=== PATIENT | male | born 1935 | race Caucasian/White ===

== ENCOUNTER 2018-06-13 14:56 | Emergency (ER) | payer MEDICARE, OTHER ==
[2018-06-13 15:56] VITALS: BP 125/51
[2018-06-13] MEDS ORDERED: Doxycycline 100 MG in Sodium Chloride 0.9% 100 ML IV ONE (16:09)
[2018-06-13] MEDS ORDERED: Sodium Chloride 0.9% 10 ML Syringe FLUSH PRN (16:09)
--- NOTE | 2018-06-13 16:11 | EDM.PDOC ---
ED HPI GENERAL MEDICAL PROBLEM - General Chief Complaint: General Stated Complaint: WEAK/FEVER/DOESN'T FEEL WELL Time Seen by Provider: 06/13/18 16:01 Source of Information: Reports: Patient, Family, RN Notes Reviewed History Limitations: Reports: No Limitations - History of Present Illness INITIAL COMMENTS - FREE TEXT/NARRATIVE: 82-year-old gentleman presents emergency department today complaint of body aches fever generalized feeling ill, he states he's had it for a few days he has some good days and bad days it tends to wax and wane. No nausea vomiting shortness breath or chest pain he does admit to finding a deer tick about 3-4 weeks ago that was attached he is unsure of the duration - Related Data Allergies Allergy/AdvReac Type Severity Reaction Status Date / Time naproxen sodium [From Aleve] Allergy Other Verified 06/13/18 15:32 Sulfa (Sulfonamide Allergy Other Verified 06/13/18 15:32 Antibiotics) Home Meds: Home Meds Aspirin [Halfprin] 81 mg PO DAILY 03/24/16 [History] Felodipine [Felodipine ER] 10 mg PO DAILY 03/24/16 [History] Fluocinonide [Lidex 0.05% Crm] 1 applic TOP BID 03/24/16 [History] Lisinopril 40 mg PO DAILY 03/24/16 [History] Simvastatin [Zocor] 20 mg PO BEDTIME 03/24/16 [History] Acetaminophen 1 tab PO BID 04/10/16 [History] Multivitamin [Multivitamins] 2 cap PO DAILY 04/10/16 [History] Nitroglycerin [Nitrostat] 1 tab SL ASDIRECTED PRN 04/10/16 [History] Past Medical History HEENT History: Reports: Cataract Cardiovascular History: Reports: High Cholesterol, Hypertension Genitourinary History: Reports: Renal Calculus Musculoskeletal History: Reports: Fracture - Past Surgical History HEENT Surgical History: Reports: Cataract Surgery Cardiovascular Surgical History: Reports: Carotid Endarterectomy, Other (See Below) GI Surgical History: Reports: Colonoscopy Social & Family History - Tobacco Use Smoking Status *Q: Never Smoker ED ROS GENERAL - Review of Systems Review Of Systems: See Below Constitutional: Reports: Fever, Chills, Fatigue HEENT: Reports: No Symptoms Respiratory: Reports: No Symptoms Cardiovascular: Reports: No Symptoms GI/Abdominal: Reports: No Symptoms : Reports: No Symptoms Musculoskeletal: Reports: Muscle Pain, Muscle Stiffness Skin: Reports: Rash (Rash now resolved) Neurological: Reports: No Symptoms ED EXAM, GENERAL - Physical Exam Exam: See Below Free Text/Narrative:: General: Male, not in any distress, alert and oriented x3 HEENT: head is atraumatic normocephalic, eyes pupils equal round reactive to light, sclera clear no conjunctivitis appreciated. Ears tympanic membranes clear and schwartz landmarks and light reflex are present bilaterally canals are clear. Nose no septal deviation, nares are clear, no blood present. Mouth mucosa is moist and pink no erythema or exudate noted in soft palate, tongue is midline uvula is midline, dentition is intact. Neck: Supple no thyromegaly no tracheal deviation. Nodes: Cervical nodes subclavicular nodes nontender no palpable lymphadenopathy noted. Lungs: clear to auscultation bilaterally with symmetrical respirations, no adventitious noise appreciated. CV: Regular rate and rhythm S1 and S2 appreciated no murmurs rubs or gallops noted. Abdomen: Soft, nontender, no palpable masses or organomegaly appreciated, no distention no guarding bowel sounds are present, . Neuro: Cranial nerves II through XII grossly intact Skin: Warm and dry, intact Extremities: No lower extremity edema appreciated, Course - Vital Signs Last Recorded V/S: Last Vital Signs Temp 100.2 F 06/13/18 15:38 Pulse 80 06/13/18 15:38 Resp 16 06/13/18 15:38 BP 125/51 L 06/13/18 15:55 Pulse Ox 89 L 06/13/18 15:55 - Orders/Labs/Meds Orders: Active Orders 24 hr Category Date Time Status Peripheral IV Care [RC] . DIRECTED Care 06/13/18 16:09 Active Sodium Chloride 0.9% [Saline Flush] Med 06/13/18 16:09 Active 10 ml FLUSH ASDIRECTED PRN Peripheral IV Insertion Adult [OM.PC] Urgent Oth 06/13/18 16:09 Ordered Medication Orders Sodium Chloride (Saline Flush) 10 ml FLUSH ASDIRECTED PRN PRN Reason: Keep Vein Open Last Admin: 06/13/18 16:32 Dose: 10 ml Labs: Laboratory Tests 06/13/18 06/13/18 06/13/18 Range/Units 16:09 16:09 16:09 WBC 14.6 H (4.5-11.0) K/uL RBC 4.73 (4.30-5.90) M/uL Hgb 14.0 (12.0-15.0) g/dL Hct 41.9 (40.0-54.0) % MCV 89 (80-98) fL MCH 30 (27-31) pg MCHC 33 (32-36) % Plt Count 203 (150-400) K/uL Neut % (Auto) 85 H (36-66) % Lymph % (Auto) 7 L (24-44) % [place] % (Auto) 8 H (2-6) % Eos % (Auto) 0 L (2-4) % Baso % (Auto) 0 (0-1) % Sodium 136 L (140-148) mmol/L Potassium 4.2 (3.6-5.2) mmol/L Chloride 101 (100-108) mmol/L Carbon Dioxide 27 (21-32) mmol/L Anion Gap 12.2 (5.0-14.0) mmol/L BUN 18 (7-18) mg/dL Creatinine 1.3 (0.8-1.3) mg/dL Est Cr Clr Drug Dosing 46.01 mL/min Estimated GFR (MDRD) 53 L (>60) Glucose 120 H (74-106) mg/dL Lactic Acid 1.3 (0.4-2.0) mmol/L Calcium 8.7 (8.5-10.1) mg/dL Total Bilirubin 0.8 D (0.2-1.0) mg/dL AST 22 (15-37) U/L ALT 37 (12-78) U/L Alkaline Phosphatase 111 (46-116) U/L Total Protein 6.6 (6.4-8.2) g/dL Albumin 3.4 (3.4-5.0) g/dL Globulin 3.2 (2.3-3.5) g/dL Albumin/Globulin Ratio 1.1 L (1.2-2.2) Meds: Medications Generic Name Dose Route Start Last Admin Trade Name Freq PRN Reason Stop Dose Admin Sodium Chloride 10 ml 06/13/18 16:09 06/13/18 16:32 Saline Flush FLUSH 10 ml ASDIRECTED PRN Administration Keep Vein Open Discontinued Medications Generic Name Dose Route Start Last Admin Trade Name Octavio PRN Reason Stop Dose Admin Doxycycline Hyclate 100 mg/ 100 mls @ 100 mls/hr 06/13/18 16:09 06/13/18 16: 32 Sodium Chloride IV 06/13/18 17:08 100 mls/hr ONETIME ONE Administration Departure - Departure Time of Disposition: 18:00 Disposition: Home, Self-Care 01 Condition: Good Clinical Impression: Tick bite Qualifiers: Encounter type: initial encounter Qualified Code(s): W57.XXXA - Bitten or stung by nonvenomous insect and other nonvenomous arthropods, initial encounter - Discharge Information Referrals: Dayron Waterman MD [Primary Care Provider] - Forms: ED Department Discharge Additional Instructions: Start the doxycycline tomorrow 100 mg 2 times a day for 14 days follow-up with your primary care in 3-5 days if no improvement call return to the emergency department worsening of symptoms - My Orders Last 24 Hours: My Active Orders 06/13/18 16:09 Peripheral IV Care [RC] . DIRECTED Sodium Chloride 0.9% [Saline Flush] 10 ml FLUSH ASDIRECTED PRN Peripheral IV Insertion Adult [OM.PC] Urgent - Assessment/Plan Last 24 Hours: My Active Orders 06/13/18 16:09 Peripheral IV Care [RC] . DIRECTED Sodium Chloride 0.9% [Saline Flush] 10 ml FLUSH ASDIRECTED PRN Peripheral IV Insertion Adult [OM.PC] Urgent Plan: Assessment Acuity = acute Site and laterality = probable tickborne illness Etiology = probable deer tick exposure Manifestations = body aches, fever Location of injury = Home Lab values = CBC, CMP unremarkable Plan Elected to treat empirically with doxycycline he initially was given 1 dose 100 mg IV prescription written for doxycycline 100 mg by mouth twice a day 14 days and follow-up with primary care 3-5 days if no improvement This note was dictated using [employer] voice recognition software please call with any questions on syntax or grammar.
== END 2018-06-13 17:45 | disposition home or self-care (01) ==
LOC: JP.ED 14:56
DX: T14.8XXA Other injury of unspecified body region, initial encounter (principal); I10 Essential (primary) hypertension; Z88.2 Allergy status to sulfonamides; Z88.8 Allergy status to other drugs, medicaments and biological substances; Z79.899 Other long term (current) drug therapy; Z79.82 Long term (current) use of aspirin; W57.XXXA Bitten or stung by nonvenomous insect and other nonvenomous arthropods, initial encounter
CPT/HCPCS: 36415; 80053; 83605; 85025; 96365; 99284; J3490; J7030; J7050

== ENCOUNTER 2019-07-12 13:18 | Emergency (ER) | payer MEDICARE, OTHER ==
[2019-07-12 13:35] VITALS: BP 114/45; PULSE 51
--- NOTE | 2019-07-12 13:37 | EDM.PDOC ---
ED HPI GENERAL MEDICAL PROBLEM - General Chief Complaint: Chest Pain Stated Complaint: CHEST PAIN STOMACH PAIN Time Seen by Provider: 07/12/19 13:20 Source of Information: Reports: Patient, Family History Limitations: Reports: No Limitations - History of Present Illness INITIAL COMMENTS - FREE TEXT/NARRATIVE: 83-year-old male arrives to the emergency room with epigastric and chest pain. This is a recurring problem for him over the past several months. He has a known left bundle-branch block, and on evaluation one month ago he was flown directly from his home to [place] and had a 2 day workup including an echocardiogram and a nuclear medicine Cardiolite. This was all negative and they felt it may be related to his gallbladder or gastritis. He had a few episodes since that time, today he developed some epigastric pain and it wouldn' t go away so he came in. He did take 4 Tums and a couple aspirin. No shortness of breath, he had some nausea but no vomiting, no diarrhea. No fevers or chills. Onset: Sudden Location: Reports: Chest, Abdomen Worsens with: Denies: Breathing, Movement Associated Symptoms: Reports: Other (Brief nausea, no emesis). Denies: Fever/ Chills - Related Data Allergies Allergy/AdvReac Type Severity Reaction Status Date / Time naproxen sodium [From Aleve] Allergy Other Verified 07/12/19 13:29 Sulfa (Sulfonamide Allergy Other Verified 07/12/19 13:29 Antibiotics) Home Meds: Home Meds Aspirin [Halfprin] 81 mg PO DAILY 03/24/16 [History] Felodipine [Felodipine ER] 10 mg PO DAILY 03/24/16 [History] Fluocinonide [Lidex 0.05% Crm] 1 applic TOP BID 03/24/16 [History] Lisinopril 40 mg PO DAILY 03/24/16 [History] Simvastatin [Zocor] 20 mg PO BEDTIME 03/24/16 [History] Acetaminophen 1 tab PO BID 04/10/16 [History] Multivitamin [Multivitamins] 2 cap PO DAILY 04/10/16 [History] Nitroglycerin [Nitrostat] 1 tab SL ASDIRECTED PRN 04/10/16 [History] Carvedilol 3.125 mg PO DAILY 07/12/19 [History] Past Medical History HEENT History: Reports: Cataract Cardiovascular History: Reports: High Cholesterol, Hypertension Genitourinary History: Reports: Renal Calculus Musculoskeletal History: Reports: Fracture - Past Surgical History HEENT Surgical History: Reports: Cataract Surgery Cardiovascular Surgical History: Reports: Carotid Endarterectomy GI Surgical History: Reports: Colonoscopy Social & Family History - Tobacco Use Smoking Status *Q: Former Smoker Used Tobacco, but Quit: Yes Month/Year Tobacco Last Used: 2012 - Caffeine Use Caffeine Use: Reports: Coffee - Recreational Drug Use Recreational Drug Use: No ED ROS GENERAL - Review of Systems Review Of Systems: See Below Constitutional: Reports: Decreased Appetite. Denies: Fever, Chills HEENT: Reports: No Symptoms Respiratory: Denies: Shortness of Breath Cardiovascular: Reports: Chest Pain GI/Abdominal: Reports: Abdominal Pain : Reports: No Symptoms Skin: Reports: No Symptoms Neurological: Denies: Headache Psychiatric: Denies: Anxiety ED EXAM, GENERAL - Physical Exam Exam: See Below Exam Limited By: No Limitations General Appearance: Alert, No Apparent Distress Eye Exam: Bilateral Eye: Normal Inspection Head: Atraumatic Neck: Supple, Non-Tender Respiratory/Chest: Lungs Clear Cardiovascular: Regular Rate, Rhythm GI/Abdominal: Soft, Tender (Reacts with some tenderness in the epigastric area only, no guarding) Extremities: Normal Inspection Neurological: Alert, Oriented Psychiatric: Normal Affect, Normal Mood Skin Exam: Warm, Dry EKG INTERPRETATION QRS: LBBB (Consistent with past EKGs) Course - Vital Signs Last Recorded V/S: Last Vital Signs Temp 96.5 F 07/12/19 13:35 Pulse 51 L 07/12/19 13:35 Resp 11 L 07/12/19 13:35 BP 114/45 L 07/12/19 13:35 Pulse Ox 90 L 07/12/19 13:35 - Orders/Labs/Meds Orders: Active Orders 24 hr Category Date Time Status EKG Documentation Completion [RC] ASDIRECTED Care 07/12/19 13:31 Active EKG 12 Lead [EK] Routine Ther 07/12/19 13:31 Ordered Labs: Laboratory Tests 07/12/19 07/12/19 Range/Units 13:42 13:42 WBC 5.9 (4.5-11.0) K/uL RBC 4.45 (4.30-5.90) M/uL Hgb 13.4 (12.0-15.0) g/dL Hct 40.3 (40.0-54.0) % MCV 91 (80-98) fL MCH 30 (27-31) pg MCHC 33 (32-36) % Plt Count 197 (150-400) K/uL Neut % (Auto) 62 (36-66) % Lymph % (Auto) 25 (24-44) % Gordon % (Auto) 12 H (2-6) % Eos % (Auto) 2 (2-4) % Baso % (Auto) 0 (0-1) % Sodium 142 (140-148) mmol/L Potassium 4.9 (3.6-5.2) mmol/L Chloride 106 (100-108) mmol/L Carbon Dioxide 31 (21-32) mmol/L Anion Gap 5.2 (5.0-14.0) mmol/L BUN 28 H D (7-18) mg/dL Creatinine 1.4 H (0.8-1.3) mg/dL Est Cr Clr Drug Dosing 42.00 mL/min Estimated GFR (MDRD) 49 L (>60) Glucose 129 H (74-106) mg/dL Calcium 8.7 (8.5-10.1) mg/dL Total Bilirubin 0.5 (0.2-1.0) mg/dL AST 89 H D (15-37) U/L ALT 58 (12-78) U/L Alkaline Phosphatase 107 (46-116) U/L Troponin I < 0.017 (0.000-0.056) ng/mL Total Protein 6.4 (6.4-8.2) g/dL Albumin 3.6 (3.4-5.0) g/dL Globulin 2.8 (2.3-3.5) g/dL Albumin/Globulin Ratio 1.3 (1.2-2.2) - Re-Assessments/Exams Free Text/Narrative Re-Assessment/Exam: 07/12/19 14:19 Patient remained asymptomatic in the emergency room, EKG was compared to previous and looks consistent and unchanged with a left bundle branch block. Troponin was negative, CBC normal. He had mild renal insufficiency also comparable to past levels. He has a cardiology follow-up in 4 days, he is going to keep that appointment and I recommended he start 20 mg of omeprazole daily prior to his first meal. He may need an EGD or gastroenterology workup if not improving. Liver and gallbladder enzymes were also normal today. Departure - Departure Time of Disposition: 14:48 Disposition: Home, Self-Care 01 Condition: Good Clinical Impression: Atypical chest pain - Discharge Information Instructions: Nonspecific Chest Pain Referrals: Dayron Waterman MD [Primary Care Provider] - Forms: ED Department Discharge Care Plan Goals: Continue your current medications, and add 20 mg of omeprazole once daily. Keep your current appointments. Return anytime if worsening or concerns. - My Orders Last 24 Hours: My Active Orders 07/12/19 13:31 EKG Documentation Completion [RC] ASDIRECTED EKG 12 Lead [EK] Routine - Assessment/Plan Last 24 Hours: My Active Orders 07/12/19 13:31 EKG Documentation Completion [RC] ASDIRECTED EKG 12 Lead [EK] Routine
== END 2019-07-12 14:40 | disposition home or self-care (01) ==
LOC: JP.ED 13:18
DX: R07.89 Other chest pain (principal); I10 Essential (primary) hypertension; E78.00 Pure hypercholesterolemia, unspecified; Z88.2 Allergy status to sulfonamides; Z88.8 Allergy status to other drugs, medicaments and biological substances; Z79.82 Long term (current) use of aspirin; Z79.899 Other long term (current) drug therapy; Z87.891 Personal history of nicotine dependence; Z98.890 Other specified postprocedural states
CPT/HCPCS: 36415; 80053; 84484; 85025; 93005; 93010; 99283; 99284-25

== ENCOUNTER 2019-08-08 15:25 | Emergency (ER) | payer MEDICARE, OTHER ==
--- NOTE | 2019-08-08 17:39 | EDM.PDOC ---
ED HPI GENERAL MEDICAL PROBLEM - General Chief Complaint: Chest Pain Stated Complaint: FAINTED Time Seen by Provider: 08/08/19 15:25 Source of Information: Reports: Patient, EMS, Family History Limitations: Reports: No Limitations - History of Present Illness INITIAL COMMENTS - FREE TEXT/NARRATIVE: 83-year-old male brought in by ambulance after syncopal episode following a period of chest pain and 2 sublingual nitroglycerin. He is now asymptomatic. 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 Pain Score (Numeric/FACES): 0 - Related Data Allergies Allergy/AdvReac Type Severity Reaction Status Date / Time naproxen sodium [From Aleve] Allergy Other Verified 08/08/19 15:37 Sulfa (Sulfonamide Allergy Other Verified 08/08/19 15:37 Antibiotics) Home Meds: Home Meds Aspirin [Halfprin] 81 mg PO DAILY 03/24/16 [History] Felodipine [Felodipine ER] 10 mg PO DAILY 03/24/16 [History] Fluocinonide [Lidex 0.05% Crm] 1 applic TOP BID 03/24/16 [History] Lisinopril 40 mg PO DAILY 03/24/16 [History] Simvastatin [Zocor] 20 mg PO BEDTIME 03/24/16 [History] Acetaminophen 1 tab PO BID 04/10/16 [History] Multivitamin [Multivitamins] 2 cap PO DAILY 04/10/16 [History] Nitroglycerin [Nitrostat] 1 tab SL ASDIRECTED PRN 04/10/16 [History] Past Medical History HEENT History: Reports: Cataract Cardiovascular History: Reports: High Cholesterol, Hypertension, Syncope, Other (See Below) Other Cardiovascular History: Hospitialized at [facility] June 13 to .for syncopy Genitourinary History: Reports: Renal Calculus Musculoskeletal History: Reports: Fracture - Infectious Disease History Infectious Disease History: Reports: Chicken Pox, Mumps - Past Surgical History HEENT Surgical History: Reports: Cataract Surgery Cardiovascular Surgical History: Reports: Carotid Endarterectomy GI Surgical History: Reports: Colonoscopy Social & Family History - Tobacco Use Smoking Status *Q: Former Smoker Years of Tobacco use: 60 Packs/Tins Daily: 1 Used Tobacco, but Quit: Yes Month/Year Tobacco Last Used: 2012 Second Hand Smoke Exposure: No - Caffeine Use Caffeine Use: Reports: Coffee, Soda - Alcohol Use Days Per Week of Alcohol Use: 0 - Recreational Drug Use Recreational Drug Use: No ED ROS GENERAL - Review of Systems Review Of Systems: See Below Constitutional: Reports: Malaise. Denies: Fever, Chills HEENT: Reports: No Symptoms Respiratory: Denies: No Symptoms, Shortness of Breath Cardiovascular: Reports: Chest Pain GI/Abdominal: Denies: Abdominal Pain, Nausea, Vomiting : Reports: No Symptoms Skin: Reports: Pallor, Diaphoresis Neurological: Reports: Syncope ED EXAM, GENERAL - Physical Exam Exam: See Below Exam Limited By: No Limitations General Appearance: Alert, No Apparent Distress Eye Exam: Bilateral Eye: Normal Inspection Head: Atraumatic Respiratory/Chest: No Respiratory Distress, Lungs Clear Cardiovascular: Regular Rate, Rhythm, Extra Beats GI/Abdominal: Soft, Non-Tender Extremities: Normal Inspection. No: Pedal Edema Neurological: Alert, Oriented, No Motor/Sensory Deficits Psychiatric: Normal Affect, Normal Mood Course - Vital Signs Last Recorded V/S: Last Vital Signs Temp 96.8 F 08/08/19 17:00 Pulse 64 08/08/19 17:00 Resp 14 08/08/19 17:00 BP 128/56 L 08/08/19 17:00 Pulse Ox 94 L 08/08/19 17:00 - Orders/Labs/Meds Labs: Laboratory Tests 08/08/19 Range/Units 17:43 Troponin I < 0.017 (0.000-0.056) ng/mL - Re-Assessments/Exams Free Text/Narrative Re-Assessment/Exam: 08/08/19 17:53 After long discussion with the patient regarding his symptoms, it felt likely that he was syncopal from his nitroglycerin. He will stay for 3 hours to be monitored and we will draw a troponin of 4 hours after his pain. 08/08/19 18:11 Repeat troponin was 0, patient did not have any symptoms while in the emergency room. He was discharged. Departure - Departure Time of Disposition: 18:24 Disposition: Home, Self-Care 01 Condition: Good Clinical Impression: Atypical chest pain, Syncope - Discharge Information Instructions: Nonspecific Chest Pain Referrals: Sperle,Dayron J, MD [Primary Care Provider] - Forms: ED Department Discharge Care Plan Goals: Try liquid antacid next time he developed chest discomfort before trying nitroglycerin. Also consider returning to a daily Prilosec. Return anytime if pain is persistent or you develop other concerns.
[2019-08-08 18:24] VITALS: BP 128/56; PULSE 64
== END 2019-08-08 18:24 | disposition home or self-care (01) ==
LOC: JP.ED 15:25
DX: R55 Syncope and collapse (principal); R07.89 Other chest pain; I10 Essential (primary) hypertension; Z88.2 Allergy status to sulfonamides; Z79.82 Long term (current) use of aspirin; Z79.899 Other long term (current) drug therapy; E78.00 Pure hypercholesterolemia, unspecified; Z98.890 Other specified postprocedural states; Z87.891 Personal history of nicotine dependence
CPT/HCPCS: 36415; 84484; 99284

== ENCOUNTER 2020-01-12 18:27 | Inpatient (IN) | payer MEDICARE, OTHER ==
--- NOTE | 2020-01-12 19:36 | EDM.PDOC ---
ED HPI GENERAL MEDICAL PROBLEM - General Chief Complaint: Abdominal Pain Stated Complaint: STOMACH ACHE,CHILLS Time Seen by Provider: 01/12/20 19:00 Source of Information: Reports: Patient, Family History Limitations: Reports: No Limitations - History of Present Illness INITIAL COMMENTS - FREE TEXT/NARRATIVE: 84-year-old male with epigastric pain for the last 5 hours, took Maalox which "usually helps" but this time it did not. A couple hours later he tried again and when it did not help he went into the clinic. They sent him directly over to the emergency room. He does have a coronary artery disease history and had 2 stents last July. Does not have chest pain but the epigastric pain does radiate to his shoulders. Denies shortness of breath, cough, fevers, nausea or vomiting but on his way from the clinic over to the emergency room he did develop shaking chills. His epigastric pain seems to be resolving. An EKG done on arrival to the emergency room showed a left bundle branch block with a pattern consistent with an EKG done last fall. Onset: Sudden (Pain started fairly suddenly 4-1/2 hours ago) Location: Reports: Abdomen (Epigastric radiating into the shoulders) Associated Symptoms: Reports: Other (Developed chills on his way over to the emergency room from the clinic). Denies: Cough, Nausea/Vomiting, Shortness of Breath Abdominal Pain Score (Numeric/FACES): 7 - Related Data Allergies Allergy/AdvReac Type Severity Reaction Status Date / Time naproxen sodium [From Aleve] Allergy Other Verified 01/12/20 18:42 Sulfa (Sulfonamide Allergy Other Verified 01/12/20 18:42 Antibiotics) Home Meds: Home Meds Aspirin [Halfprin] 81 mg PO DAILY 03/24/16 [History] Felodipine [Felodipine ER] 10 mg PO DAILY 03/24/16 [History] Fluocinonide [Lidex 0.05% Crm] 1 applic TOP BID 03/24/16 [History] Lisinopril 40 mg PO DAILY 03/24/16 [History] Simvastatin [Zocor] 20 mg PO BEDTIME 03/24/16 [History] Acetaminophen 1 tab PO BID 04/10/16 [History] Multivitamin [Multivitamins] 2 cap PO DAILY 04/10/16 [History] Nitroglycerin [Nitrostat] 1 tab SL ASDIRECTED PRN 04/10/16 [History] Clopidogrel Bisulfate [Clopidogrel] 75 mg PO DAILY 01/12/20 [History] Mag Hydrox/Aluminum Hyd/Simeth [Mylanta Maximum Strength Liq] 10 ml PO ASDIRECTED 01/12/20 [History] Omeprazole 40 mg PO DAILY 01/12/20 [History] Past Medical History HEENT History: Reports: Cataract Cardiovascular History: Reports: High Cholesterol, Hypertension, Stents, Syncope , Other (See Below) Other Cardiovascular History: Hospitialized at [facility] June 13 to .for syncopy Genitourinary History: Reports: Renal Calculus Musculoskeletal History: Reports: Fracture - Infectious Disease History Infectious Disease History: Reports: Chicken Pox, Mumps - Past Surgical History HEENT Surgical History: Reports: Cataract Surgery Cardiovascular Surgical History: Reports: Carotid Endarterectomy GI Surgical History: Reports: Colonoscopy Social & Family History - Tobacco Use Smoking Status *Q: Never Smoker - Caffeine Use Caffeine Use: Reports: Coffee, Soda ED ROS GENERAL - Review of Systems Review Of Systems: See Below Constitutional: Reports: Chills. Denies: Fever, Malaise HEENT: Reports: Other (Very hard of hearing) Respiratory: Denies: Shortness of Breath, Cough Cardiovascular: Denies: Chest Pain GI/Abdominal: Reports: Abdominal Pain (Epigastric radiating to the shoulders) : Reports: No Symptoms Skin: Reports: No Symptoms Neurological: Reports: Other (Hearing loss) ED EXAM, GENERAL - Physical Exam Exam: See Below Exam Limited By: No Limitations General Appearance: Alert, No Apparent Distress, Other (Currently experiencing shaking chills) Eye Exam: Bilateral Eye: EOMI (No jaundice) Head: Atraumatic Respiratory/Chest: No Respiratory Distress, Lungs Clear Cardiovascular: Regular Rate, Rhythm, No Murmur GI/Abdominal: Soft, Non-Tender, Other (On palpating the epigastric area it is nontender, he said that "hurt over at the clinic".) Extremities: Normal Inspection. No: Pedal Edema Neurological: Alert, Oriented Psychiatric: Normal Affect, Normal Mood Skin Exam: Warm, Dry EKG INTERPRETATION QRS: LBBB Comparison: No Change (No change from July of last year) Course - Vital Signs Last Recorded V/S: Last Vital Signs Temp 101.8 F H 01/12/20 22:26 Pulse 98 02/19/20 22:26 Resp 16 01/12/20 22:26 BP 140/47 L 01/12/20 22:26 Pulse Ox 90 L 01/12/20 23:21 - Orders/Labs/Meds Orders: Active Orders 24 hr Category Date Time Status CULTURE BLOOD [BC] Urgent Lab 01/12/20 20:49 Received CULTURE BLOOD [BC] Urgent Lab 01/12/20 20:55 Received Blood Culture x2 Reflex Set [OM.PC] Urgent Oth 01/12/20 20:41 Ordered EKG 12 Lead [EK] Routine Ther 01/12/20 19:04 Stop Req Medication Orders Docusate Sodium (Colace) 100 mg PO BID PRN PRN Reason: Constipation Ampicillin Sodium/Sulbactam (Sodium 3 gm/ Sodium Chloride) 100 mls @ 200 mls/ hr IV Q6H [facility] Last Admin: 01/12/20 23:20 Dose: 200 mls/hr Aztreonam 1 gm/ Sodium (Chloride) 50 mls @ 100 mls/hr IV Q12H [facility] Last Admin: 01/12/20 23:51 Dose: 100 mls/hr Sodium Chloride (Normal Saline) 1,000 mls @ 125 mls/hr IV ASDIRECTED [facility] Last Admin: 01/12/20 22:54 Dose: 125 mls/hr Morphine Sulfate (Morphine) 2 mg IVPUSH Q2H PRN PRN Reason: Pain (severe 7-10) Nitroglycerin (Nitrostat) 0.4 mg SL ASDIRECTED PRN PRN Reason: Chest Pain Pantoprazole Sodium (Protonix Iv) 40 mg IV Q12H [facility] Last Admin: 01/12/20 23:12 Dose: 40 mg Labs: Laboratory Tests 01/12/20 01/12/20 01/12/20 Range/Units 19:10 19:10 19:10 WBC 10.6 (4.5-11.0) K/uL RBC 4.82 (4.30-5.90) M/uL Hgb 14.1 (12.0-15.0) g/dL Hct 43.0 (40.0-54.0) % MCV 89 (80-98) fL MCH 29 (27-31) pg MCHC 33 (32-36) % Plt Count 218 (150-400) K/uL Neut % (Auto) 92 H (36-66) % Lymph % (Auto) 6 L (24-44) % [place] % (Auto) 2 (2-6) % Eos % (Auto) 0 L (2-4) % Baso % (Auto) 0 (0-1) % Sodium 144 (140-148) mmol/L Potassium 4.1 (3.6-5.2) mmol/L Chloride 105 (100-108) mmol/L Carbon Dioxide 28 (21-32) mmol/L Anion Gap 10.6 (5.0-14.0) mmol/L BUN 27 H (7-18) mg/dL Creatinine 1.1 (0.8-1.3) mg/dL Est Cr Clr Drug Dosing 52.54 mL/min Estimated GFR (MDRD) > 60 (>60) Glucose 104 (74-106) mg/dL Lactic Acid 2.5 H (0.4-2.0) mmol/L Calcium 8.6 (8.5-10.1) mg/dL Total Bilirubin 1.4 H D (0.2-1.0) mg/dL AST 853 H D (15-37) U/L ALT 464 H (12-78) U/L Alkaline Phosphatase 248 H D (46-116) U/L Troponin I < 0.017 (0.000-0.056) ng/mL Total Protein 7.0 (6.4-8.2) g/dL Albumin 4.1 (3.4-5.0) g/dL Globulin 2.9 (2.3-3.5) g/dL Albumin/Globulin Ratio 1.4 (1.2-2.2) Amylase 87 (25-115) U/L Lipase 510 H (73-393) U/L Meds: Medications Generic Name Dose Route Start Last Admin Trade Name Freq PRN Reason Stop Dose Admin Docusate Sodium 100 mg 01/12/20 22:43 Colace PO BID PRN Constipation Ampicillin Sodium/Sulbactam 100 mls @ 200 mls/hr 01/12/20 23:00 01/12/20 23: 20 Sodium 3 gm/ Sodium Chloride IV 200 mls/hr Q6H NORAH Administration Aztreonam 1 gm/ Sodium 50 mls @ 100 mls/hr 01/13/20 00:00 01/12/20 23:51 Chloride IV 100 mls/hr Q12H NORAH Administration Sodium Chloride 1,000 mls @ 125 mls/hr 01/12/20 22:43 01/12/20 22:54 Normal Saline IV 125 mls/hr ASDIRECTED NORAH Administration Morphine Sulfate 2 mg 01/12/20 22:43 Morphine IVPUSH Q2H PRN Pain (severe 7-10) Nitroglycerin 0.4 mg 01/12/20 22:43 Nitrostat SL ASDIRECTED PRN Chest Pain Pantoprazole Sodium 40 mg 01/12/20 23:00 01/12/20 23:12 Protonix Iv IV 40 mg Q12H NORAH Administration Discontinued Medications Generic Name Dose Route Start Last Admin Trade Name Silvestreq PRN Reason Stop Dose Admin Acetaminophen 1,000 mg/ Premix 100 mls @ 400 mls/hr 01/12/20 22:43 01/12/20 22:54 IV 01/12/20 22:57 400 mls/hr NOW ONE Administration Ondansetron HCl 4 mg 01/12/20 19:38 01/12/20 19:44 Zofran Odt PO 01/12/20 19:39 4 mg ONETIME ONE Administration - Re-Assessments/Exams Free Text/Narrative Re-Assessment/Exam: 01/12/20 19:35 EKG showed no acute changes from last fall. Because of the shaking chills temperature was taken and it was 98.1, it was repeated after 15 minutes and it was still at 98. CBC, CMP, amylase, lipase and troponin were obtained as well as influenza antigens. No further treatment was given pending tests. 01/12/20 20:13 White count and hemoglobin were normal but he did have 95% neutrophils in his differential. He did start developing a fever with a temperature near 101, and became nauseated. He was given 4 mg of sublingual Zofran. His abdominal pain continued to improve. CMP returned abnormal, bilirubin and liver enzymes were all elevated as well as mild elevation of his lipase. A screening ultrasound of the gallbladder showed numerous stones and likely thickened gallbladder wall , this will be confirmed with an ordered ultrasound. Troponin was negative, influenza antigens negative. 01/13/20 01:18 Ultrasound did confirm what appears to be chronic gallbladder wall thickening and stones consistent with past ultrasounds, however the LFTs and lipase were not elevated in the past. His lactic acid is also 2.5. The hospitalist service was consulted for admission, surgical services were consulted to discuss cholecystectomy tomorrow. Blood cultures were obtained and IV antibiotics started per the hospitalist service. Departure - Departure Time of Disposition: 22:17 Disposition: Admitted As Inpatient 67 Clinical Impression: Cholecystitis Abdominal pain Qualifiers: Abdominal location: epigastric Qualified Code(s): R10.13 - Epigastric pain - Discharge Information Sepsis Event Note - Evaluation Sepsis Screening Result: No Definite Risk - Focused Exam Vital Signs: Vital Signs Temp Pulse Resp BP Pulse Ox 01/12/20 20:10 93 16 131/58 L 91 L 01/12/20 19:41 100.5 F 94 16 146/45 H 95 01/12/20 18:47 97.4 F 94 16 182/106 H 93 L 01/12/20 18:40 97.4 F 94 16 182/106 H 93 L Date Exam was Performed: 01/13/20 Time Exam was Performed: 01:18 - My Orders Last 24 Hours: My Active Orders 01/12/20 19:04 EKG 12 Lead [EK] Routine 01/12/20 20:41 Blood Culture x2 Reflex Set [OM.PC] Urgent 01/12/20 20:49 CULTURE BLOOD [BC] Urgent 01/12/20 20:55 CULTURE BLOOD [BC] Urgent - Assessment/Plan Last 24 Hours: My Active Orders 01/12/20 19:04 EKG 12 Lead [EK] Routine 01/12/20 20:41 Blood Culture x2 Reflex Set [OM.PC] Urgent 01/12/20 20:49 CULTURE BLOOD [BC] Urgent 01/12/20 20:55 CULTURE BLOOD [BC] Urgent
[2020-01-12] MEDS ORDERED: Ondansetron 4 MG Tab.DIS PO ONE (19:38)
--- NOTE | 2020-01-12 21:52 | CRLUS ---
INDICATION: Epigastric pain and elevated liver function tests. TECHNIQUE: Ultrasound abdomen limited. Sonographic images of the right upper quadrant were obtained using schwartz-scale and color Doppler images. COMPARISON: Right upper quadrant ultrasound 06/14/2019 FINDINGS: Liver: Normal in size and echotexture. No masses. No intrahepatic biliary dilatation. Gallbladder: Gallbladder wall thickening with numerous gallstones. No pericholecystic fluid. Negative sonographic Cardoza`s sign. Common bile duct: 7 mm. Pancreas: Normal. Right kidney: Normal in size. Normal echotexture and cortex. No masses, stones, or hydronephrosis. Right renal cyst measuring 2.0 centimeters. Vasculature: Atherosclerotic calcification abdominal aorta without abdominal aortic aneurysm. Inferior vena cava unremarkable. IMPRESSION: 1. Numerous gallstones with prominent gallbladder wall thickening. This appearance is similar to the 2019 ultrasound. 2. Borderline diameter common bile duct. No choledocholithiasis seen although the distal duct is obscured by bowel gas. Dictated by Girish Parmar MD @ Jan 12 2020 9:45PM Signed by Dr. Girish Parmar @ Jan 12 2020 9:51PM
--- NOTE | 2020-01-12 22:04 | PCM.HP.2 ---
H&P History of Present Illness - General Date of Service: 01/12/20 Admit Problem/Dx: Admission Diagnosis/Problem Admission Diagnosis/Problem Acute cholecystitis Source of Information: Patient, Family ( E[place]) History Limitations: Reports: No Limitations - History of Present Illness Initial Comments - Free Text/Narative: chief complaint: fever, weakness. 84-year-old male with epigastric pain for the last 5 hours, took Maalox which "usually helps" but this time it did not. A couple hours later he tried again and when it did not help he went into the clinic. They sent him directly over to the emergency room. He does have a coronary artery disease history and had 2 stents last July. Does not have chest pain but the epigastric pain does radiate to his shoulders. Denies shortness of breath, cough, fevers, nausea or vomiting but on his way from the clinic over to the emergency room he did develop shaking chills. His epigastric pain seems to be resolving. An EKG done on arrival to the emergency room showed a left bundle branch block with a pattern consistent with an EKG done last fall. Onset: Sudden (Pain started fairly suddenly 4-1/2 hours ago) Location: Reports: Abdomen (Epigastric radiating into the shoulders) Associated Symptoms: Reports: Other (Developed chills on his way over to the emergency room from the clinic). Denies: Cough, Nausea/Vomiting, Shortness of Breath Abdominal Pain Score (Numeric/FACES): 7 - Re-Assessments/Exams 01/12/20 19:35 EKG showed no acute changes from last fall. Because of the shaking chills temperature was taken and it was 98.1, it was repeated after 15 minutes and it was still at 98. CBC, CMP, amylase, lipase and troponin were obtained as well as influenza antigens. No further treatment was given pending tests. 01/12/20 20:13 White count and hemoglobin were normal but he did have 95% neutrophils in his differential. He did start developing a fever with a temperature near 101, and became nauseated. He was given 4 mg of sublingual Zofran. His abdominal pain continued to improve. CMP returned abnormal, bilirubin and liver enzymes were all elevated as well as mild elevation of his lipase. A screening ultrasound of the gallbladder showed numerous stones and likely thickened gallbladder wall , this will be confirmed with an ordered ultrasound. Troponin was negative, influenza antigens negative. [address] Philipp Rooney, Surgeon, will admit to Hospital for acute Cholecystitis. orders given for care. Onset of Symptoms: Reports: Gradual Duration of Symptoms: Reports: Hour(s): (onset of right upper abdomen pain radiates to back, nausea. fever, shaking chills.) Location: Reports: Abdomen, Radiates to (upper back) Quality: Reports: Ache, Sharp Severity: Moderate (rates pain at 7 out of 10) Improves with: Reports: None Worsens with: Reports: Movement (last meal of chips and cheese this afternoon.) Context: Reports: Other (2 + year history of gallbladder disease.) Associated Symptoms: Reports: Fever/Chills, Nausea/Vomiting, Weakness Abdominal Pain Score (Numeric/FACES): 7 - Related Data Allergies/Adverse Reactions: Allergies Allergy/AdvReac Type Severity Reaction Status Date / Time naproxen sodium [From Aleve] Allergy Other Verified 01/12/20 18:42 Sulfa (Sulfonamide Allergy Other Verified 01/12/20 18:42 Antibiotics) Home Medications: Home Meds Aspirin [Halfprin] 81 mg PO DAILY 03/24/16 [History] Felodipine [Felodipine ER] 10 mg PO DAILY 03/24/16 [History] Fluocinonide [Lidex 0.05% Crm] 1 applic TOP BID 03/24/16 [History] Lisinopril 40 mg PO DAILY 03/24/16 [History] Simvastatin [Zocor] 20 mg PO BEDTIME 03/24/16 [History] Acetaminophen 1 tab PO BID 04/10/16 [History] Multivitamin [Multivitamins] 2 cap PO DAILY 04/10/16 [History] Nitroglycerin [Nitrostat] 1 tab SL ASDIRECTED PRN 04/10/16 [History] Clopidogrel Bisulfate [Clopidogrel] 75 mg PO DAILY 01/12/20 [History] Mag Hydrox/Aluminum Hyd/Simeth [Mylanta Maximum Strength Liq] 10 ml PO ASDIRECTED 01/12/20 [History] Omeprazole 40 mg PO DAILY 01/12/20 [History] Past Medical History HEENT History: Reports: Cataract Cardiovascular History: Reports: High Cholesterol, Hypertension, Stents, Syncope , Other (See Below) Other Cardiovascular History: Hospitialized at [facility] June 13 to .for syncopy Genitourinary History: Reports: Renal Calculus Musculoskeletal History: Reports: Fracture - Infectious Disease History Infectious Disease History: Reports: Chicken Pox, Mumps - Past Surgical History HEENT Surgical History: Reports: Cataract Surgery Cardiovascular Surgical History: Reports: Carotid Endarterectomy GI Surgical History: Reports: Colonoscopy Social & Family History - Tobacco Use Smoking Status *Q: Never Smoker - Caffeine Use Caffeine Use: Reports: Coffee, Soda - Living Situation & Occupation Living situation: Reports: Occupation: Retired (lives with Ember, [place] of [place], [place]. near [place], [place] H&P Review of Systems - Review of Systems: Review Of Systems: See Below General: Reports: Fever, Chills, Weakness, Fatigue HEENT: Reports: Glasses, Other (hard of hearing -doesnot have his hearing aides on, natural teeth.) Pulmonary: Reports: No Symptoms Cardiovascular: Reports: No Symptoms Gastrointestinal: Reports: Abdominal Pain, Nausea, Other (bowel movement today "normal") Genitourinary: Reports: No Symptoms Musculoskeletal: Reports: Back Pain (upper back pain) Skin: Reports: No Symptoms Psychiatric: Reports: No Symptoms Hematologic/Lymphatic: Reports: No Symptoms Immunologic: Reports: No Symptoms Exam - Exam Exam: See Below - Vital Signs Vital Signs: Last Vital Signs Temp 38.1 C 01/12/20 19:41 Pulse 93 01/12/20 20:10 Resp 16 01/12/20 20:10 BP 131/58 L 01/12/20 20:10 Pulse Ox 91 L 01/12/20 20:10 Weight: 83.1 kg - Exam Quality Assessment: DVT Prophylaxis General: Alert, Oriented, Cooperative, Moderate Distress (weakness, pain with palpation of right abdomen. laying on left side for comfort) HEENT: PERRLA, Conjunctiva Clear, EOMI, Posterior Pharynx Clear, TMs Clear, Glasses, Other (hard of hearing - not wearing his hearing aides) Neck: Supple, Trachea Midline Lungs: Clear to Auscultation, Normal Respiratory Effort Cardiovascular: Regular Rate, Regular Rhythm, Normal S1, Normal S2 GI/Abdominal Exam: Normal Bowel Sounds, Soft, Tender (right mid to upper abdomen ) (Male) Exam: Deferred Rectal (Males) Exam: Deferred Back Exam: Normal Inspection, Full Range of Motion Extremities: Normal Inspection, Normal Range of Motion, No Pedal Edema, Normal Capillary Refill Peripheral Pulses: 2+: Radial (L), Radial (R) Skin: Warm, Dry, Intact Neurological: Strength Equal Bilateral, Normal Speech, Normal Tone Neuro Extensive - Mental Status: Alert, Oriented x3, Normal Mood/Affect, Normal Cognition Neuro Extensive - Motor, Sensory, Reflexes: Normal Gait, Normal Reflexes Psychiatric: Alert, Normal Affect, Normal Mood - Patient Data Lab Results Last 24 hrs: Laboratory Results - last 24 hr 01/12/20 01/12/20 01/12/20 Range/Units 19:10 19:10 19:10 WBC 10.6 (4.5-11.0) K/uL RBC 4.82 (4.30-5.90) M/uL Hgb 14.1 (12.0-15.0) g/dL Hct 43.0 (40.0-54.0) % MCV 89 (80-98) fL MCH 29 (27-31) pg MCHC 33 (32-36) % Plt Count 218 (150-400) K/uL Neut % (Auto) 92 H (36-66) % Lymph % (Auto) 6 L (24-44) % [place] % (Auto) 2 (2-6) % Eos % (Auto) 0 L (2-4) % Baso % (Auto) 0 (0-1) % Sodium 144 (140-148) mmol/L Potassium 4.1 (3.6-5.2) mmol/L Chloride 105 (100-108) mmol/L Carbon Dioxide 28 (21-32) mmol/L Anion Gap 10.6 (5.0-14.0) mmol/L BUN 27 H (7-18) mg/dL Creatinine 1.1 (0.8-1.3) mg/dL Est Cr Clr Drug Dosing 52.54 mL/min Estimated GFR (MDRD) > 60 (>60) Glucose 104 (74-106) mg/dL Lactic Acid 2.5 H (0.4-2.0) mmol/L Calcium 8.6 (8.5-10.1) mg/dL Total Bilirubin 1.4 H D (0.2-1.0) mg/dL AST 853 H D (15-37) U/L ALT 464 H (12-78) U/L Alkaline Phosphatase 248 H D (46-116) U/L Troponin I < 0.017 (0.000-0.056) ng/mL Total Protein 7.0 (6.4-8.2) g/dL Albumin 4.1 (3.4-5.0) g/dL Globulin 2.9 (2.3-3.5) g/dL Albumin/Globulin Ratio 1.4 (1.2-2.2) Amylase 87 (25-115) U/L Lipase 510 H (73-393) U/L Result Diagrams: 01/12/20 19:10 01/12/20 19:10 Clint Results Last 24 hrs: Microbiology 01/12/20 19:07 Influenza Type A Antigen Screen - Final Nasal, Unspecified NEGATIVE INFLUENZA A VIRUS AG REFERENCE RANGE: NEGATIVE Influenza Type B Antigen Screen - Final NEGATIVE INFLUENZA B VIRUS AG REFERENCE RANGE: NEGATIVE Sepsis Event Note - Evaluation Sepsis Screening Result: No Definite Risk - Focused Exam Vital Signs: Vital Signs Temp Pulse Resp BP Pulse Ox 01/12/20 20:10 93 16 131/58 L 91 L 01/12/20 19:41 38.1 C 94 16 146/45 H 95 01/12/20 18:47 36.3 C 94 16 182/106 H 93 L 01/12/20 18:40 36.3 C 94 16 182/106 H 93 L Date Exam was Performed: 01/12/20 Time Exam was Performed: 22:05 - Problem List (1) Acute cholecystitis SNOMED Code(s): 49134351 ICD Code: K81.0 - ACUTE CHOLECYSTITIS Status: Acute Priority: High Current Visit: Yes (2) Cardiovascular disease Status: Acute Priority: High Current Visit: Yes Problem List Initiated/Reviewed/Updated: Yes Orders Last 24hrs: Active Orders 24 hr Category Date Time Status Patient Status Manage Transfer [TRANSFER] Routine ADT 01/12/20 21:48 Active EKG Documentation Completion [RC] ASDIRECTED Care 01/12/20 19:04 Active CULTURE BLOOD [BC] Urgent Lab 01/12/20 20:49 Received CULTURE BLOOD [BC] Urgent Lab 01/12/20 20:55 Received Blood Culture x2 Reflex Set [OM.PC] Urgent Oth 01/12/20 20:41 Ordered Resuscitation Status Routine Resus Stat 01/12/20 21:50 Ordered EKG 12 Lead [EK] Routine Ther 01/12/20 19:04 Ordered Assessment/Plan Comment:: ASSESSMENT AND PLAN OF CARE: Abdominal pain secondary to Acute Cholecystitis 84-year-old male with epigastric pain for the last 5 hours, took Maalox which "usually helps" but this time it did not. A couple hours later he tried again and when it did not help he went into the clinic. They sent him directly over to the emergency room. He does have a coronary artery disease history and had 2 stents last July. Does not have chest pain but the epigastric pain does radiate to his shoulders. Denies shortness of breath, cough, fevers, nausea or vomiting but on his way from the clinic over to the emergency room he did develop shaking chills. His epigastric pain seems to be resolving. An EKG done on arrival to the emergency room showed a left bundle branch block with a pattern consistent with an EKG done last fall. Onset: Sudden (Pain started fairly suddenly 4-1/2 hours ago) Location: Reports: Abdomen (Epigastric radiating into the shoulders) Associated Symptoms: Reports: Other (Developed chills on his way over to the emergency room from the clinic). Denies: Cough, Nausea/Vomiting, Shortness of Breath. Pain Score (Numeric/FACES): 7 - Re-Assessments/Exams 01/12/20 19:35 EKG showed no acute changes from last fall. Because of the shaking chills temperature was taken and it was 98.1, it was repeated after 15 minutes and it was still at 98. CBC, CMP, amylase, lipase and troponin were obtained as well as influenza antigens. No further treatment was given pending tests. 01/12/20 20:13 White count and hemoglobin were normal but he did have 95% neutrophils in his differential. He did start developing a fever with a temperature near 101, and became nauseated. He was given 4 mg of sublingual Zofran. His abdominal pain continued to improve. CMP returned abnormal, bilirubin and liver enzymes were all elevated as well as mild elevation of his lipase. A screening ultrasound of the gallbladder showed numerous stones and likely thickened gallbladder wall , this will be confirmed with an ordered ultrasound. Troponin was negative, influenza antigens negative. [address] Philipp Rooney, Surgeon, will admit to Hospital for acute Cholecystitis. orders given for care. Acute Cholecystitis - 2 + year history of cholecystitis with wall thicken, hitala scan and ultrasound at [facility] 06-16-2019. 02-16-2018 abdomen -pelvis CT gallstones with wall thicken. Consult with Dr. Philipp Rooney- orders for Inpatient Care and planned surgery in am. and Mrs. Walker agree with plan of care. -NPO except for ice chips -IV fluids for hydration, IV Normal Saline 125ml/hr -IV Azactam 1 gram every 12 hours -IV Unasyn 3 gram every 6 hours -Medication for pain and nausea -Protonix 40 mg IV every 12 hours -Consult Dr. Philipp Rooney -blood cultures x2 pending -am labs CBC, BMP, Lactic acid at 0200 Cardiovascular disease - history of cardiac stent x [address] [facility] [id number] -hold baby asa, Plavix, lisinopril until after surgery -cardiac monitoring. MAINTENANCE ISSUES -DVT Prophylaxis SCD -GI prophylaxis- IV Protonix 40 mg bid -Dunn catheter not indicated -Nutrition NPO- may have ice chips til 0200 am. CODE STATUS FULL ADMISSION Admission justification - This patient will be admitted for inpatient services and is medically appropriate meeting medical necessity for inpatient admission as outlined in my documentation. I reasonably expect the patient will require inpatient services that span a period time over 2 midnights. I reasonably expect this patient to be discharged or transferred within 96 hours [facility]. DISPOSITION anticipate discharge to home with Ember after the hospital stay. PRIMARY CARE PROVIDER Dr. Waterman, [facility] SURGEON Dr. Philipp Rooney HOSPITALIST Dr. Villanueva - Mortality Measure Prognosis:: Good
[2020-01-12] MEDS ORDERED: Nitroglycerin 0.4 MG Tab.SL SL PRN (22:43)
[2020-01-12] MEDS ORDERED: Docusate Sodium 100 MG Cap PO PRN (22:43)
[2020-01-12] MEDS ORDERED: Morphine 2 MG/ML Syringe IVPUSH PRN (22:43)
[2020-01-12] MEDS ORDERED: Acetaminophen 1,000 MG in Premix Bag 1 BAG IV ONE (22:43)
[2020-01-12] MEDS: Sodium Chloride 0.9% 1,000 ML IV SCH (22:54)
[2020-01-12] MEDS: Pantoprazole 40 MG Vial IV SCH (23:12)
[2020-01-12] MEDS: Ampicillin/Sulbactam Na 3 GM in Sodium Chloride 0.9% 100 ML IV SCH (23:20)
[2020-01-13] MEDS: Ampicillin/Sulbactam Na 3 GM in Sodium Chloride 0.9% 100 ML IV SCH ×3 (04:14→23:59)
[2020-01-13] MEDS: Sodium Chloride 0.9% 1,000 ML IV SCH (08:32)
--- NOTE | 2020-01-13 09:55 | PN ---
DATE OF SERVICE: 01/13/2020 SUBJECTIVE: Ivan is an 84-year-old male with acute cholecystitis. He was admitted to the hospital yesterday. He went through the ER. He states that he has had gallbladder problems known since May, but this is the worst attack he has had. He currently is n.p.o. and will be having a laparoscopic possible open cholecystectomy case to follow today. Vital signs have been stable, afebrile. REVIEW OF SYSTEMS: Remainder of review of systems negative for any pertinent positives and negatives. OBJECTIVE: GENERAL: Ivan Walker is an 84-year-old male, alert and orientated. VITAL SIGNS: TPR at 07:23, 98.9, 63, 16, blood pressure 115/49. HEENT: Negative. NECK: Supple. HEART: Regular rate and rhythm. LUNGS: Clear. ABDOMEN: Tenderness in the right upper quadrant, otherwise negative. EXTREMITIES: Without peripheral edema. ASSESSMENT: Acute cholecystectomy. PLAN: 1. Check liver function tests now. 2. Schedule and have consent signed for laparoscopic possible open cholecystectomy, general anesthesia, TAP block, case to follow on 01/13/2020. Philipp Rooney MD. Remain n.p.o. 3. Orders to be written postoperatively. After preoperative evaluation and discussion of possible risks and possible complications, the patient wishes to proceed with surgical procedure. Tonya Bains PA-C /[id number]
[2020-01-13] MEDS ORDERED: Ampicillin/Sulbactam Na 3 GM in Sodium Chloride 0.9% 100 ML IV SCH (10:00)
[2020-01-13] MEDS: Pantoprazole 40 MG Vial IV SCH (10:36)
[2020-01-13] MEDS ORDERED: Rocuronium 50 MG/5 ML Vial ONE (10:57)
[2020-01-13] MEDS ORDERED: Succinylcholine 200 MG/10 ML MDV ONE (10:57)
[2020-01-13] MEDS ORDERED: fentaNYL 250 MCG/5 ML SDV ONE ×2 (10:57→15:40)
[2020-01-13] MEDS ORDERED: Neostigmine Methylsulfate 1 MG/ML 5 ML Syringe ONE (10:57)
[2020-01-13] MEDS ORDERED: Dexamethasone 4 MG/ML SDV ONE (10:57)
[2020-01-13] MEDS ORDERED: Ondansetron 4 MG/2 ML SDV ONE (10:57)
[2020-01-13] MEDS ORDERED: Glycopyrrolate 0.2 MG/ML 5 ML MDV ONE (10:57)
[2020-01-13] MEDS ORDERED: Propofol 200 MG/20 ML SDV ONE (10:57)
[2020-01-13] MEDS ORDERED: Ropivacaine 40 ML, dexAMETHasone 8 MG, EPINEPHrine 0.4 MG, Sodium Chloride 0.9% 37.6 ML NERVRT SCH ×4 (12:00)
[2020-01-13] MEDS ORDERED: Bupivacaine 0.5%/EPINEPHrine 1:200,000 50 ML MDV ONE (13:36)
[2020-01-13] MEDS ORDERED: Lactated Ringers 1,000 ML ONE (16:01)
[2020-01-13] MEDS ORDERED: HYDROmorphone 1 MG/ML Syringe IV PRN (17:07)
[2020-01-13] MEDS ORDERED: HYDROmorphone 0.5 MG/0.5 ML Syringe IVPUSH PRN (17:07)
[2020-01-13] MEDS ORDERED: Ondansetron 4 MG/2 ML SDV IVPUSH PRN (17:07)
[2020-01-13] MEDS ORDERED: Dextrose 5%-Lactated Ringers 1,000 ML IV SCH (17:30)
[2020-01-13] MEDS: Acetaminophen/HYDROcodone 325-5 MG Tab PO PRN (19:27)
[2020-01-13] MEDS: Docusate Sodium 100 MG Cap PO SCH (21:11)
[2020-01-13] MEDS: Simvastatin 20 MG Tab PO SCH (21:11)
[2020-01-14] MEDS ORDERED: Lidocaine 2% Jelly 10 ML Urojet MUCMEM ONE (01:54)
[2020-01-14] MEDS: Acetaminophen/HYDROcodone 325-5 MG Tab PO PRN ×4 (02:00→17:19)
[2020-01-14] MEDS: Ampicillin/Sulbactam Na 3 GM in Sodium Chloride 0.9% 100 ML IV SCH ×4 (05:04→23:20)
[2020-01-14] MEDS ORDERED: Tamsulosin 0.4 MG Cap.ER PO ONE (08:00)
[2020-01-14] MEDS: Dextrose 5%-Lactated Ringers 1,000 ML IV SCH ×2 (08:11→23:21)
[2020-01-14] MEDS: Clopidogrel 75 MG Tab PO SCH (09:28)
[2020-01-14] MEDS: Aspirin 81 MG Tab.EC PO SCH (09:28)
[2020-01-14] MEDS: Lisinopril 20 MG Tab PO SCH (09:28)
[2020-01-14] MEDS: Lactobacillus Rhamnosus GG (Probiotic) Cap PO SCH ×2 (09:28→20:33)
[2020-01-14] MEDS: Docusate Sodium 100 MG Cap PO SCH ×2 (09:28→20:33)
[2020-01-14] MEDS ORDERED: Pantoprazole 40 MG Vial IV SCH (11:00)
--- NOTE | 2020-01-14 11:24 | PN ---
DATE OF SERVICE: 01/14/2020 SUBJECTIVE: Ivan is postoperative day #1. He states his pain is controlled. Vital signs have been stable. He has been up ambulating. Oral intake 940. Urine output 475. RENARD drain put out 40 mL of a light red drainage. He was unable to urinate last evening, so the Dunn was put back in and he had 350 return. REVIEW OF SYSTEMS: Remainder of review of systems negative for any pertinent positives and negatives. OBJECTIVE: GENERAL: Ivan Walker is a pleasant 84-year-old male. Alert, orientated. VITAL SIGNS: TPR 97.2, 62, 16, blood pressure 149/52. HEENT: Negative. NECK: Supple. HEART: Regular rate and rhythm. LUNGS: Clear. ABDOMEN: Dressing dry and intact. Abdominal binder is on. RENARD drain as above. EXTREMITIES: SCDs and there is no peripheral edema. ASSESSMENT: Diagnostic laparoscopy with: 1. Cholecystectomy. 2. Drainage of pericholecystic abscess for acute cholecystitis and cholelithiasis. Date of surgery: 01/13/2020. Surgeon: Philipp Rooney MD. 3. Blood cultures revealed positive gram-negative rods. PLAN: 1. Flomax 0.4 mg now. 2. Flomax 0.4 mg at bedtime daily scheduled. 3. Remove upper abdominal packing, leave packing out, dress with 4x4s b.i.d. 4. Decrease IV to 80 mL/h. 5. Good pulmonary toilet. 6. We will evaluate p.r.n. or in a.m. Tonya Bains PA-C /[id number]
--- NOTE | 2020-01-14 12:12 | PCM.PN ---
- General Info Date of Service: 01/14/20 Subjective Update: Mr. Walker is an 84-year-old gentleman who was admitted through the emergency department with acute cholecystitis. I am asked to see him in follow-up at this time by Dr. Rooney because of positive blood cultures as well as wound culture. Both blood cultures as well as wound culture growing out a gram- negative deondre, final ID and sensitivities are pending. He has been stable during the initial postoperative period and has not had significant temperature elevation over the last 24 hours. Surgery was performed yesterday with cholecystectomy. - Review of Systems General: Reports: Weakness. Denies: Fever, Chills Pulmonary: Reports: No Symptoms Cardiovascular: Reports: No Symptoms Gastrointestinal: Reports: Abdominal Pain. Denies: Diarrhea, Difficulty Swallowing, Nausea, Vomiting - Patient Data Vitals - Most Recent: Last Vital Signs Temp 96.6 F L 01/14/20 10:44 Pulse 58 L 01/14/20 10:44 Resp 16 01/14/20 10:44 BP 130/50 L 01/14/20 10:44 Pulse Ox 97 01/14/20 10:44 Weight - Most Recent: 183 lb 3.266 oz I&O - Last 24 Hours: Intake & Output 01/13/20 01/14/20 01/14/20 22:59 06:59 14:59 Intake Total 700 2801 700 Output Total 20 595 Balance 680 2206 700 Lab Results Last 24 Hours: Laboratory Results - last 24 hr 01/14/20 01/14/20 Range/Units 04:03 04:03 WBC 9.6 (4.5-11.0) K/uL RBC 4.15 L (4.30-5.90) M/uL Hgb 12.2 (12.0-15.0) g/dL Hct 37.3 L (40.0-54.0) % MCV 90 (80-98) fL MCH 29 (27-31) pg MCHC 33 (32-36) % Plt Count 151 (150-400) K/uL Neut % (Auto) 94 H (36-66) % Lymph % (Auto) 4 L (24-44) % [place] % (Auto) 3 (2-6) % Eos % (Auto) 0 L (2-4) % Baso % (Auto) 0 (0-1) % Sodium 140 (140-148) mmol/L Potassium 4.1 (3.6-5.2) mmol/L Chloride 107 (100-108) mmol/L Carbon Dioxide 24 (21-32) mmol/L Anion Gap 8.6 (5.0-14.0) mmol/L BUN 21 H (7-18) mg/dL Creatinine 1.0 (0.8-1.3) mg/dL Est Cr Clr Drug Dosing 57.93 mL/min Estimated GFR (MDRD) > 60 (>60) Glucose 182 H (74-106) mg/dL Calcium 7.9 L (8.5-10.1) mg/dL Phosphorus 3.1 (2.5-4.9) mg/dL Magnesium 2.1 (1.8-2.4) mg/dL Total Bilirubin 1.4 H (0.2-1.0) mg/dL AST 415 H (15-37) U/L ALT 716 H (12-78) U/L Alkaline Phosphatase 217 H (46-116) U/L NT-Pro-B Natriuret Pep 1771 H (5-450) pg/mL Total Protein 5.6 L (6.4-8.2) g/dL Albumin 2.8 L (3.4-5.0) g/dL Globulin 2.8 (2.3-3.5) g/dL Albumin/Globulin Ratio 1.0 L (1.2-2.2) Clint Results Last 24 Hours: Microbiology 01/12/20 20:49 Aerobic Blood Culture - Preliminary Blood - Arm, Left Anaerobic Blood Culture - Preliminary 01/13/20 15:35 Gram Stain - Final Gallbladder Fluid - Bile Wound Culture - Preliminary Anaerobic Culture - Preliminary NO GROWTH AFTER 1 DAY 01/12/20 20:55 Aerobic Blood Culture - Preliminary Blood - Arm, Right NO GROWTH AFTER 1 DAY Anaerobic Blood Culture - Preliminary Med Orders - Current: Current Medications Hydrocodone Bitart/Acetaminophen ([place] 325-5 Mg) 1 tab PO Q3H PRN PRN Reason: PAIN Last Admin: 01/14/20 08:12 Dose: 1 tab Aspirin (Halfprin) 81 mg PO DAILY [facility] Last Admin: 01/14/20 09:28 Dose: 81 mg Clopidogrel Bisulfate (Plavix) 75 mg PO DAILY [facility] Last Admin: 01/14/20 09:28 Dose: 75 mg Docusate Sodium (Colace) 100 mg PO BID [facility] Last Admin: 01/14/20 09:28 Dose: 100 mg Hydromorphone HCl (Dilaudid) 0.5 mg IVPUSH Q2H PRN PRN Reason: MODERATE PAIN Hydromorphone HCl (Dilaudid) 1 mg IV Q2H PRN PRN Reason: SEVERE PAIN Ampicillin Sodium/Sulbactam (Sodium 3 gm/ Sodium Chloride) 100 mls @ 200 mls/ hr IV Q6H [facility] Last Admin: 01/14/20 05:04 Dose: 200 mls/hr Aztreonam 1 gm/ Sodium (Chloride) 50 mls @ 100 mls/hr IV Q8H [facility] Last Admin: 01/14/20 04:30 Dose: 100 mls/hr Dextrose/Lactated Ringer's (Dextrose 5%-Lactated Ringers) 1,000 mls @ 80 mls/ hr IV ASDIRECTED [facility] Last Admin: 01/14/20 08:11 Dose: 80 mls/hr Lactobacillus Rhamnosus (Culturelle) 1 cap PO BID [facility] Last Admin: 01/14/20 09:28 Dose: 1 cap Lisinopril (Prinivil) 40 mg PO DAILY [facility] Last Admin: 01/14/20 09:28 Dose: 40 mg Nitroglycerin (Nitrostat) 0.4 mg SL ASDIRECTED PRN PRN Reason: Chest Pain Ondansetron HCl (Zofran) 4 mg IVPUSH Q4H PRN PRN Reason: Nausea/Vomiting Pantoprazole Sodium (Protonix) 40 mg PO ACBREAKFAST [facility] Simvastatin (Zocor) 20 mg PO BEDTIME [facility] Last Admin: 01/13/20 21:11 Dose: 20 mg Tamsulosin HCl (Flomax) 0.4 mg PO BEDTIME [facility] Discontinued Medications Bupivacaine HCl/Epinephrine Bitart (Marcaine 0.5%/Epinephrine 1:200,000) Confirm Administered Dose 50 ml .ROUTE .STK-MED ONE Stop: 01/13/20 13:37 Last Admin: 01/13/20 15:39 Dose: 20 ml Ropivacaine 40 ml/Dexamethasone 8 mg/Epinephrine HCl 0.4 mg/ Sodium Chloride 37.6 ml 0 ml NERVRT ASDIRECTED [facility] Last Admin: 01/13/20 15:26 Dose: 80 syringe Dexamethasone (Dexamethasone) Confirm Administered Dose 4 mg .ROUTE .STK-MED ONE Stop: 01/13/20 10:58 Docusate Sodium (Colace) 100 mg PO BID PRN PRN Reason: Constipation Fentanyl (Sublimaze) Confirm Administered Dose 250 mcg .ROUTE .STK-MED ONE Stop: 01/13/20 10:58 Fentanyl (Sublimaze) Confirm Administered Dose 250 mcg .ROUTE .STK-MED ONE Stop: 01/13/20 15:41 Glycopyrrolate (Robinul) Confirm Administered Dose 1 mg .ROUTE .STK-MED ONE Stop: 01/13/20 10:58 Acetaminophen 1,000 mg/ Premix 100 mls @ 400 mls/hr IV NOW ONE Stop: 01/12/20 22:57 Last Admin: 01/12/20 22:54 Dose: 400 mls/hr Ampicillin Sodium/Sulbactam (Sodium 3 gm/ Sodium Chloride) 100 mls @ 200 mls/ hr IV Q6H [facility] Last Admin: 01/13/20 04:14 Dose: 200 mls/hr Aztreonam 1 gm/ Sodium (Chloride) 50 mls @ 100 mls/hr IV Q12H [facility] Last Admin: 01/13/20 12:28 Dose: 100 mls/hr Sodium Chloride (Normal Saline) 1,000 mls @ 125 mls/hr IV ASDIRECTED [facility] Last Admin: 01/13/20 08:32 Dose: 125 mls/hr Ampicillin Sodium/Sulbactam (Sodium 3 gm/ Sodium Chloride) 100 mls @ 200 mls/ hr IV Q6H [facility] Last Admin: 01/13/20 10:29 Dose: 200 mls/hr Lactated Ringer's (Ringers, Lactated) Confirm Administered Dose 1,000 mls @ as directed .ROUTE .STK-MED ONE Stop: 01/13/20 16:02 Dextrose/Lactated Ringer's (Dextrose 5%-Lactated Ringers) 1,000 mls @ 125 mls/ hr IV ASDIRECTED [facility] Last Admin: 01/13/20 23:58 Dose: 125 mls/hr Lidocaine HCl (Xylocaine 2% Jelly) 10 ml MUCMEM ONETIME ONE Stop: 01/14/20 01:55 Last Admin: 01/14/20 02:04 Dose: 10 ml Morphine Sulfate (Morphine) 2 mg IVPUSH Q2H PRN PRN Reason: Pain (severe 7-10) Neostigmine Methylsulfate (Neostigmine) Confirm Administered Dose 5 mg .ROUTE .STK-MED ONE Stop: 01/13/20 10:58 Ondansetron HCl (Zofran Odt) 4 mg PO ONETIME ONE Stop: 01/12/20 19:39 Last Admin: 01/12/20 19:44 Dose: 4 mg Ondansetron HCl (Zofran) Confirm Administered Dose 4 mg .ROUTE .STK-MED ONE Stop: 01/13/20 10:58 Pantoprazole Sodium (Protonix Iv) 40 mg IV Q12H [facility] Last Admin: 01/13/20 10:36 Dose: 40 mg Pantoprazole Sodium (Protonix Iv) 40 mg IV Q24H [facility] Pantoprazole Sodium (Protonix) 40 mg PO ACBREAKFAST [facility] Propofol (Diprivan 20 Ml) Confirm Administered Dose 200 mg .ROUTE .STK-MED ONE Stop: 01/13/20 10:58 Rocuronium [place] (Zemuron) Confirm Administered Dose 50 mg .ROUTE .STK-MED ONE Stop: 01/13/20 10:58 Succinylcholine Chloride (Quelicin) Confirm Administered Dose 200 mg .ROUTE .STK -MED ONE Stop: 01/13/20 10:58 Tamsulosin HCl (Flomax) 0.4 mg PO ONETIME ONE Stop: 01/14/20 08:01 Last Admin: 01/14/20 09:28 Dose: 0.4 mg - Exam General: Alert, Oriented, Cooperative, Mild Distress Lungs: Clear to Auscultation, Normal Respiratory Effort Cardiovascular: Regular Rate, Regular Rhythm, No Murmurs GI/Abdominal Exam: Soft, No Organomegaly, Tender. No: Distended, Guarding, Rigid, Rebound Extremities: Non-Tender, No Pedal Edema Sepsis Event Note - Evaluation Sepsis Screening Result: No Definite Risk - Focused Exam Vital Signs: Vital Signs Temp Pulse Resp BP BP Pulse Ox 01/14/20 10:44 96.6 F L 58 L 16 130/50 L 97 01/14/20 09:28 132/47 L 01/14/20 07:00 97.2 F 62 16 149/52 H 92 L Date Exam was Performed: 01/14/20 Time Exam was Performed: 12:07 - Problem List Review Problem List Initiated/Reviewed/Updated: Yes - My Orders Last 24 Hours: My Active Orders 01/14/20 09:00 Lactobacillus Rhamnosus GG [Culturelle] 1 cap PO BID 01/14/20 10:09 Consult to Physical Therapy [PT Evaluation and Treatment] [CONS] Routine - Plan Plan:: ASSESSMENT AND PLAN OF CARE Acute Cholecystitis - 2 + year history of cholecystitis with wall thicken, hida scan and ultrasound at [facility] 06-16-2019. Status post cholecystectomy yesterday. Wound culture and blood cultures are growing out a gram-negative deondre , final ID and sensitivities are pending -IV Azactam 1 gram every 12 hours -IV Unasyn 3 gram every 6 hours -Continue current antibiotic therapy pending culture results -To new IV antibiotic therapy for 2 more days, longer if he has recurrent temperature elevation -Patient to oral antibiotics and plan for a total course of 10 days Cardiovascular disease - history of cardiac stent x 2 at [facility] [id number] -cardiac monitoring. MAINTENANCE ISSUES -DVT Prophylaxis SCD -GI prophylaxis- IV Protonix 40 mg bid -Dunn catheter not indicated -Nutrition NPO- may have ice chips til 0200 am. CODE STATUS FULL ADMISSION Admission justification - This patient will be admitted for inpatient services and is medically appropriate meeting medical necessity for inpatient admission as outlined in my documentation. I reasonably expect the patient will require inpatient services that span a period time over 2 midnights. I reasonably expect this patient to be discharged or transferred within 96 hours [facility]. DISPOSITION anticipate discharge to home with Ember after the hospital stay. PRIMARY CARE PROVIDER Dr. Waterman, [facility] SURGEON Dr. Philipp Rooney HOSPITALIST Dr. Villanueva
[2020-01-14] MEDS: Pantoprazole 40 MG Tab.CR PO SCH (12:57)
[2020-01-14] MEDS: FELODIPINE 10 MG PO SCH (13:08)
[2020-01-14] MEDS: Tamsulosin 0.4 MG Cap.ER PO SCH (20:33)
[2020-01-14] MEDS: Simvastatin 20 MG Tab PO SCH (20:33)
[2020-01-15] MEDS: Acetaminophen/HYDROcodone 325-5 MG Tab PO PRN ×4 (03:03→21:49)
[2020-01-15] MEDS: Ampicillin/Sulbactam Na 3 GM in Sodium Chloride 0.9% 100 ML IV SCH ×4 (06:23→23:24)
[2020-01-15] MEDS: Pantoprazole 40 MG Tab.CR PO SCH (07:29)
[2020-01-15] MEDS ORDERED: Tamsulosin 0.4 MG Cap.ER PO ONE (09:00)
[2020-01-15] MEDS: Lisinopril 20 MG Tab PO SCH (09:24)
[2020-01-15] MEDS: Docusate Sodium 100 MG Cap PO SCH ×2 (09:24→21:41)
[2020-01-15] MEDS: Clopidogrel 75 MG Tab PO SCH (09:24)
[2020-01-15] MEDS: Lactobacillus Rhamnosus GG (Probiotic) Cap PO SCH ×2 (09:24→21:40)
[2020-01-15] MEDS: Aspirin 81 MG Tab.EC PO SCH (09:24)
[2020-01-15] MEDS: FELODIPINE 10 MG PO SCH (09:30)
--- NOTE | 2020-01-15 11:10 | PCM.PN ---
- General Info Date of Service: 01/15/20 Subjective Update: Mr. Walker has been stable since yesterday. Signs have been good and he has remained afebrile. Continues to require supplemental oxygen, likely related to hypoventilation from recent surgery with ongoing incisional pain. Functional Status: Reports: Tolerating Diet, Ambulating, Urinating - Review of Systems General: Denies: Fever, Chills Pulmonary: Reports: No Symptoms Cardiovascular: Reports: No Symptoms Gastrointestinal: Reports: Abdominal Pain. Denies: Diarrhea, Difficulty Swallowing, Nausea, Vomiting - Patient Data Vitals - Most Recent: Last Vital Signs Temp 97.8 F 01/15/20 07:30 Pulse 64 01/15/20 07:30 Resp 18 01/15/20 07:30 BP 137/63 01/15/20 09:24 Pulse Ox 91 L 01/15/20 08:00 Weight - Most Recent: 183 lb 3.266 oz I&O - Last 24 Hours: Intake & Output 01/14/20 01/15/20 01/15/20 22:59 06:59 14:59 Intake Total 1243 1139 Output Total 1775 770 230 Balance -532 369 -230 Lab Results Last 24 Hours: Laboratory Results - last 24 hr 01/15/20 01/15/20 Range/Units 04:22 04:22 WBC 11.0 (4.5-11.0) K/uL RBC 4.10 L (4.30-5.90) M/uL Hgb 11.6 L (12.0-15.0) g/dL Hct 37.1 L (40.0-54.0) % MCV 91 (80-98) fL MCH 28 (27-31) pg MCHC 31 L (32-36) % Plt Count 167 (150-400) K/uL Sodium 145 (140-148) mmol/L Potassium 4.2 (3.6-5.2) mmol/L Chloride 110 H (100-108) mmol/L Carbon Dioxide 28 (21-32) mmol/L Anion Gap 11.2 (5.0-14.0) mmol/L BUN 16 (7-18) mg/dL Creatinine 0.9 (0.8-1.3) mg/dL Est Cr Clr Drug Dosing 64.37 mL/min Estimated GFR (MDRD) > 60 (>60) Glucose 130 H (74-106) mg/dL Calcium 7.6 L (8.5-10.1) mg/dL Phosphorus 2.0 L (2.5-4.9) mg/dL Magnesium 1.9 (1.8-2.4) mg/dL Total Bilirubin 0.5 D (0.2-1.0) mg/dL AST 126 H (15-37) U/L ALT 426 H (12-78) U/L Alkaline Phosphatase 184 H (46-116) U/L NT-Pro-B Natriuret Pep 1696 H (5-450) pg/mL Total Protein 5.2 L (6.4-8.2) g/dL Albumin 2.4 L (3.4-5.0) g/dL Globulin 2.8 (2.3-3.5) g/dL Albumin/Globulin Ratio 0.9 L (1.2-2.2) Clint Results Last 24 Hours: Microbiology 01/13/20 15:35 Gram Stain - Final Gallbladder Fluid - Bile Wound Culture - Final Escherichia Coli Anaerobic Culture - Preliminary NO GROWTH AFTER 2 DAYS 01/12/20 20:55 Aerobic Blood Culture - Preliminary Blood - Arm, Right NO GROWTH AFTER 2 DAYS Anaerobic Blood Culture - Final Escherichia Coli 01/12/20 20:49 Aerobic Blood Culture - Final Blood - Arm, Left Escherichia Coli Anaerobic Blood Culture - Final Escherichia Coli Med Orders - Current: Current Medications Hydrocodone Bitart/Acetaminophen ([place] 325-5 Mg) 1 tab PO Q3H PRN PRN Reason: PAIN Last Admin: 01/15/20 07:31 Dose: 1 tab Aspirin (Halfprin) 81 mg PO DAILY [facility] Last Admin: 01/15/20 09:24 Dose: 81 mg Ciprofloxacin (Ciprofloxacin Hcl) 500 mg PO BID [facility] Clopidogrel Bisulfate (Plavix) 75 mg PO DAILY [facility] Last Admin: 01/15/20 09:24 Dose: 75 mg Docusate Sodium (Colace) 100 mg PO BID [facility] Last Admin: 01/15/20 09:24 Dose: 100 mg Hydromorphone HCl (Dilaudid) 0.5 mg IVPUSH Q2H PRN PRN Reason: MODERATE PAIN Hydromorphone HCl (Dilaudid) 1 mg IV Q2H PRN PRN Reason: SEVERE PAIN Ampicillin Sodium/Sulbactam (Sodium 3 gm/ Sodium Chloride) 100 mls @ 200 mls/ hr IV Q6H [facility] Stop: 01/16/20 08:00 Last Admin: 01/15/20 06:23 Dose: 200 mls/hr Aztreonam 1 gm/ Sodium (Chloride) 50 mls @ 100 mls/hr IV Q8H [facility] Stop: 01/16/20 08:00 Last Admin: 01/15/20 03:02 Dose: 100 mls/hr Dextrose/Lactated Ringer's (Dextrose 5%-Lactated Ringers) 1,000 mls @ 80 mls/ hr IV ASDIRECTED [facility] Last Admin: 01/14/20 23:21 Dose: 80 mls/hr Lactobacillus Rhamnosus (Culturelle) 1 cap PO BID [facility] Last Admin: 01/15/20 09:24 Dose: 1 cap Lisinopril (Prinivil) 40 mg PO DAILY [facility] Last Admin: 01/15/20 09:24 Dose: 40 mg Nitroglycerin (Nitrostat) 0.4 mg SL ASDIRECTED PRN PRN Reason: Chest Pain Ondansetron HCl (Zofran) 4 mg IVPUSH Q4H PRN PRN Reason: Nausea/Vomiting Pantoprazole Sodium (Protonix) 40 mg PO ACBREAKFAST [facility] Last Admin: 01/15/20 07:29 Dose: 40 mg Felodipine Er 10mg (Tab (Ptom)) 0 each PO DAILY [facility] Last Admin: 01/14/20 13:08 Dose: 1 each Simvastatin (Zocor) 20 mg PO BEDTIME [facility] Last Admin: 01/14/20 20:33 Dose: 20 mg Tamsulosin HCl (Flomax) 0.4 mg PO BEDTIME [facility] Last Admin: 01/14/20 20:33 Dose: 0.4 mg Discontinued Medications Bupivacaine HCl/Epinephrine Bitart (Marcaine 0.5%/Epinephrine 1:200,000) Confirm Administered Dose 50 ml .ROUTE .STK-MED ONE Stop: 01/13/20 13:37 Last Admin: 01/13/20 15:39 Dose: 20 ml Ropivacaine 40 ml/Dexamethasone 8 mg/Epinephrine HCl 0.4 mg/ Sodium Chloride 37.6 ml 0 ml NERVRT ASDIRECTED [facility] Last Admin: 01/13/20 15:26 Dose: 80 syringe Dexamethasone (Dexamethasone) Confirm Administered Dose 4 mg .ROUTE .STK-MED ONE Stop: 01/13/20 10:58 Docusate Sodium (Colace) 100 mg PO BID PRN PRN Reason: Constipation Fentanyl (Sublimaze) Confirm Administered Dose 250 mcg .ROUTE .STK-MED ONE Stop: 01/13/20 10:58 Fentanyl (Sublimaze) Confirm Administered Dose 250 mcg .ROUTE .STK-MED ONE Stop: 01/13/20 15:41 Glycopyrrolate (Robinul) Confirm Administered Dose 1 mg .ROUTE .STK-MED ONE Stop: 01/13/20 10:58 Acetaminophen 1,000 mg/ Premix 100 mls @ 400 mls/hr IV NOW [facility] Stop: 01/12/20 22:57 Last Admin: 01/12/20 22:54 Dose: 400 mls/hr Ampicillin Sodium/Sulbactam (Sodium 3 gm/ Sodium Chloride) 100 mls @ 200 mls/ hr IV Q6H [facility] Last Admin: 01/13/20 04:14 Dose: 200 mls/hr Aztreonam 1 gm/ Sodium (Chloride) 50 mls @ 100 mls/hr IV Q12H [facility] Last Admin: 01/13/20 12:28 Dose: 100 mls/hr Sodium Chloride (Normal Saline) 1,000 mls @ 125 mls/hr IV ASDIRECTED [facility] Last Admin: 01/13/20 08:32 Dose: 125 mls/hr Ampicillin Sodium/Sulbactam (Sodium 3 gm/ Sodium Chloride) 100 mls @ 200 mls/ hr IV Q6H [facility] Last Admin: 01/13/20 10:29 Dose: 200 mls/hr Lactated Ringer's (Ringers, Lactated) Confirm Administered Dose 1,000 mls @ as directed .ROUTE .STK-MED ONE Stop: 01/13/20 16:02 Dextrose/Lactated Ringer's (Dextrose 5%-Lactated Ringers) 1,000 mls @ 125 mls/ hr IV ASDIRECTED [facility] Last Admin: 01/13/20 23:58 Dose: 125 mls/hr Lidocaine HCl (Xylocaine 2% Jelly) 10 ml MUCMEM ONETIME [facility] Stop: 01/14/20 01:55 Last Admin: 01/14/20 02:04 Dose: 10 ml Morphine Sulfate (Morphine) 2 mg IVPUSH Q2H PRN PRN Reason: Pain (severe 7-10) Neostigmine Methylsulfate (Neostigmine) Confirm Administered Dose 5 mg .ROUTE .STK-MED ONE Stop: 01/13/20 10:58 Ondansetron HCl (Zofran Odt) 4 mg PO ONETIME [facility] Stop: 01/12/20 19:39 Last Admin: 01/12/20 19:44 Dose: 4 mg Ondansetron HCl (Zofran) Confirm Administered Dose 4 mg .ROUTE .STK-MED ONE Stop: 01/13/20 10:58 Pantoprazole Sodium (Protonix Iv) 40 mg IV Q12H [facility] Last Admin: 01/13/20 10:36 Dose: 40 mg Pantoprazole Sodium (Protonix Iv) 40 mg IV Q24H [facility] Pantoprazole Sodium (Protonix) 40 mg PO ACBREAKFAST [facility] Propofol (Diprivan 20 Ml) Confirm Administered Dose 200 mg .ROUTE .STK-MED ONE Stop: 01/13/20 10:58 Rocuronium [place] (Zemuron) Confirm Administered Dose 50 mg .ROUTE .STK-MED ONE Stop: 01/13/20 10:58 Succinylcholine Chloride (Quelicin) Confirm Administered Dose 200 mg .ROUTE .STK -MED ONE Stop: 01/13/20 10:58 Tamsulosin HCl (Flomax) 0.4 mg PO ONETIME ONE Stop: 01/14/20 08:01 Last Admin: 01/14/20 09:28 Dose: 0.4 mg Tamsulosin HCl (Flomax) 0.4 mg PO ONETIME [facility] Stop: 01/15/20 09:01 Last Admin: 01/15/20 09:24 Dose: 0.4 mg - Exam Quality Assessment: DVT Prophylaxis General: Alert, Oriented, Cooperative, Mild Distress Lungs: Clear to Auscultation, Normal Respiratory Effort, Decreased Breath Sounds Cardiovascular: Regular Rate, Regular Rhythm, No Murmurs GI/Abdominal Exam: Soft, Non-Tender, No Organomegaly, No Distention Extremities: Non-Tender, No Pedal Edema Sepsis Event Note - Evaluation Sepsis Screening Result: No Definite Risk - Focused Exam Vital Signs: Vital Signs Temp Pulse Resp BP BP Pulse Ox Pulse Ox 01/15/20 09:24 137/63 01/15/20 08:00 91 L 01/15/20 07:30 97.8 F 64 18 142/60 H 90 L 01/15/20 02:54 98.0 F 58 L 18 133/52 L 90 L 01/14/20 23:17 97.4 F 65 16 126/52 L 90 L 01/14/20 23:15 90 L Date Exam was Performed: 01/15/20 Time Exam was Performed: 11:06 - Problem List Review Problem List Initiated/Reviewed/Updated: Yes - My Orders Last 24 Hours: My Active Orders 01/14/20 10:09 Consult to Physical Therapy [PT Evaluation and Treatment] [CONS] Routine 01/16/20 09:00 Ciprofloxacin [Ciprofloxacin HCl] 500 mg PO BID - Plan Plan:: ASSESSMENT AND PLAN OF CARE Acute Cholecystitis with gram-negative bacteremia-wound and blood cultures growing pansensitive E. coli -IV Azactam 1 gram every 12 hours -IV Unasyn 3 gram every 6 hours -Continue IV antibiotics tomorrow as long as he remains afebrile -Ciprofloxacin 500 mg p.o. twice daily for an additional 6 days Cardiovascular disease - history of cardiac stent x 2 at [facility] [id number] -cardiac monitoring. MAINTENANCE ISSUES -DVT Prophylaxis SCD -GI prophylaxis- IV Protonix 40 mg bid -Dunn catheter not indicated -Nutrition NPO- may have ice chips til 0200 am. CODE STATUS FULL ADMISSION Admission justification - This patient will be admitted for inpatient services and is medically appropriate meeting medical necessity for inpatient admission as outlined in my documentation. I reasonably expect the patient will require inpatient services that span a period time over 2 midnights. I reasonably expect this patient to be discharged or transferred within 96 hours [facility]. DISPOSITION anticipate discharge to home with Ember after the hospital stay. PRIMARY CARE PROVIDER Dr. Waterman, [facility] SURGEON Dr. Philipp Rooney HOSPITALIST Dr. Villanueva
[2020-01-15] MEDS ORDERED: Pantoprazole 40 MG Tab.CR PO SCH (11:30)
[2020-01-15] MEDS: Simvastatin 20 MG Tab PO SCH (21:40)
[2020-01-15] MEDS: Tamsulosin 0.4 MG Cap.ER PO SCH (21:40)
--- NOTE | 2020-01-15 22:39 | PN ---
DATE OF SERVICE: 01/15/2020 The patient has been afebrile, stable vital signs. No major problems were noted on rounds. His bilirubin now has normalized at 0.5. If the RENARD drain is clear we will remove that today. His blood cultures are growing E. coli which is sensitive to everything on that panel. So we will continue with the Unasyn and Azactam. He will be likely be able to be discharged home on Levaquin starting on Friday. Philipp Rooney MD /[id number]
[2020-01-16] MEDS: Acetaminophen/HYDROcodone 325-5 MG Tab PO PRN (03:04)
[2020-01-16] MEDS: Ampicillin/Sulbactam Na 3 GM in Sodium Chloride 0.9% 100 ML IV SCH (05:26)
[2020-01-16] MEDS ORDERED: Ciprofloxacin 500 MG Tab PO SCH ×2 (07:00→09:00)
[2020-01-16] MEDS: Pantoprazole 40 MG Tab.CR PO SCH (07:07)
[2020-01-16 07:09] VITALS: PULSE 55
[2020-01-16] MEDS: Lactobacillus Rhamnosus GG (Probiotic) Cap PO SCH (10:10)
[2020-01-16] MEDS: Lisinopril 20 MG Tab PO SCH (10:10)
[2020-01-16] MEDS: Aspirin 81 MG Tab.EC PO SCH (10:10)
[2020-01-16] MEDS: Docusate Sodium 100 MG Cap PO SCH (10:10)
[2020-01-16] MEDS: Clopidogrel 75 MG Tab PO SCH (10:10)
[2020-01-16] MEDS: FELODIPINE 10 MG PO SCH (10:14)
[2020-01-16 10:18] VITALS: BP 154/50
--- NOTE | 2020-01-17 12:32 | OR ---
DATE OF PROCEDURE: 01/13/2020 SURGEON: Philipp Rooney MD PREOPERATIVE DIAGNOSIS: Acute cholecystitis. POSTOPERATIVE DIAGNOSES: 1. Acute cholecystitis and cholelithiasis. 2. Pericholecystic abscess. OPERATIVE PROCEDURE: Diagnostic laparoscopy with: 1. Cholecystectomy (00712). 2. Drainage of pericholecystic abscess (35537). ANESTHESIA: General. LIGHT RAIL SIGNAL TECHNICIAN: Tonya Bains PA-C. INDICATIONS FOR PROCEDURE: This is an 84-year-old male presenting with a picture of sepsis including positive blood cultures on blood drawn shortly after admission. He is known to have cholelithiasis and presents with several episodes of biliary colic over the last several months, now presenting with a picture of acute cholecystitis. After initial stabilization and antibiotic administration, he is to undergo a cholecystectomy. Potential risks of the procedure including bleeding, infection, injury to underlying viscera, as well as the possibility of cardiopulmonary, septic, or hemorrhagic complications leading to were discussed, and the patient wishes to proceed. DETAILS OF PROCEDURE: The patient was taken to the operating room and placed in a supine position. After general endotracheal anesthesia was induced, the abdomen was prepped and draped. A transverse infraumbilical incision was made, the Veress needle inserted, and the peritoneal cavity inflated to 15 mmHg with CO2. A 12 mm trocar was then placed through a subumbilical incision and then final trocars placed in the right subcostal area and a 12 mm trocar placed in the epigastric region. As expected, the patient was noted to have acute cholecystitis with gallbladder being markedly edematous and schwartz in appearance. As one elevated the gallbladder, purulence was noted behind the gallbladder consistent with pericholecystic abscess. Cultures of this were obtained with the Gram stain showing gram-negative rods consistent with the patient's blood cultures which had been already positive for the gram-negative rods as well. The gallbladder dissection began at the gallbladder neck and then continued around the gallbladder neck and cystic duct junction. Once that area was well delineated as was the adjacent cystic artery, the gallbladder and cystic duct junction was initially divided with TERRI field load as this was quite friable and appeared to be prone to have the clips tear or fall off the point of closure of the cystic duct. The cystic artery was then clipped 3 times proximally and once distally and divided. The gallbladder was then dissected off the gallbladder bed using Harmonic scalpel and delivered through the epigastric trocar site which needed to be enlarged somewhat to allow removal of the gallbladder and stones within it. The area of dissection was then inspected. No bleeding or other problems were noted. A Jorge-Wagner drain was taken out through the right lateral trocar site and positioned in the area of the gallbladder bed, and trocars were then removed. The fascia at the 12 mm site was closed with 0 Vicryl stitch, the skin at the epigastric site was left open and packed with iodoform gauze, and the umbilical site was closed with 4-0 Vicryl skin stitch. Dressing was applied. The patient was taken to the recovery room in satisfactory condition. There were no evident complications. Physician assistant executive housekeeper, Tonya Bains, played an essential role in assisting in this case, helping to position the patient, retract structures as needed, as well as suturing and cutting sutures as indicated. Her presence improved patient safety and decreased operative time. Philipp Rooney MD /[id number]
--- NOTE | 2020-01-17 13:59 | DISCH ---
FINAL DIAGNOSES: 1. Acute cholecystitis associated with pericholecystic abscess. 2. Sepsis with positive blood cultures for Escherichia coli. SECONDARY DIAGNOSES: 1. History of hypertension. 2. History of hyperlipidemia. 3. History of coronary artery disease, status post stent placement. OPERATIVE PROCEDURES: Done on 01/13/2020, diagnostic laparoscopy with, 1. Cholecystectomy. 2. Drainage of pericholecystic abscess. SUMMARY: This is an 84-year-old presenting with worsening abdominal pain and known history of biliary colic and cholelithiasis. He was admitted with a picture of acute cholecystitis and did have some shaking chills and had immediately positive blood cultures positive for E coli. Subsequently, the patient after receiving some IV antibiotics, underwent a laparoscopic cholecystectomy and drainage of pericholecystic abscess. Of note, the pericholecystic abscess grew out the same E coli that he had positive cultures for. Postoperatively, the patient has done well. He is presently tolerating regular diet and not moved his bowels as of yet. We will start him on some milk of magnesia. The patient received 4 days of IV antibiotics and will receive additional 6 days of oral Cipro for treatment of the positive blood cultures. His epigastric incision is open and that will be addressed until it is sealed over. The plan will be to have the patient follow up with Dr. Rooney at [facility] on 01/26/2020. He will continue his home medications plus Cipro 500 mg p.o. b.i.d. x6 days and [place] 5/325 one tablet q.4 hours p.r.n. pain, #30.
== END 2020-01-16 10:45 | disposition home or self-care (01) | DRG 854 ==
LOC: JP.ED 18:27 → JP.MS 21:48
PROVIDERS: ADMIT Hospitalist; ATTEND Surgery
PROC: 0FT44ZZ Resection of Gallbladder, Percutaneous Endoscopic Approach (ICD-10-PCS; principal; 2020-01-13)
PROC: 0W9G4ZZ Drainage of Peritoneal Cavity, Percutaneous Endoscopic Approach (ICD-10-PCS; 2020-01-13)
DX: K81.9 Cholecystitis, unspecified (principal); E78.00 Pure hypercholesterolemia, unspecified; A41.51 Sepsis due to Escherichia coli [E. coli]; K80.00 Calculus of gallbladder with acute cholecystitis without obstruction; I10 Essential (primary) hypertension; Z95.5 Presence of coronary angioplasty implant and graft; Z98.49 Cataract extraction status, unspecified eye; Z88.2 Allergy status to sulfonamides; Z88.8 Allergy status to other drugs, medicaments and biological substances; Z79.82 Long term (current) use of aspirin; Z79.899 Other long term (current) drug therapy; Z87.442 Personal history of urinary calculi
CPT/HCPCS: 36415; 76705; 80053; 82150; 83605; 83690; 84484; 85025; 87040 ×2; 87077; 87186; 87804 ×2; 93005; 93010; 99285; A9270; 51702; 80048; 80076; 83735; 83880; 84100; 85027; 87070; 87075; 87205; 88304; 94762; 97110-GP; 97161-GP; 99284; C9113; J0131; J0171; J0295; J0330; J1100; J2405; J2704; J2710; J2795; J3010; J3490; J7030; J7050; J7120; J7121

== ENCOUNTER 2020-01-23 23:08 | Emergency (ER) | payer MEDICARE, OTHER ==
[2020-01-23] MEDS ORDERED: Ondansetron 4 MG Tab.DIS PO ONE (23:33)
[2020-01-23] MEDS ORDERED: fentaNYL 100 MCG/2 ML SDV IM ONE (23:33)
--- NOTE | 2020-01-23 23:37 | EDM.PDOC ---
ED HPI GENERAL MEDICAL PROBLEM - General Chief Complaint: Gastrointestinal Problem Stated Complaint: abd pain Time Seen by Provider: 01/23/20 23:27 Source of Information: Reports: Patient, Family, RN Notes Reviewed History Limitations: Reports: No Limitations - History of Present Illness INITIAL COMMENTS - FREE TEXT/NARRATIVE: 84-year-old gentleman presents emergency department a complaint of abdominal pain, he is postop day 10 cholecystectomy does have a history of coronary artery disease as well states he has abdominal pain with pain radiating into his back does feel nauseated no shortness of breath no chest pain no diaphoresis , pain started approximately 5 hours ago non specific abd pain Pain Score (Numeric/FACES): 8 - Related Data Allergies Allergy/AdvReac Type Severity Reaction Status Date / Time naproxen sodium [From Aleve] Allergy Other Verified 01/23/20 23:21 Sulfa (Sulfonamide Allergy Other Verified 01/23/20 23:21 Antibiotics) Home Meds: Home Meds Aspirin [Halfprin] 81 mg PO DAILY 03/24/16 [History] Felodipine [Felodipine ER] 10 mg PO DAILY 03/24/16 [History] Fluocinonide [Lidex 0.05% Crm] 1 applic TOP BID 03/24/16 [History] Lisinopril 40 mg PO DAILY 03/24/16 [History] Simvastatin [Zocor] 20 mg PO BEDTIME 03/24/16 [History] Multivitamin [Multivitamins] 2 cap PO DAILY 04/10/16 [History] Clopidogrel Bisulfate [Clopidogrel] 75 mg PO DAILY 01/12/20 [History] Mag Hydrox/Aluminum Hyd/Simeth [Mylanta Maximum Strength Liq] 10 ml PO ASDIRECTED 01/12/20 [History] Omeprazole 40 mg PO DAILY 01/12/20 [History] Acetaminophen 1 tab PO BID #0 01/16/20 [Rx] Past Medical History HEENT History: Reports: Cataract, Impaired Vision Cardiovascular History: Reports: High Cholesterol, Hypertension, Stents, Syncope , Other (See Below) Other Cardiovascular History: Hospitialized at [facility] June 13 to .for syncopy Gastrointestinal History: Reports: GERD Genitourinary History: Reports: Renal Calculus Musculoskeletal History: Reports: Fracture Hematologic History: Reports: None Immunologic History: Reports: None Oncologic (Cancer) History: Reports: None Dermatologic History: Reports: None - Infectious Disease History Infectious Disease History: Reports: Chicken Pox, Mumps - Past Surgical History Head Surgeries/Procedures: Reports: None HEENT Surgical History: Reports: Cataract Surgery Cardiovascular Surgical History: Reports: Carotid Endarterectomy Respiratory Surgical History: Reports: None GI Surgical History: Reports: Cholecystectomy, Colonoscopy Endocrine Surgical History: Reports: None Neurological Surgical History: Reports: None Oncologic Surgical History: Reports: None Dermatological Surgical History: Reports: None Social & Family History - Tobacco Use Smoking Status *Q: Former Smoker Used Tobacco, but Quit: Yes Month/Year Tobacco Last Used: 2012 - Caffeine Use Caffeine Use: Reports: Coffee, Soda Caffeine Use Comment: couple cups of coffee per day, one soda in afternoon - Recreational Drug Use Recreational Drug Use: No - Living Situation & Occupation Living situation: Reports: Occupation: Retired (lives with [employer], [place] of [place], [place]. near [facility]) ED ROS GENERAL - Review of Systems Review Of Systems: See Below Constitutional: Reports: No Symptoms HEENT: Reports: No Symptoms Respiratory: Reports: No Symptoms Cardiovascular: Reports: No Symptoms GI/Abdominal: Reports: Abdominal Pain, Flatus, Nausea : Reports: No Symptoms ED EXAM, GI/ABD - Physical Exam Exam: See Below Exam Limited By: No Limitations General Appearance: Alert, WD/WN, No Apparent Distress Neck: Normal Inspection, Supple, Non-Tender, Full Range of Motion Respiratory/Chest: No Respiratory Distress, Lungs Clear, Normal Breath Sounds, No Accessory Muscle Use, Chest Non-Tender Cardiovascular: Regular Rate, Rhythm, No Murmur GI/Abdominal Exam: Soft, Non-Tender, Other Back Exam: Normal Inspection, Full Range of Motion. No: CVA Tenderness (R), CVA Tenderness (L) Course - Vital Signs Last Recorded V/S: Last Vital Signs Temp 97.0 F 01/23/20 23:25 Pulse 59 L 01/24/20 00:15 Resp 16 01/24/20 00:15 BP 150/41 H 01/24/20 00:15 Pulse Ox 98 01/24/20 00:15 - Orders/Labs/Meds Orders: Active Orders 24 hr Category Date Time Status Abdomen 1V Upright [CR] Urgent Exams 01/24/20 00:01 Taken Labs: Laboratory Tests 03/01/20 03/01/20 03/01/20 Range/Units 23:45 23:45 23:45 WBC 6.7 (4.5-11.0) K/uL RBC 4.44 (4.30-5.90) M/uL Hgb 12.8 (12.0-15.0) g/dL Hct 40.0 (40.0-54.0) % MCV 90 (80-98) fL MCH 29 (27-31) pg MCHC 32 (32-36) % Plt Count 272 (150-400) K/uL Neut % (Auto) 70 H (36-66) % Lymph % (Auto) 18 L (24-44) % [place] % (Auto) 10 H (2-6) % Eos % (Auto) 2 (2-4) % Baso % (Auto) 0 (0-1) % Sodium 144 (140-148) mmol/L Potassium 3.9 (3.6-5.2) mmol/L Chloride 106 (100-108) mmol/L Carbon Dioxide 27 (21-32) mmol/L Anion Gap 11.2 (5.0-14.0) mmol/L BUN 29 H D (7-18) mg/dL Creatinine 1.2 (0.8-1.3) mg/dL Est Cr Clr Drug Dosing 45.13 mL/min Estimated GFR (MDRD) 58 L (>60) Glucose 109 H (74-106) mg/dL Lactic Acid 1.2 (0.4-2.0) mmol/L Calcium 8.1 L (8.5-10.1) mg/dL Total Bilirubin 0.5 (0.2-1.0) mg/dL AST 113 H D (15-37) U/L ALT 111 H (12-78) U/L Alkaline Phosphatase 166 H (46-116) U/L Troponin I < 0.017 (0.000-0.056) ng/mL Total Protein 6.5 (6.4-8.2) g/dL Albumin 3.2 L (3.4-5.0) g/dL Globulin 3.3 (2.3-3.5) g/dL Albumin/Globulin Ratio 1.0 L (1.2-2.2) Urine Color (YELLOW) Urine Appearance (CLEAR) Urine pH (5.0-8.0) Ur Specific [place] (1.008-1.030) Urine Protein (NEGATIVE) mg/dL Urine Glucose (UA) (NEGATIVE) mg/dL Urine Ketones (NEGATIVE) mg/dL Urine Occult Blood (NEGATIVE) Urine Nitrite (NEGATIVE) Urine Bilirubin (NEGATIVE) Urine Urobilinogen (0.2-1.0) EU/dL Ur Leukocyte Esterase (NEGATIVE) Urine RBC (0-5) Urine WBC (0-5) Ur Epithelial Cells Amorphous Sediment Urine Bacteria Urine Mucus 01/24/20 Range/Units 00:13 WBC (4.5-11.0) K/uL RBC (4.30-5.90) M/uL Hgb (12.0-15.0) g/dL Hct (40.0-54.0) % MCV (80-98) fL MCH (27-31) pg MCHC (32-36) % Plt Count (150-400) K/uL Neut % (Auto) (36-66) % Lymph % (Auto) (24-44) % [place] % (Auto) (2-6) % Eos % (Auto) (2-4) % Baso % (Auto) (0-1) % Sodium (140-148) mmol/L Potassium (3.6-5.2) mmol/L Chloride (100-108) mmol/L Carbon Dioxide (21-32) mmol/L Anion Gap (5.0-14.0) mmol/L BUN (7-18) mg/dL Creatinine (0.8-1.3) mg/dL Est Cr Clr Drug Dosing mL/min Estimated GFR (MDRD) (>60) Glucose (74-106) mg/dL Lactic Acid (0.4-2.0) mmol/L Calcium (8.5-10.1) mg/dL Total Bilirubin (0.2-1.0) mg/dL AST (15-37) U/L ALT (12-78) U/L Alkaline Phosphatase (46-116) U/L Troponin I (0.000-0.056) ng/mL Total Protein (6.4-8.2) g/dL Albumin (3.4-5.0) g/dL Globulin (2.3-3.5) g/dL Albumin/Globulin Ratio (1.2-2.2) Urine Color Yellow (YELLOW) Urine Appearance Clear (CLEAR) Urine pH 5.5 (5.0-8.0) Ur Specific [place] >= 1.030 (1.008-1.030) Urine Protein Negative (NEGATIVE) mg/dL Urine Glucose (UA) Negative (NEGATIVE) mg/dL Urine Ketones Negative (NEGATIVE) mg/dL Urine Occult Blood Trace-intact H (NEGATIVE) Urine Nitrite Negative (NEGATIVE) Urine Bilirubin Negative (NEGATIVE) Urine Urobilinogen 0.2 (0.2-1.0) EU/dL Ur Leukocyte Esterase Negative (NEGATIVE) Urine RBC 0-5 (0-5) Urine WBC 0-5 (0-5) Ur Epithelial Cells Rare Amorphous Sediment Few Urine Bacteria Few Urine Mucus Many Meds: Medications Discontinued Medications Generic Name Dose Route Start Last Admin Trade Name Freq PRN Reason Stop Dose Admin Fentanyl 50 mcg 01/23/20 23:33 Sublimaze IM 01/23/20 23:34 ONETIME ONE Ondansetron HCl 4 mg 01/23/20 23:33 01/23/20 23:44 Zofran Odt PO 01/23/20 23:34 4 mg ONETIME ONE Administration Departure - Departure Time of Disposition: 00:35 Disposition: Home, Self-Care 01 Condition: Fair Clinical Impression: Functional constipation - Discharge Information Instructions: Constipation, Adult Referrals: Dayron Waterman MD [Primary Care Provider] - Forms: ED Department Discharge Additional Instructions: Try the colonoscopy prep with MiraLAX keep your follow-up appointment with general surgery on Friday call or return to the emergency department worsening of symptoms Sepsis Event Note - Evaluation Sepsis Screening Result: No Definite Risk - Focused Exam Vital Signs: Vital Signs Temp Pulse Resp BP Pulse Ox 01/24/20 00:15 59 L 16 150/41 H 98 01/23/20 23:25 97.0 F 70 16 162/67 H 98 01/23/20 23:21 97.0 F 70 16 162/67 H 98 Date Exam was Performed: 01/24/20 Time Exam was Performed: 00:34 - My Orders Last 24 Hours: My Active Orders 01/24/20 00:01 Abdomen 1V Upright [CR] Urgent - Assessment/Plan Last 24 Hours: My Active Orders 01/24/20 00:01 Abdomen 1V Upright [CR] Urgent Plan: Assessment Acuity = acute Site and laterality = functional constipation Etiology = slow transit time Manifestations = none Location of injury = Home Lab values = CBC unremarkable CMP reveals AST at 113 ALT at 111 troponin is negative lactic acid normal 1.2 and x-ray reveals large amount of stool official read radiologist pending Plan Due to MiraLAX colonoscopy prep follow-up with general surgery on Friday This note was dictated using [employer] voice recognition software please call with any questions on syntax or grammar.
[2020-01-24 00:19] VITALS: BP 150/41; PULSE 59
--- NOTE | 2020-01-24 00:41 | CRLCR ---
INDICATION: abdominal pain Status post toma 10 days pod TECHNIQUE: Abdomen/Pelvis radiograph 2 view COMPARISON: None FINDINGS: Bowel: The bowel gas pattern is normal without evidence of bowel obstruction. Soft tissue: No evidence of pneumoperitoneum present. No suspicious calcifications noted. Surgical clips are noted in the right upper quadrant from prior cholecystectomy. Bone: Unremarkable for age. IMPRESSION: 1. Unremarkable appearance of the visualized abdomen. If symptoms persist, evaluation with CT is recommended. Dictated by Celso Singleton MD @ 01/24/2020 12:39:35 AM Dictated by: Celso Singleton MD @ 01/24/2020 00:39:43 (Electronically Signed)
== END 2020-01-24 00:41 | disposition home or self-care (01) ==
LOC: JP.ED 23:08
DX: K59.04 Chronic idiopathic constipation (principal); E78.00 Pure hypercholesterolemia, unspecified; I10 Essential (primary) hypertension; K21.9 Gastro-esophageal reflux disease without esophagitis; I25.10 Atherosclerotic heart disease of native coronary artery without angina pectoris; Z79.82 Long term (current) use of aspirin; Z87.891 Personal history of nicotine dependence; Z79.899 Other long term (current) drug therapy; Z88.8 Allergy status to other drugs, medicaments and biological substances; Z88.2 Allergy status to sulfonamides
CPT/HCPCS: 36415; 74018; 80053; 81001; 83605; 84484; 85025; 99284; A9270; 99283

== ENCOUNTER 2020-01-31 07:11 | Day surgery (SDC) | payer MEDICARE, OTHER ==
[~2020-01-31 07:11] MED LIST: Propofol 200 MG/20 ML SDV ONE; fentaNYL 100 MCG/2 ML SDV ONE
[2020-01-31] MEDS ORDERED: Dextrose 5%-Lactated Ringers 1,000 ML IV SCH (08:00)
[2020-01-31] MEDS ORDERED: Pantoprazole 40 MG Vial IVPUSH ONE (09:10)
[2020-01-31 10:07] VITALS: BP 161/72; PULSE 51
--- NOTE | 2020-02-09 14:32 | OR ---
DATE OF PROCEDURE: 01/31/2020 SURGEON: Philipp Rooney MD PREOPERATIVE DIAGNOSIS: Epigastric pain and heartburn. POSTOPERATIVE DIAGNOSIS: Epigastric pain and heartburn associated with erosive antral gastritis and duodenitis. OPERATIVE PROCEDURE: Esophagogastroduodenoscopy with antral biopsies for CLOtest. ANESTHESIA: IV sedation. INDICATION FOR PROCEDURE: This is an 84-year-old who has been having problems with some chest pain over time. He was recently treated for acute gangrenous cholecystitis with abscess formation. He has done well with regard to that, but continues to have some epigastric discomfort and chest pain. He was empirically placed on omeprazole 40 mg a day sometime ago, but has never had a formal upper GI endoscopic examination. Did appear that the underlying cardiac issues at this point have been cleared as well. Plan is to proceed with upper GI endoscopy with biopsies as indicated. Potential risks including bleeding and perforation were discussed, and the patient wishes to proceed. DETAILS OF PROCEDURE: The patient was taken to the operating room and placed in a left lateral decubitus position. IV sedation was administered, after which the upper GI endoscope was passed orally through the length of the esophagus and into the stomach with retroflexion view of the fundus, and thereafter, through the pyloric channel into the junction of the 3rd and 4th portions of the duodenum. Findings included normal hypopharynx, larynx, upper esophageal sphincter, and esophageal body. At the EG junction, no significant inflammation noted. A very small hiatal hernia was evident. Within the stomach, there was quite aggressive erosive gastritis in the antrum with there being several erosions covered with fibrinous exudate. As one passed through the pyloric channel, the duodenum bulb was involved with some duodenitis, but without erosions. Beyond the duodenal bulb, the findings normalized. At this point, biopsies were obtained from the antrum and sent for CLOtest for H pylori, and the procedure was then concluded. The patient has been on omeprazole 40 mg a day. I think at this point we will give him Protonix 40 mg IV in the PAR and then switch him over to Protonix 40 mg p.o. b.i.d. to see if we can control these symptoms. We will await the CLOtest results as well. We will see the patient back on 02/16/2020 for further followup. Philipp Rooney MD /[id number]
== END 2020-01-31 10:32 | disposition home or self-care (01) ==
LOC: JP.SDS 07:11
PROVIDERS: ATTEND Surgery
DX: K25.9 Gastric ulcer, unspecified as acute or chronic, without hemorrhage or perforation (principal); K29.70 Gastritis, unspecified, without bleeding; K29.80 Duodenitis without bleeding; K44.9 Diaphragmatic hernia without obstruction or gangrene; Z79.899 Other long term (current) drug therapy; Z87.891 Personal history of nicotine dependence
CPT/HCPCS: 43239; 87081; C9113; J2704; J3010; J7121

== ENCOUNTER 2020-03-23 07:40 | Day surgery (SDC) | payer MEDICARE, OTHER ==
[2020-03-23] MEDS ORDERED: Lidocaine 2% Viscous Solution 15 ML Cup ONE (08:14)
[2020-03-23] MEDS ORDERED: Lidocaine 4% Top Soln 50 ML Bottle ONE (08:14)
[2020-03-23] MEDS ORDERED: Dextrose 5%-Lactated Ringers 1,000 ML IV SCH (08:30)
[2020-03-23] MEDS ORDERED: fentaNYL 100 MCG/2 ML SDV ONE (09:24)
[2020-03-23] MEDS ORDERED: Midazolam 1 MG/ML 2 ML SDV ONE (09:24)
[2020-03-23] MEDS ORDERED: Propofol 200 MG/20 ML SDV ONE (09:24)
[2020-03-23] MEDS ORDERED: Lidocaine 4% Top Soln LTA 4 ML Syringe Kit ONE (09:25)
[2020-03-23 11:59] VITALS: BP 127/61; PULSE 47
--- NOTE | 2020-04-02 11:42 | OR ---
DATE OF PROCEDURE: 03/23/2020 SURGEON: Philipp Rooney MD PREOPERATIVE DIAGNOSIS: Left lower lobe mass. POSTOPERATIVE DIAGNOSIS: Left lower lobe mass. OPERATIVE PROCEDURES: Flexible bronchoscopy with tracheobronchial washings: 1. Brushings to medial basilar segment bronchus x3 (20632). 2. Bronchoalveolar lavage to medial basilar segment of left lower lobe (86365). ANESTHESIA: Topical plus IV sedation. INDICATIONS FOR PROCEDURE: This is an 84-year-old presenting with a newly identified left lower lobe mass. This appears to be coming off the medial basilar segment and plan is to proceed with bronchoscopy with biopsies and/or other diagnostic procedures as indicated. Potential risks including bleeding and infection were reviewed, and the patient wishes to proceed. DETAILS OF PROCEDURE: The patient was taken to the operating room and placed in a semi- sitting position. IV sedation was administered, after which the nasal passages and hypolarynx and pharynx were anesthetized with topical lidocaine. Translaryngeal injection of lidocaine was then placed for anesthesia. Through the right-sided nose, the bronchoscope was then passed and the visualized nasopharynx and hypopharynx were unremarkable. Cord motion was symmetrical. Upon entering the trachea, there was no deviation of the tracheal course. The right tracheobronchial tree was entirely unremarkable. On the left side, the only abnormality was slight edema and narrowing of the orifice of the medial basilar segment of the left lower lobe. To this point, diffuse tracheobronchial washings were obtained. Following this, 2 sets of brushings were then passed into the medial basilar segmental bronchus and sent for Saccomanno solution. Following this, 200 mL of saline was injected in bronchus and the fluid was then evacuated and sent for cytologic and microbiologic workup. At that point, there were no evident complications. The patient was both on Plavix and aspirin, but did not have significant bleeding. Procedure was then concluded. The patient was taken to the recovery room in satisfactory condition. Philipp Rooney MD /[id number]
== END 2020-03-23 12:21 | disposition home or self-care (01) ==
LOC: JP.SDS 07:40
PROVIDERS: ATTEND Surgery
DX: R84.6 Abnormal cytological findings in specimens from respiratory organs and thorax (principal); J98.09 Other diseases of bronchus, not elsewhere classified; I10 Essential (primary) hypertension
CPT/HCPCS: 31623; 31624; 87015; 87070; 87102; 87116; 87205; 87206; 87220; 88112; 88305; 88312; A9270; J2704; J7121; J2250; J3010

== ENCOUNTER 2020-04-10 08:18 | Inpatient (IN) | payer MEDICARE, OTHER ==
[~2020-04-10 08:18] MED LIST changes: +Dexamethasone 4 MG/ML SDV ONE; +Glycopyrrolate 0.2 MG/ML 5 ML MDV ONE; +Heparin Sodium 5,000 Units/ML Vial ONE; +Neostigmine Methylsulfate 1 MG/ML 5 ML Syringe ONE; +Ondansetron 4 MG/2 ML SDV ONE; +Rocuronium 50 MG/5 ML Vial ONE; +Succinylcholine 200 MG/10 ML MDV ONE; -fentaNYL 100 MCG/2 ML SDV ONE; +fentaNYL 250 MCG/5 ML SDV ONE
[2020-04-10] MEDS ORDERED: Acetaminophen 500 MG Tab PO ONE (09:00)
[2020-04-10] MEDS: Dextrose 5%-Lactated Ringers 1,000 ML IV SCH ×2 (09:01→21:08)
[2020-04-10] MEDS ORDERED: ceFAZolin 2 GM in Premix Bag 1 BAG IV ONE (09:30)
[2020-04-10] MEDS ORDERED: Bupivacaine 0.5%/EPINEPHrine 1:200,000 50 ML MDV ONE (09:39)
[2020-04-10] MEDS ORDERED: Meropenem 500 MG SDV ONE (10:04)
[2020-04-10] MEDS ORDERED: Neostigmine Methylsulfate 1 MG/ML 5 ML Syringe ONE (10:39)
[2020-04-10] MEDS ORDERED: Ondansetron 4 MG/2 ML SDV ONE (10:39)
[2020-04-10] MEDS ORDERED: Rocuronium 50 MG/5 ML Vial ONE (10:39)
[2020-04-10] MEDS ORDERED: Dexamethasone 4 MG/ML SDV ONE (10:39)
[2020-04-10] MEDS ORDERED: fentaNYL 250 MCG/5 ML SDV ONE (10:39)
[2020-04-10] MEDS ORDERED: Propofol 200 MG/20 ML SDV ONE (10:39)
[2020-04-10] MEDS ORDERED: Glycopyrrolate 0.2 MG/ML 5 ML MDV ONE (10:39)
[2020-04-10] MEDS ORDERED: Succinylcholine 200 MG/10 ML MDV ONE (10:39)
[2020-04-10] MEDS ORDERED: Lidocaine 1% 50 ML MDV ONE (11:49)
[2020-04-10] MEDS ORDERED: fentaNYL 100 MCG/2 ML SDV ONE (13:25)
[2020-04-10] MEDS ORDERED: diphenhydrAMINE 25 MG Cap PO PRN (13:50)
[2020-04-10] MEDS ORDERED: diphenhydrAMINE 50 MG/ML SDV IVPUSH PRN (13:50)
[2020-04-10] MEDS ORDERED: Naloxone 0.4 MG/ML SDV IVPUSH PRN (13:50)
[2020-04-10] MEDS ORDERED: Ondansetron 4 MG/2 ML SDV IVPUSH PRN ×2 (13:50→14:47)
--- NOTE | 2020-04-10 14:09 | CRLCR ---
Indication: Post left-sided thoracotomy Technique: Chest 1 view Comparison: None. Findings/Impression: Cardiovascular and mediastinum: Heart size and vasculature are normal in caliber and appearance. Lungs and pleural space: There are 2 left-sided chest tubes. Despite the presence of chest tubes, there is a large left-sided pneumothorax. Right lung and pleural space are clear. Bones and soft tissues: No acute findings. Dictated by Lawrence Mireles MD @ Apr 10 2020 2:07PM Signed by Dr. Lawrence Mireles @ Apr 10 2020 2:07PM
[2020-04-10] MEDS: HYDROmorphone/Normal Saline 15 MG/30 ML PCA IV PRN (14:10)
[2020-04-10] MEDS ORDERED: hydrOXYzine HCL 100 MG/2 ML SDV IM PRN (14:48)
[2020-04-10] MEDS ORDERED: Nitroglycerin 0.4 MG Tab.SL SL PRN (14:49)
[2020-04-10] MEDS: Acetaminophen 500 MG Tab PO SCH ×2 (16:17→22:04)
[2020-04-10] MEDS: Pantoprazole 40 MG Vial IV SCH (16:17)
[2020-04-10] MEDS ORDERED: Celecoxib 200 MG Cap PO SCH (17:00)
[2020-04-10] MEDS: ceFAZolin 2 GM in Premix Bag 1 BAG IV SCH (17:46)
[2020-04-11] MEDS ORDERED: Lactated Ringers 500 ML IV ONE ×3 (00:17→16:31)
[2020-04-11] MEDS: ceFAZolin 2 GM in Premix Bag 1 BAG IV SCH ×3 (01:04→18:28)
[2020-04-11] MEDS: Acetaminophen 500 MG Tab PO SCH ×4 (03:38→22:04)
[2020-04-11] MEDS: Dextrose 5%-Lactated Ringers 1,000 ML IV SCH ×3 (03:40→18:43)
--- NOTE | 2020-04-11 06:14 | CRLCR ---
Indication: Status post partial left lung resection Technique: Single-view portable chest radiograph April 11, 2020 at 5:26 a.m. Comparison: April 10, 2020 01:49 p.m. Findings: Heart size normal. Right lung and right pleural space within normal limits. 2 chest tubes on the left 1 ending in the medial left thorax in 1 closer towards the base. Volume loss. Moderate effusion. Pneumothorax with a air gap measuring 3.8 centimeters. This is larger than yesterday when it measured 2.8 centimeters. Impression: There is a left hydropneumothorax. The fluid component is essentially new in the air component is larger. The air gap today is roughly 3.8 centimeters. Yesterday, it was roughly 2.8 centimeters. Chest tubes remain normally located. Dictated by Philipp Cavazos MD @ Apr 11 2020 6:11AM Signed by Dr. Philipp Cavazos @ Apr 11 2020 6:13AM
--- NOTE | 2020-04-11 07:27 | CRLCR ---
INDICATION: Recheck after evacuation blood from the left-sided chest tubes COMPARISON: April 11, 2020 at 5:26 a.m. TECHNIQUE: April 11, 2020 at 7:08 a.m. FINDINGS: TUBES AND LINES: Again 2 left chest tubes are identified which appear to be normally located and unchanged in position HEART AND MEDIASTINUM: Heart size unchanged. LUNGS AND PLEURAL SPACES: Normal appearing right lung the right pleural space. Persistent but improved fluid at the left base. Improved aeration at the left base. Persistent but improved left apical pneumothorax. Air gap is currently 2 centimeters. On the prior study it was closer to 3.8 centimeters. OSSEOUS STRUCTURES: Age-appropriate appearance. No acute focal finding. IMPRESSION: The 2 left chest tubes are unchanged in position. Improved left base airspace process and improved left effusion. Persistent but improved left pneumothorax. There air gap currently 2 centimeters. On the prior study it was 3.8 centimeters. Dictated by Philipp Cavazos MD @ Apr 11 2020 7:23AM Signed by Dr. Philipp Cavazos @ Apr 11 2020 7:26AM
[2020-04-11] MEDS: Magnesium Sulfate/Water 2 GM in Premix Bag 1 BAG IV SCH ×3 (08:26→20:13)
[2020-04-11] MEDS: Isosorbide Mononitrate 30 MG Tab.ER PO SCH (08:27)
[2020-04-11] MEDS: Clopidogrel 75 MG Tab PO SCH (08:27)
[2020-04-11] MEDS: Aspirin 81 MG Tab.EC PO SCH (08:27)
[2020-04-11] MEDS: FELODIPINE 10 MG PO SCH (12:19)
[2020-04-11] MEDS: Pantoprazole 40 MG Vial IV SCH (16:38)
[2020-04-11] MEDS ORDERED: Dextrose 5%-Lactated Ringers 1,000 ML IV SCH (20:00)
[2020-04-12] MEDS: ceFAZolin 2 GM in Premix Bag 1 BAG IV SCH ×2 (02:02→09:23)
[2020-04-12] MEDS: Magnesium Sulfate/Water 2 GM in Premix Bag 1 BAG IV SCH ×4 (02:36→20:01)
[2020-04-12] MEDS: Acetaminophen 500 MG Tab PO SCH ×4 (04:29→21:32)
--- NOTE | 2020-04-12 05:20 | CRLCR ---
INDICATION: Left lower lobectomy TECHNIQUE: Frontal view of the chest. COMPARISON: Single-view chest radiograph 04/11/2020 FINDINGS: There is a stable moderate size left pleural effusion. Left chest wall skin moira are noted. Subcutaneous emphysema in the left supraclavicular region is slightly increased. There is no appreciable pneumothorax. The right lung is aerated. The cardiomediastinal silhouette is stable IMPRESSION: 1. Stable left pleural effusion. 2. Slightly increased subcutaneous emphysema in the left supraclavicular region. Dictated by Mohit Villavicencio MD @ Apr 12 2020 5:16AM Signed by Dr. Mohit Villavicencio @ Apr 12 2020 5:19AM
[2020-04-12] MEDS ORDERED: Dextrose 5%-Lactated Ringers 1,000 ML IV SCH (07:15)
[2020-04-12] MEDS: FELODIPINE 10 MG PO SCH (07:23)
[2020-04-12] MEDS: Isosorbide Mononitrate 30 MG Tab.ER PO SCH (09:26)
[2020-04-12] MEDS: Bisacodyl 5 MG Tab PO SCH ×2 (09:26→21:32)
[2020-04-12] MEDS: Clopidogrel 75 MG Tab PO SCH (09:26)
[2020-04-12] MEDS: Aspirin 81 MG Tab.EC PO SCH (09:26)
[2020-04-12] MEDS: Docusate Sodium 100 MG Cap PO SCH ×2 (09:27→21:32)
[2020-04-12] MEDS: Potassium Phos in 0.9 % NaCl 15 MMOL in Premix Bag 1 BAG IV SCH ×4 (09:57→13:14)
[2020-04-12] MEDS: HYDROmorphone/Normal Saline 15 MG/30 ML PCA IV PRN (12:07)
--- NOTE | 2020-04-12 15:33 | PN ---
DATE OF SERVICE: 04/12/2020 The patient has been afebrile with stable vital signs. His level of alertness is quite good this morning. Chest tube shows some continued air leak, but the chest x-ray looks quite a bit better. There is some fluid in the bases, but the vast majority of that was evacuated. The chest tube output for 24 hours was 900. It is becoming less bloody and more serous. Although his urine output has now picked up quite nicely, interestingly , his BNP went down. His hemoglobin did drop to 8.9, and we will give him 1 unit of packed RBCs today. We will give him some potassium phosphate in anticipation of ongoing diuresis. Will go to a full liquid diet, begin some bowel stimulation, and continue to maximize activity and work with pulmonary toilet. Philipp Rooney MD /[id number] MTDD
[2020-04-12] MEDS: Pantoprazole 40 MG Vial IV SCH (16:10)
--- NOTE | 2020-04-12 16:20 | PN ---
DATE OF SERVICE: 04/11/2020 The patient has been afebrile with stable vital signs. Urine output has been a little bit low. On the chest x-ray, he does note to have a significant hemothorax. We had him just water sealed overnight due to some air leaking in the immediate postoperative period and much of the space occupied by the right lower lobe is now filled with blood. We did put a tube on suction and quite a bit is coming out. So I think we will probably need to get that largely evacuated before it turns into more of a solid clot, and we will recheck a chest x- ray roughly half an hour after we have placed the tube and suctioned. Otherwise, he has been hemodynamically stable. Urine output has been a little bit low, but as hemoglobin did drop into 7.8, so that would be expected. He has been receiving his 2nd unit of packed RBCs after the hemoglobin of 7.8 was drawn around 4 a.m. Otherwise, his creatinine is stable at 1.2. His preoperative BNP was 505, which we will assume as his baseline, and it is 345 this morning consistent with him being a little bit on the dry side. Otherwise, his pain control appears to be reasonably satisfactory. Magnesium is slightly low, we will supplement that. Otherwise, we will not advance his diet more than sips of clear liquids for today, and we will recheck a hemoglobin 1 hour after the 2nd unit is completed this morning. Philipp Rooney MD /[id number]
--- NOTE | 2020-04-12 16:22 | OR ---
DATE OF PROCEDURE: 04/10/2020 SURGEON: Philipp Rooney MD CORRECTED REPORT: PREOPERATIVE DIAGNOSIS: Probable carcinoma, left lower lobe. 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 OPERATIVE PROCEDURES: Left lateral thoracotomy with: 1. Left lower lobectomy (63232). 2. Mediastinal lymph node dissection (55670). ANESTHESIA: General. MONITOR AND STORAGE BIN TENDER: Tonya Bains PA-C INDICATIONS FOR PROCEDURE: This is an 84-year-old recently being worked up for some abdominal symptoms, who had a CT scan which showed a left lower lobe mass. Subsequent CT scan showed the left lower lobe mass without significant mediastinal lymphadenopathy. A PET scan was obtained, which showed high uptake in the mass, as well as possible lymph node versus an extension of the mass somewhat superiorly with the lymph node, if present and involved by tumor, would be a hilar node. The situation was discussed with Medical Oncology. Flexible bronchoscope was obtained previously, which was nondiagnostic. The next appropriate step would be to proceed with a resection of this area. The patient's workup included a pulmonary function test, which showed an FEV1 of 108% predicted, and a quantitative perfusion scan showed the left lower lung field only 9.7%, so the patient would be expected to tolerate a left lower lobectomy quite well. One of the concerns reviewed with the patient and his was that the tumor more or less abuts the descending thoracic aorta. There is a possibility that this could be adherent, precluding a safe resection or requiring a resection with a patch graft type reconstruction. Otherwise, potential risks of the procedure including bleeding, infection, possible local or distant tumor recurrence, possibility that the tumor may not be safely resectable, as well as the possibility of cardiopulmonary, septic, or hemorrhagic complications leading to were discussed, and the patient wishes to proceed. From an anesthetic standpoint, we will go with a straight general anesthetic with intercostal blocks at the end of the procedure, as he is status post coronary artery stent placement this past July, and this precludes taking him off aspirin and Plavix, making an epidural catheter placement overly risky. DETAILS OF PROCEDURE: The patient was taken to the operating room. After general endotracheal anesthesia was induced, a Dunn catheter was inserted. The patient was placed in a right lateral decubitus position. The left chest and surrounding areas were then prepped and draped. A standard anterolateral thoracotomy was then made and carried down through the skin and subcutaneous tissue and musculature, and the fifth interspace was then entered. The patient was noted to have some scattered adhesions between the lung and the chest wall. These were filmy adhesions and not at all problematic with regard to tumor involvement. Otherwise, the examination of pleural space showed no fluid and no evidence of any pleural seeding. The mass was easily palpable as expected. It was mobile with regard to the aorta and eventually it was able to be dissected off with a margin of soft tissue away from the lung surface, providing what should be a negative margin in that area. At this point, the inferior pulmonary ligament was divided and the pleural dissection was then initiated and continued superiorly, more or less skeletonizing the aorta and removing all the soft tissue over that area between that and the tumor. This extended up to a point at the posterior aspect of the hilum and then anteriorly up to the point of the inferior pulmonary vein. The inferior pulmonary vein was then encircled and divided flush with the pericardium with the TERRI field load. Further dissection then exposed the left pulmonary artery. The basilar branches and superior segmental branch were then each individually isolated. The superior segmental arterial branch came off low enough that we were able to take that along with the origin of the basilar segments with a single TERRI staple load. The underlying bronchus was then freed up and divided with a TERRI black load, and the specimen delivered from the field. Of note, prior to firing of bronchial stapler, we did briefly inflate the remaining upper lobe and lingula to some extent to make sure that we were not impinging on the bronchi of those segments of the lung. The specimen was taken for frozen section. Primary tumor was felt to be squamous cell carcinoma and the bronchial margins were found to be clear. A hilar lymph node, which was somewhat firm, was away from the primary specimen and sent for permanent sections alone. This was the only lymph node encountered during the course of the procedure that was grossly suspicious. Formal lymph node dissection then began in the area of the inferior pulmonary ligament. Some juan manuel tissue in that area was excised (station 9). This then continued along the paraesophageal area. There were some small mobile nodes there, and these were taken flush with the esophagus and adjacent descending thoracic aorta with TERRI staple load. Paraesophageal nodes were then sent (station 8). Dissection then continued more proximally and the subcarinal juan manuel tissue was identified and excised (station 7). Continuing more superiorly, the ascending aorta and AP window lymph nodes were excised (stations 6 and 5). Care was taken to avoid injury to the vagus nerve and recurrent laryngeal nerve, as well as the phrenic nerve in the course of that dissection. Finally, the inferior paratracheal lymph node tissue was excised and sent as well (station 4L). The lymph node dissection was accomplished with use of combination of cautery dissection and hemoclips, avoiding cautery dissection in the areas adjacent to the nerves. Throughout the procedure, the patient had a little bit more oozing than usual, but at this point, hemostasis appeared to be satisfactory. Fibrin sealant was then applied to the hilar areas, including the pulmonary vein, bronchus, and ligated pulmonary artery, as well as the juan manuel dissection in the area of the AP window and ascending aorta, which was more broadly dissected than the other areas of the lymph node dissection. The area was then irrigated with meropenem-containing saline solution. Two chest tubes were placed, a 32-Malay straight tube and a right-angled 36-Malay chest tube, through the stab wounds inferior to the main incision. The remaining upper lobe and lingula were then reinflated and no air leaks were seen either at the bronchial stump or on the surface of the remaining lung. At this point, intercostal blocks were placed using a total of 40 mL of 0.5% Marcaine mixed with 1% lidocaine. This was then approximated with some interrupted #2 Vicryl sutures. The musculature was closed with a #2 Vicryl stitch as well, subcutaneous tissue with 4-0 Vicryl stitch, and the skin with moira. The drains were sutured to the skin with some 2-0 Ethibond stitch. The patient was taken to the recovery room in satisfactory condition. The patient was extubated in the operating room and appeared to be doing well with regard to his respiratory status. The patient remained hemodynamically stable throughout the course of the procedure and was taken to the recovery room in satisfactory condition. Physician staff assistant, Tonya Bains, played an essential role in assisting in this case; helping to position the patient, retract structures as needed, as well as suturing and cutting sutures when indicated. Her presence improved patient safety and decreased the operative time. Philipp Rooney MD /[id number]
[2020-04-13] MEDS: Magnesium Sulfate/Water 2 GM in Premix Bag 1 BAG IV SCH (02:17)
--- NOTE | 2020-04-13 04:18 | CRLCR ---
INDICATION: Left lower lobectomy TECHNIQUE: Portable upright frontal view of the chest COMPARISON: Single-view chest radiograph 04/12/2020 FINDINGS: Elevated left hemidiaphragm with pleural effusion are unchanged. Left upper lung is aerated, as is the right lung. No right pleural effusion. The cardiomediastinal silhouette is stable. Subcutaneous emphysema is again noted in the left supraclavicular region. IMPRESSION: Stable radiographic appearance of the chest. Dictated by Mohit Villavicencio MD @ Apr 13 2020 4:13AM Signed by Dr. Mohit Villavicencio @ Apr 13 2020 4:15AM
[2020-04-13] MEDS: Acetaminophen 500 MG Tab PO SCH ×4 (04:41→21:42)
[2020-04-13] MEDS ORDERED: Furosemide 20 MG/2 ML VIAL IVPUSH ONE (07:30)
[2020-04-13] MEDS ORDERED: Tamsulosin 0.4 MG Cap.ER PO ONE (07:30)
[2020-04-13] MEDS: FELODIPINE 10 MG PO SCH (07:37)
[2020-04-13] MEDS: Dextrose 5%-Lactated Ringers 1,000 ML IV SCH (08:06)
[2020-04-13] MEDS: Docusate Sodium 100 MG Cap PO SCH ×2 (08:10→21:42)
[2020-04-13] MEDS: Aspirin 81 MG Tab.EC PO SCH (08:11)
[2020-04-13] MEDS: Isosorbide Mononitrate 30 MG Tab.ER PO SCH (08:11)
[2020-04-13] MEDS: Clopidogrel 75 MG Tab PO SCH (08:12)
[2020-04-13] MEDS: Pantoprazole 40 MG Vial IV SCH (15:44)
[2020-04-13] MEDS: Tamsulosin 0.4 MG Cap.ER PO SCH (21:42)
--- NOTE | 2020-04-14 04:24 | CRLCR ---
INDICATION: Left lower lobe lung resection, follow-up TECHNIQUE: Frontal view of the chest. COMPARISON: Single-view chest radiograph 04/13/2020 FINDINGS: There is stable blunting the left costophrenic angle likely related to small pleural effusion with adjacent atelectasis. There similar elevation of the left hemidiaphragm. The right lung is well aerated. There is no pneumothorax. Subcutaneous emphysema is again noted in the left supraclavicular region. Left chest wall skin moira and soft tissue edema are also noted. IMPRESSION: Stable radiographic appearance of the chest. Dictated by Mohit Villavicencio MD @ Apr 14 2020 4:19AM Signed by Dr. Mohit Villavicencio @ Apr 14 2020 4:21AM
[2020-04-14] MEDS: Acetaminophen 500 MG Tab PO SCH ×4 (05:40→21:38)
[2020-04-14] MEDS: FELODIPINE 10 MG PO SCH (07:26)
[2020-04-14] MEDS: Potassium Phos in 0.9 % NaCl 15 MMOL in Premix Bag 1 BAG IV SCH ×4 (08:18→10:36)
[2020-04-14] MEDS: Aspirin 81 MG Tab.EC PO SCH (08:19)
[2020-04-14] MEDS: Docusate Sodium 100 MG Cap PO SCH ×2 (08:19→21:38)
[2020-04-14] MEDS: Isosorbide Mononitrate 30 MG Tab.ER PO SCH (08:19)
[2020-04-14] MEDS: Clopidogrel 75 MG Tab PO SCH (08:20)
[2020-04-14] MEDS ORDERED: Furosemide 20 MG/2 ML VIAL IVPUSH ONE (09:00)
[2020-04-14] MEDS ORDERED: Lidocaine 2% Jelly 10 ML Urojet MUCMEM ONE (09:23)
[2020-04-14] MEDS: Pantoprazole 40 MG Tab.CR PO SCH (10:55)
[2020-04-14] MEDS ORDERED: Bisacodyl 5 MG Tab PO PRN (13:32)
[2020-04-14] MEDS: Tamsulosin 0.4 MG Cap.ER PO SCH (21:38)
[2020-04-15] MEDS: Acetaminophen 500 MG Tab PO SCH ×4 (03:15→23:48)
[2020-04-15] MEDS: Dextrose 5%-Lactated Ringers 1,000 ML IV SCH (03:19)
--- NOTE | 2020-04-15 05:47 | CRLCR ---
Indication: Left lower lobe lung resection Technique: Portable upright AP view of the chest Comparison: Single-view chest radiograph 04/14/2020 Findings/Impression: There are stable postsurgical changes of the left hemithorax with volume loss and small left pleural effusion. Two left chest tubes are in stable position. Left apical pneumothorax is decreased, now with 1.6 cm of pleural separation, decreased from 1.9 cm previously. Chest wall skin moira are again noted. Left supraclavicular subcutaneous emphysema is slightly decreased. The right lung is well aerated. There is no right pleural effusion. Dictated by Mohit Villavicencio MD @ Apr 15 2020 5:40AM Signed by Dr. Mohit Villavicencio @ Apr 15 2020 5:47AM
[2020-04-15] MEDS: Pantoprazole 40 MG Tab.CR PO SCH (07:19)
[2020-04-15] MEDS: FELODIPINE 10 MG PO SCH (07:19)
[2020-04-15] MEDS: Aspirin 81 MG Tab.EC PO SCH (08:36)
[2020-04-15] MEDS: Docusate Sodium 100 MG Cap PO SCH ×2 (08:36→20:23)
[2020-04-15] MEDS: Clopidogrel 75 MG Tab PO SCH (08:36)
[2020-04-15] MEDS: Isosorbide Mononitrate 30 MG Tab.ER PO SCH (08:36)
[2020-04-15] MEDS ORDERED: Tamsulosin 0.4 MG Cap.ER PO ONE (09:00)
[2020-04-15] MEDS: HYDROmorphone 2 MG Tab PO PRN ×3 (12:23→20:22)
[2020-04-15] MEDS: Tamsulosin 0.4 MG Cap.ER PO SCH (20:23)
[2020-04-16] MEDS: HYDROmorphone 2 MG Tab PO PRN ×5 (03:17→21:20)
[2020-04-16] MEDS: Acetaminophen 500 MG Tab PO SCH ×4 (03:17→21:20)
[2020-04-16] MEDS: FELODIPINE 10 MG PO SCH (08:14)
[2020-04-16] MEDS: Isosorbide Mononitrate 30 MG Tab.ER PO SCH (08:14)
[2020-04-16] MEDS: Aspirin 81 MG Tab.EC PO SCH (08:15)
[2020-04-16] MEDS: Docusate Sodium 100 MG Cap PO SCH ×2 (08:15→21:20)
[2020-04-16] MEDS: Clopidogrel 75 MG Tab PO SCH (08:15)
[2020-04-16] MEDS: Pantoprazole 40 MG Tab.CR PO SCH (08:15)
[2020-04-16] MEDS: Tamsulosin 0.4 MG Cap.ER PO SCH (21:20)
[2020-04-17] MEDS: Acetaminophen 500 MG Tab PO SCH ×4 (03:14→21:00)
[2020-04-17] MEDS: HYDROmorphone 2 MG Tab PO PRN ×4 (05:51→19:38)
[2020-04-17] MEDS: FELODIPINE 10 MG PO SCH (07:18)
[2020-04-17] MEDS: Pantoprazole 40 MG Tab.CR PO SCH (07:19)
[2020-04-17] MEDS: Aspirin 81 MG Tab.EC PO SCH (08:42)
[2020-04-17] MEDS: Docusate Sodium 100 MG Cap PO SCH ×2 (08:42→20:50)
[2020-04-17] MEDS: Isosorbide Mononitrate 30 MG Tab.ER PO SCH (08:42)
[2020-04-17] MEDS: Clopidogrel 75 MG Tab PO SCH (08:43)
--- NOTE | 2020-04-17 14:21 | PN ---
DATE OF SERVICE: 04/16/2020 The patient has been afebrile with stable vital signs. Chest tube output remains fairly high, around 440 mL. Otherwise, chest x-ray looks satisfactory. No air leak is noted. We are still awaiting the chest tube output to decrease enough to pull those. We will recheck some labs tomorrow. Otherwise, saline lock the IV. He did require more than 2 mg of Dilaudid for pain control, so he is getting more or less 4 mg every 4 hours, plus Tylenol which appeared to be reasonable given the extent of his procedure. Philipp Rooney MD /[id number]
--- NOTE | 2020-04-17 14:48 | PN ---
DATE OF SERVICE: 04/14/2020 The patient has been afebrile with stable vital signs. No major problems were noted overnight. The oxygenation remained fairly good. Chest tube output was around 825 over the last 24 hours, that is up quite a bit, but I suspect previous 24 hours, it was inaccurately reported. The air leak appears to be stopped at this point, and chest x-ray continues to be satisfactory. There is probably a little bit of clot in the base but the vascular area of the pleural space is well filled with lung with intended elevation of the left diaphragm as one would expect. Pathology report is still pending. Oral intake was fairly good at around 1400 mL. He has diuresed quite a bit, around 3 L over the last 24 hours, which is obviously quite good as well. Labs show the hemoglobin now up to 11.7. This came up quite a bit due to both 1 unit being transfused, as well as diuresis. Chemistries show no major problems. BNP is up a little bit at 504 from the 200s to 300s previously, so we will give some additional Lasix this morning and prophylactically treat the potassium issue with some K-Phos. Otherwise, he will be transferred to second floor today. Maximize activity and work with pulmonary toilet. Philipp Rooney MD /[id number] MTDD
--- NOTE | 2020-04-17 14:56 | PN ---
DATE OF SERVICE: 04/15/2020 The patient has been afebrile with stable vital signs. Clinically, he is doing well. The air leak remains absent. Chest tube output was around 400 mL over the last 24 hours. Clinically, he looks little bit better today. Did retain urine yesterday with post void residual of over a liter, and Dunn catheter was therefore placed. We will give him an extra dose of Flomax today and then try and get the Dunn catheter out tomorrow. We will otherwise switch over to oral pain medication. They are more or less awaiting the chest tube output to decrease enough to allow those to be removed. Philipp Rooney MD /[id number] MTDD
--- NOTE | 2020-04-17 15:38 | PN ---
DATE OF SERVICE: 04/17/2020 The patient has been afebrile with stable vital signs. He is active and appeared to be showing good pain control. The chest tube output has fallen down to 220 cc, was switched into a small [facility] chest tube box today. I think there is a good chance we will be able to get the chest tubes out tomorrow. Otherwise, we are awaiting the pathology report and he will likely be ready for discharge home midweek or so. Philipp Rooney MD /[id number]
[2020-04-17] MEDS: Tamsulosin 0.4 MG Cap.ER PO SCH (20:50)
[2020-04-18] MEDS: HYDROmorphone 2 MG Tab PO PRN ×5 (01:29→21:06)
[2020-04-18] MEDS: Acetaminophen 500 MG Tab PO SCH ×4 (04:13→21:04)
--- NOTE | 2020-04-18 07:16 | PN ---
DATE OF SERVICE: 04/13/2020 The patient has been afebrile with stable vital signs. Pain control is much better each day. He is able to walk an extended length over last 24 hours. He has had a good diuresis with a net diuresis of over 1 L. Chest tube output is 400 mL, it is a little bit bloody. There is still some degree of air leak. Chest x-ray looks fairly good. There was only a small amount of fluid or perhaps some blood in the bases. The lung is otherwise well expanded. He did move his bowels, and we will move him up to a regular diet today and then we will start empirically some Flomax this morning and then try getting the Dunn catheter out later today. We will start to switch over to oral pain medicine tomorrow, and he may be able to get upstairs tomorrow. Pathology report remains pending. Philipp Rooney MD /[id number]
[2020-04-18] MEDS: FELODIPINE 10 MG PO SCH (08:26)
[2020-04-18] MEDS: Aspirin 81 MG Tab.EC PO SCH (08:27)
[2020-04-18] MEDS: Isosorbide Mononitrate 30 MG Tab.ER PO SCH (08:27)
[2020-04-18] MEDS: Pantoprazole 40 MG Tab.CR PO SCH (08:27)
[2020-04-18] MEDS: Clopidogrel 75 MG Tab PO SCH (08:27)
[2020-04-18] MEDS: Docusate Sodium 100 MG Cap PO SCH ×2 (08:27→21:04)
--- NOTE | 2020-04-18 10:07 | CR ---
CHEST: Portable 04/16/2020 at 445 AM CLINICAL HISTORY:Postop left thoracotomy COMPARISON:04/15/2020 FINDINGS: 2 left chest tubes remain in place. Stable volume loss in the left hemithorax. Right lung is hyperaerated but clear. Impression: Status post left thoracotomy. Left chest tubes remain in place No significant change from prior study
--- NOTE | 2020-04-18 10:09 | CR ---
CHEST: Portable 04/17/2020 at 04 21 CLINICAL HISTORY:Status post left thoracotomy COMPARISON:04/16/2020 FINDINGS: Patient is status post left thoracotomy. 2 left chest tubes remain in place. Right lung is hyperaerated but clear.. Impression: Stable appearance post left thoracotomy 2 left chest tubes remain in place
--- NOTE | 2020-04-18 11:10 | PN ---
DATE OF SERVICE: 04/18/2020 SUBJECTIVE: Ivan reports his pain is controlled. He has been up ambulating. Chest tube drainage was 150 mL. Chest x-ray looked good. Temperature max was 99.7 on 04/17/2020 at 1900. Labs this a.m., hemoglobin 10.9. BNP is 272. REVIEW OF SYSTEMS: Remainder of review of systems negative for any pertinent positives and negatives. OBJECTIVE: GENERAL: Ivan Walker is a pleasant 84-year-old male. He is up in his room. VITAL SIGNS: TPR at 0410 of 98.1, 59, 18, blood pressure 140/51. HEENT: Negative. NECK: Supple. HEART: Regular rate and rhythm. LUNGS: Clear. Chest tube is intact. EXTREMITIES: Without peripheral edema. ASSESSMENT: 1. Left thoracotomy. a. Left lower lobe lobectomy. b. Mediastinal lymph node dissection for left lower lobe mass. Date of surgery: 04/10/2020. Surgeon: Philipp Rooney MD. PLAN: 1. Have supplies ready at bedside for chest tube removal in a.m. 2. Chest x-ray, 2 views, at bedside series scheduled at 0400. 3. Check CBC, CMP, BNP, mag, and phos in a.m. Continue use of good pulmonary toilet. We will evaluate p.r.n. or in a.m. Tonya Bains PA-C /[id number]
--- NOTE | 2020-04-18 12:48 | CR ---
CHEST: Portable 04/18/2020 at 6:41 AM CLINICAL HISTORY:Partial left pneumonectomy COMPARISON:04/17/2020 FINDINGS: Patient is status post partial left pneumonectomy. 2 left chest tubes remain in place. Right lung is hyperaerated but clear. There is a linear density overlapping the upper cortex of the third rib. The this may represent a small pneumothorax. In retrospect this is likely present on prior studies. Impression: Status post left partial pneumonectomy 2 left chest tubes remain in place Probable minimal left apical pneumothorax
[2020-04-18] MEDS: Tamsulosin 0.4 MG Cap.ER PO SCH (21:04)
[2020-04-19] MEDS: HYDROmorphone 2 MG Tab PO PRN (02:49)
[2020-04-19] MEDS: Acetaminophen 500 MG Tab PO SCH ×4 (04:11→21:05)
--- NOTE | 2020-04-19 08:52 | CR ---
CHEST: 2 view CLINICAL HISTORY: Postop Left thoracotomy COMPARISON:04/19/2020 FINDINGS: Patient is status post left thoracotomy. 2 left chest tubes remain in place. There is a small curvilinear density of in the left apex felt to represent a small pneumothorax. This is similar to prior study. His overall emphysematous changes Impression: Status post left thoracotomy 2 left chest tubes remain in place Stable small left apical pneumothorax.
[2020-04-19] MEDS: Isosorbide Mononitrate 30 MG Tab.ER PO SCH (09:12)
[2020-04-19] MEDS: Aspirin 81 MG Tab.EC PO SCH (09:12)
[2020-04-19] MEDS: Clopidogrel 75 MG Tab PO SCH (09:12)
[2020-04-19] MEDS: Pantoprazole 40 MG Tab.CR PO SCH (09:13)
[2020-04-19] MEDS: Docusate Sodium 100 MG Cap PO SCH ×2 (09:13→21:05)
[2020-04-19] MEDS: FELODIPINE 10 MG PO SCH (09:13)
--- NOTE | 2020-04-19 11:55 | PN ---
DATE OF SERVICE: 04/19/2020 SUBJECTIVE: Ivan had his chest tube removed this morning. He tolerated the procedure well. Has no other concerns or questions. Pain is well managed with Dilaudid. OBJECTIVE: GENERAL: Ivan Walker is an 84-year-old male, alert and orientated. VITAL SIGNS: TPR at 0730, 97.4; 73; 16; blood pressure 141/58. HEENT: Negative. NECK: Supple. HEART: Regular rate and rhythm. LUNGS: Lung on the right is completely clear. Left, he does have some air exchange. EXTREMITIES: Without peripheral edema. ASSESSMENT: 1. Left thoracotomy. 2. Left lower lobe lobectomy. 3. Mediastinal lymph node dissection for left lower lobe mass. Date of surgery: 04/10/2020. Surgeon: Philipp Rooney MD. PLAN: 1. Chest x-ray PA and lateral in x-ray department tomorrow morning, 04/20/2020 at 0400. 2. Set up Oncology appointment for diagnosis of new lung cancer at [facility] on 04/26/2020 in a.m. 3. Continue good pulmonary toilet. 4. We will evaluate p.r.n. or in a.m. 5. Plan discharge in a.m. Tonya Bains PA-C /[id number]
[2020-04-19] MEDS: Tamsulosin 0.4 MG Cap.ER PO SCH (21:05)
[2020-04-20] MEDS: HYDROmorphone 2 MG Tab PO PRN (01:57)
[2020-04-20] MEDS: Acetaminophen 500 MG Tab PO SCH ×2 (04:38→08:47)
[2020-04-20 07:44] VITALS: BP 150/55; PULSE 65
[2020-04-20] MEDS: Docusate Sodium 100 MG Cap PO SCH (08:46)
[2020-04-20] MEDS: Clopidogrel 75 MG Tab PO SCH (08:46)
[2020-04-20] MEDS: FELODIPINE 10 MG PO SCH (08:46)
[2020-04-20] MEDS: Isosorbide Mononitrate 30 MG Tab.ER PO SCH (08:46)
[2020-04-20] MEDS: Aspirin 81 MG Tab.EC PO SCH (08:46)
[2020-04-20] MEDS: Pantoprazole 40 MG Tab.CR PO SCH (08:46)
--- NOTE | 2020-04-20 09:13 | CR ---
CHEST: 2 view CLINICAL HISTORY:Left thoracotomy COMPARISON:04/19/2020 FINDINGS: Patient is status post left thoracotomy. 2 left chest tubes been removed. There is a minimal apical pneumothorax unchanged from prior studies. Right lung is hyperaerated but clear. IMPRESSION: Status post left thoracotomy Left chest tubes been removed. Minimal stable left apical pneumothorax.
--- NOTE | 2020-04-20 13:35 | DISCH ---
ADMISSION DIAGNOSES: 1. Left lower lobe lung mass. 2. Cardiovascular disease. 3. Benign essential hypertension. 4. Cardiac left ventricular ejection fraction of 40% to 49%. 5. History of carotid angioplasty and history of ischemic cardiomyopathy. DISCHARGE DIAGNOSES: 1. Left thoracotomy. 2. Left lower lobe lobectomy. 3. Mediastinal lymph node dissection. Date of surgery 04/10/2020. Surgeon: Philipp Rooney MD. POSTOPERATIVE DIAGNOSES: Left lower lung lobe mass. HISTORY: Ivan Walker is an 84-year-old male who has a left lower lobe mass. After preoperative evaluation and discussion of possible risks and possible complications, he wished to proceed with surgical procedure. HOSPITAL COURSE: Ivan had a surgery on 04/10/2020. On 04/11/2020, he was stable. Chest x- ray showed significant hemothorax. He had a chest tube which was put to water seal, and due to the hemothorax, a tube was put to suction. He was hemodynamically stable. Hemoglobin did drop to 7.8. He did receive 2 units of packed red blood cells. Creatinine remained stable. Pain control was satisfactory and he was started on clear liquid diet. On 04/12/2020, afebrile. Vital signs stable. Alert. Chest tube continues to show an air leak. He did have some fluid in the bases of his lungs. Chest tube output was 900, less bloody, more serous. Urine output picked up. Hemoglobin 8.9 and he was given another unit of packed red blood cells. On 04/13/2020, he remained afebrile. Pain control was good. Chest tube output was 400, remains to show an air leak. He did have a bowel movement and was increased to a regular diet. On 04/14/2020, chest tube increased to 425. Question if it was accurately reported the 24 hours before. The air leak stopped at this point. Chest x-ray was satisfactory. Oral intake was adequate. Hemoglobin was up to 11.7. On 04/15/2020, Dunn catheter was removed, but then had to be replaced due to urinary retention. Vital signs all remained stable. On 04/16/2020, afebrile. Chest tube remained at 440. Chest x-ray continued to improve. IV was saline locked. Pain was managed with Dilaudid 4 mg every 4 hours p.r.n. On 04/17/2020, chest tube was 220. He was switched to a smaller chest tube box, and on 04/18/2020, chest tube drainage was right at 150, hemoglobin 10.9. He had his chest tube removed on 04/19/2020, tolerated procedure well. Chest x-ray looked good. On 04/20/2020, his pain was controlled, activity good, vital signs stable and he was able to be discharged to home without any complications. PHYSICAL EXAMINATION: GENERAL: Ivan Walker is an 84-year-old male. VITAL SIGNS: Height is 5 feet 10 inches, weight is 190 pounds. TPR at 0743; 98.3, 65, 18. Blood pressure 150/55. HEENT: Negative. NECK: Supple. HEART: Regular rate and rhythm. LUNGS: Right lung is clear. Left lung does have some air exchange, improving. Left thoracotomy staple line intact. Jackman will be removed prior to discharge today. Dressing over chest tube site is dry and intact. ABDOMEN: Negative. EXTREMITIES: Negative. NEUROLOGIC: Intact. PSYCHIATRIC: Mood and affect appropriate. DISPOSITION: Discharged to home. CONDITION: Stable and improving. FOLLOWUP APPOINTMENT: 1. With Philipp Rooney MD on 04/26/2020 at 0900. He is to present to the clinic at 0845 hours for chest x-ray PA and lateral. 2. ANA ROSA Short on 04/26/2020 at 1000, Oncology at [facility]. HOME MEDICATIONS: 1. Dilaudid 2 mg, take 2 to 4 mg every 4 hours p.r.n. pain, #40. 2. He is to resume home medication of Tylenol 1000 mg every 6 hours p.r.n. pain. 3. Aspirin 81 mg p.o. daily. 4. Dulcolax tabs 10 mg p.o. b.i.d. p.r.n. 5. Plavix 75 mg p.o. daily. 6. Colace 100 mg b.i.d. 7. Felodipine ER 10 mg, 1 before breakfast scheduled. 8. Protonix 40 mg b.i.d. 9. Zocor 20 mg at bedtime. 10.Nitroglycerin 0.4 mg sublingual as directed. 11.Mylanta maximum strength 15 mL every 6 hours p.r.n. 12.Imdur 15 mg p.o. daily. DIET: Usual diet as tolerated. Drink 8 to 10 glasses of water a day. ACTIVITY: No lifting greater than 10 pounds for 6 weeks. Driving: Do not drive for 1 week and while on pain medication. SHOWER/BATHING: May shower. Keep operative site clean and dry. Keep a gauze dressing over chest tube site until it stops draining. Notify provider if any fever, increased pain, swelling, redness, drainage, nausea or vomiting. Use incentive spirometer 10 times every hour while awake for 1 week.
== END 2020-04-20 09:15 | disposition home or self-care (01) | DRG 164 ==
LOC: JP.MS 08:18 → JP.SDS 08:18 → EDSTATUS 10:00 → JP.ICU 13:45 → JP.MS 04-14 09:30
PROVIDERS: ADMIT Surgery; ATTEND Surgery
PROC: 0BTJ0ZZ Resection of Left Lower Lung Lobe, Open Approach (ICD-10-PCS; principal; 2020-04-10)
PROC: 07B70ZZ Excision of Thorax Lymphatic, Open Approach (ICD-10-PCS; 2020-04-10)
DX: C34.32 Malignant neoplasm of lower lobe, left bronchus or lung (principal); J94.2 Hemothorax; I10 Essential (primary) hypertension; E78.5 Hyperlipidemia, unspecified; Z88.2 Allergy status to sulfonamides; Z79.899 Other long term (current) drug therapy
CPT/HCPCS: 36415; 36430; 36600; 51702; 51798; 71045; 71045-26; 71046; 71046-26; 80053; 82378; 82803; 82962; 83735; 83880; 84100; 85018; 85025; 85027; 86850; 86900; 86901; 86920; 86922; 88305; 88309; 88312; 88331; 88332; 93005; 94762; 97110-GP; 97116-GP; 97161-GP; A9270-GY; C9113; J0330; J0690; J1100; J1170; J1644; J1940; J2001; J2185; J2405; J2704; J2710; J3010; J3410; J3475; J3490; J7121; P9016

== ENCOUNTER 2020-10-12 10:32 | Inpatient (IN) | payer MEDICARE, OTHER ==
[2020-10-12] MEDS ORDERED: Acetaminophen 325 MG Tab PO PRN (11:17)
--- NOTE | 2020-10-12 11:20 | EDM.PDOC ---
ED HPI GENERAL MEDICAL PROBLEM - General Chief Complaint: Respiratory Problem Stated Complaint: COVID SYMPTOMS Time Seen by Provider: 10/12/20 10:55 Source of Information: Reports: Patient, RN Notes Reviewed History Limitations: Reports: No Limitations - History of Present Illness INITIAL COMMENTS - FREE TEXT/NARRATIVE: 84-year-old male presents emergency department a complaint of weakness fever feeling ill for about the past 4 days he was tested for Covid 19 on Friday results available today states that it is negative however he is very symptomatic - Related Data Allergies Allergy/AdvReac Type Severity Reaction Status Date / Time naproxen sodium [From Aleve] Allergy Intermediate Other Verified 04/10/20 15:35 Sulfa (Sulfonamide Allergy Other Verified 04/10/20 09:24 Antibiotics) Home Meds: Home Meds Aspirin [Halfprin] 81 mg PO DAILY 03/24/16 [History] Simvastatin [Zocor] 20 mg PO BEDTIME 03/24/16 [History] Clopidogrel Bisulfate [Clopidogrel] 75 mg PO DAILY 01/12/20 [History] Mag Hydrox/Aluminum Hyd/Simeth [Mylanta Maximum Strength Liq] 15 ml PO Q6H PRN 01/12/20 [History] Nitroglycerin 0.4 mg SL ASDIRECTED 01/27/20 [History] Acetaminophen 500 mg PO BID PRN 03/22/20 [History] Pantoprazole Sodium [Protonix] 40 mg PO BID 03/22/20 [History] Aspirin 1 tab PO DAILY 10/12/20 [History] Cholecalciferol (Vitamin D3) [Cholecalciferol] 1 dose PO ASDIRECTED 10/12/20 [History] Cyanocobalamin (Vitamin B-12) [Vitamin B-12] 8,000 mg PO DAILY 10/12/20 [History] Past Medical History HEENT History: Reports: Cataract, Impaired Vision Other HEENT History: wears glasses Cardiovascular History: Reports: CAD, High Cholesterol, Hypertension, Stents, Syncope, Other (See Below) Other Cardiovascular History: Hospitialized at [facility] June 13 to .for syncopy Gastrointestinal History: Reports: GERD Genitourinary History: Reports: Renal Calculus Musculoskeletal History: Reports: Back Pain, Chronic Hematologic History: Reports: Anticoagulation Therapy Immunologic History: Reports: None Oncologic (Cancer) History: Reports: Lung Dermatologic History: Reports: None - Infectious Disease History Infectious Disease History: Reports: Chicken Pox, Measles, Mumps - Past Surgical History Head Surgeries/Procedures: Reports: None HEENT Surgical History: Reports: Cataract Surgery Cardiovascular Surgical History: Reports: Carotid Endarterectomy, Carotid Stents Other Cardiovascular Surgeries/Procedures: cardiac catherization, coronary angiography Respiratory Surgical History: Reports: None, Lung Biopsies, Lung Resection GI Surgical History: Reports: Cholecystectomy, Colonoscopy, EGD Male Surgical History: Reports: Vasectomy Endocrine Surgical History: Reports: None Neurological Surgical History: Reports: None Musculoskeletal Surgical History: Reports: None Dermatological Surgical History: Reports: None Social & Family History - Family History Family Medical History: No Pertinent Family History - Tobacco Use Tobacco Use Status *Q: Unknown Ever Used Tobacco - Caffeine Use Caffeine Use: Reports: Coffee Caffeine Use Comment: couple cups of coffee per day, one soda in afternoon - Living Situation & Occupation Living situation: Reports: Occupation: Retired (lives with [employer], [address] [place] of [place], [place]. near [facility]) ED ROS GENERAL - Review of Systems Review Of Systems: See Below Constitutional: Reports: Fever, Chills, Weakness HEENT: Reports: No Symptoms Respiratory: Reports: Shortness of Breath Cardiovascular: Reports: Dyspnea on Exertion GI/Abdominal: Reports: No Symptoms ED EXAM, GENERAL - Physical Exam Exam: See Below Exam Limited By: No Limitations General Appearance: Alert, WD/WN, Mild Distress Respiratory/Chest: No Respiratory Distress, Lungs Clear, Normal Breath Sounds, No Accessory Muscle Use, Chest Non-Tender Cardiovascular: Regular Rate, Rhythm, No Murmur GI/Abdominal: Soft, Non-Tender Course - Vital Signs Last Recorded V/S: Last Vital Signs Temp 95.5 F L 10/12/20 10:36 Pulse 73 10/12/20 17:02 Resp 18 10/12/20 10:36 BP 131/61 10/12/20 17:02 Pulse Ox 86 L 10/12/20 17:02 - Orders/Labs/Meds Orders: Active Orders 24 hr Category Date Time Status CORONAVIRUS COVID-19, [facility] Stat Lab 10/12/20 14:37 Ordered UA W/MICROSCOPIC [URIN] Urgent Lab 10/12/20 17:18 Ordered Acetaminophen [TylenoL] Med 10/12/20 11:17 Active 650 mg PO Q4H PRN Iopamidol [Isovue-370 (76%)] Med 10/12/20 16:30 Active 50 ml IV . DIRECTED Sodium Chloride 0.9% [Normal Saline] 89 ml Med 10/12/20 16:30 Active IV ASDIRECTED cefTRIAXone [Rocephin] 1 gm Med 10/12/20 15:00 Active Sodium Chloride 0.9% [Normal Saline] 50 ml IV Q24H Isolation [COMM] Routine Oth 10/12/20 11:17 Ordered Isolation [COMM] Stat Oth 10/12/20 11:17 Ordered Medication Orders Acetaminophen (Tylenol) 650 mg PO Q4H PRN PRN Reason: Fever Greater Than 101 Ceftriaxone Sodium 1 gm/ (Sodium Chloride) 50 mls @ 100 mls/hr IV Q24H [facility] Last Admin: 10/12/20 15:00 Dose: Not Given Documented by: Admin: 10/12/20 14:50 Dose: 100 mls/hr Documented by: GODFREY Sodium Chloride (Normal Saline) 89 mls @ 3 mls/sec IV ASDIRECTED NORAH Last Admin: 10/12/20 16:50 Dose: 4 mls/sec Documented by: CINDY Iopamidol (Isovue-370 (76%)) 50 ml IV . DIRECTED [facility] Last Admin: 10/12/20 16:50 Dose: 50 ml Documented by: CINDY Labs: Laboratory Tests 10/12/20 10/12/20 10/12/20 Range/Units 11:17 11:48 11:48 WBC (4.5-11.0) K/uL RBC (4.30-5.90) M/uL Hgb (12.0-15.0) g/dL Hct (40.0-54.0) % MCV (80-98) fL MCH (27-31) pg MCHC (32-36) % Plt Count (150-400) K/uL Neut % (Auto) (36-66) % Lymph % (Auto) (24-44) % [place] % (Auto) (2-6) % Eos % (Auto) (2-4) % Baso % (Auto) (0-1) % PT 10.7 (9.5-12.0) sec INR 0.98 (0.80-1.20) D-Dimer, Quantitative (0.0-500.0) ng/mL ABG Hemoglobin 13.8 (13.5-18.0) g/dL ABG Oxyhemoglobin 60.4 % ABG Carboxyhemoglobin 1.1 (0.0-1.6) % ABG Methemoglobin 0.9 % VBG pH 7.418 (7.350-7.450) VBG pCO2 37.7 mm/Hg VBG pO2 34.7 mm/Hg VBG HCO3 23.9 mmol/L VBG Total CO2 21.3 mmol/L VBG O2 Saturation 61.6 VBG O2 Content 11.6 %vol VBG Base Excess 0.1 mm/L O2 Delivery Device Room air Sodium (140-148) mmol/L Potassium (3.6-5.2) mmol/L Chloride (100-108) mmol/L Carbon Dioxide (21-32) mmol/L Anion Gap (5.0-14.0) mmol/L BUN (7-18) mg/dL Creatinine (0.8-1.3) mg/dL Est Cr Clr Drug Dosing mL/min Estimated GFR (MDRD) (>60) Glucose (74-106) mg/dL Lactic Acid (0.4-2.0) mmol/L Calcium (8.5-10.1) mg/dL Ferritin > 76359 H (8-388) ng/ml Total Bilirubin (0.2-1.0) mg/dL Direct Bilirubin (0.0-0.2) mg/dL Indirect Bilirubin AST (15-37) U/L ALT (12-78) U/L Alkaline Phosphatase (46-116) U/L Lactate Dehydrogenase (85-227) U/L Troponin I (0.000-0.056) ng/mL C-Reactive Protein (0.0-0.3) mg/dL Total Protein (6.4-8.2) g/dL Albumin (3.4-5.0) g/dL Globulin (2.3-3.5) g/dL Albumin/Globulin Ratio (1.2-2.2) Procalcitonin ng/mL SARS-CoV-2 RNA ([facility]) (NEGATIVE) SARS CoV-2 RNA Rapid [facility] 10/12/20 10/12/20 10/12/20 Range/Units 11:48 11:48 11:48 WBC 2.1 L (4.5-11.0) K/uL RBC 4.60 (4.30-5.90) M/uL Hgb 13.4 D (12.0-15.0) g/dL Hct 39.9 L (40.0-54.0) % MCV 87 (80-98) fL MCH 29 (27-31) pg MCHC 34 (32-36) % Plt Count 37 L (150-400) K/uL Neut % (Auto) 82 H (36-66) % Lymph % (Auto) 10 L (24-44) % [place] % (Auto) 5 (2-6) % Eos % (Auto) 1 L (2-4) % Baso % (Auto) 2 H (0-1) % PT (9.5-12.0) sec INR (0.80-1.20) D-Dimer, Quantitative > 30007.00 H (0.0-500.0) ng/mL ABG Hemoglobin (13.5-18.0) g/dL ABG Oxyhemoglobin % ABG Carboxyhemoglobin (0.0-1.6) % ABG Methemoglobin % VBG pH (7.350-7.450) VBG pCO2 mm/Hg VBG pO2 mm/Hg VBG HCO3 mmol/L VBG Total CO2 mmol/L VBG O2 Saturation VBG O2 Content %vol VBG Base Excess mm/L O2 Delivery Device Sodium 133 L (140-148) mmol/L Potassium 3.9 (3.6-5.2) mmol/L Chloride 99 L (100-108) mmol/L Carbon Dioxide 23 (21-32) mmol/L Anion Gap 14.9 H (5.0-14.0) mmol/L BUN 48 H D (7-18) mg/dL Creatinine 2.1 H D (0.8-1.3) mg/dL Est Cr Clr Drug Dosing 24.97 mL/min Estimated GFR (MDRD) 30 L (>60) Glucose 122 H (74-106) mg/dL Lactic Acid (0.4-2.0) mmol/L Calcium 8.3 L (8.5-10.1) mg/dL Ferritin (8-388) ng/ml Total Bilirubin 0.7 (0.2-1.0) mg/dL Direct Bilirubin 0.45 H (0.0-0.2) mg/dL Indirect Bilirubin 0.25 AST 158 H D (15-37) U/L ALT 49 (12-78) U/L Alkaline Phosphatase 96 (46-116) U/L Lactate Dehydrogenase 859 H (85-227) U/L Troponin I (0.000-0.056) ng/mL C-Reactive Protein 16.29 H (0.0-0.3) mg/dL Total Protein 5.9 L (6.4-8.2) g/dL Albumin 3.0 L (3.4-5.0) g/dL Globulin 2.9 (2.3-3.5) g/dL Albumin/Globulin Ratio 1.0 L (1.2-2.2) Procalcitonin ng/mL SARS-CoV-2 RNA ([facility]) (NEGATIVE) SARS CoV-2 RNA Rapid [facility] 10/12/20 10/12/20 10/12/20 Range/Units 11:48 11:48 12:03 WBC (4.5-11.0) K/uL RBC (4.30-5.90) M/uL Hgb (12.0-15.0) g/dL Hct (40.0-54.0) % MCV (80-98) fL MCH (27-31) pg MCHC (32-36) % Plt Count (150-400) K/uL Neut % (Auto) (36-66) % Lymph % (Auto) (24-44) % [place] % (Auto) (2-6) % Eos % (Auto) (2-4) % Baso % (Auto) (0-1) % PT (9.5-12.0) sec INR (0.80-1.20) D-Dimer, Quantitative (0.0-500.0) ng/mL ABG Hemoglobin (13.5-18.0) g/dL ABG Oxyhemoglobin % ABG Carboxyhemoglobin (0.0-1.6) % ABG Methemoglobin % VBG pH (7.350-7.450) VBG pCO2 mm/Hg VBG pO2 mm/Hg VBG HCO3 mmol/L VBG Total CO2 mmol/L VBG O2 Saturation VBG O2 Content %vol VBG Base Excess mm/L O2 Delivery Device Sodium (140-148) mmol/L Potassium (3.6-5.2) mmol/L Chloride (100-108) mmol/L Carbon Dioxide (21-32) mmol/L Anion Gap (5.0-14.0) mmol/L BUN (7-18) mg/dL Creatinine (0.8-1.3) mg/dL Est Cr Clr Drug Dosing mL/min Estimated GFR (MDRD) (>60) Glucose (74-106) mg/dL Lactic Acid 1.7 (0.4-2.0) mmol/L Calcium (8.5-10.1) mg/dL Ferritin (8-388) ng/ml Total Bilirubin (0.2-1.0) mg/dL Direct Bilirubin (0.0-0.2) mg/dL Indirect Bilirubin AST (15-37) U/L ALT (12-78) U/L Alkaline Phosphatase (46-116) U/L Lactate Dehydrogenase (85-227) U/L Troponin I (0.000-0.056) ng/mL C-Reactive Protein (0.0-0.3) mg/dL Total Protein (6.4-8.2) g/dL Albumin (3.4-5.0) g/dL Globulin (2.3-3.5) g/dL Albumin/Globulin Ratio (1.2-2.2) Procalcitonin 31.14 H* ng/mL SARS-CoV-2 RNA ([facility]) (NEGATIVE) SARS CoV-2 RNA Rapid [facility] Negative 10/12/20 10/12/20 10/12/20 Range/Units 14:00 14:43 15:55 WBC (4.5-11.0) K/uL RBC (4.30-5.90) M/uL Hgb (12.0-15.0) g/dL Hct (40.0-54.0) % MCV (80-98) fL MCH (27-31) pg MCHC (32-36) % Plt Count (150-400) K/uL Neut % (Auto) (36-66) % Lymph % (Auto) (24-44) % [place] % (Auto) (2-6) % Eos % (Auto) (2-4) % Baso % (Auto) (0-1) % PT (9.5-12.0) sec INR (0.80-1.20) D-Dimer, Quantitative (0.0-500.0) ng/mL ABG Hemoglobin (13.5-18.0) g/dL ABG Oxyhemoglobin % ABG Carboxyhemoglobin (0.0-1.6) % ABG Methemoglobin % VBG pH (7.350-7.450) VBG pCO2 mm/Hg VBG pO2 mm/Hg VBG HCO3 mmol/L VBG Total CO2 mmol/L VBG O2 Saturation VBG O2 Content %vol VBG Base Excess mm/L O2 Delivery Device Sodium 134 L (140-148) mmol/L Potassium 3.5 L (3.6-5.2) mmol/L Chloride 100 (100-108) mmol/L Carbon Dioxide 24 (21-32) mmol/L Anion Gap 13.5 (5.0-14.0) mmol/L BUN 44 H (7-18) mg/dL Creatinine 1.6 H (0.8-1.3) mg/dL Est Cr Clr Drug Dosing 32.77 mL/min Estimated GFR (MDRD) 41 L (>60) Glucose 112 H (74-106) mg/dL Lactic Acid (0.4-2.0) mmol/L Calcium 8.0 L (8.5-10.1) mg/dL Ferritin (8-388) ng/ml Total Bilirubin (0.2-1.0) mg/dL Direct Bilirubin (0.0-0.2) mg/dL Indirect Bilirubin AST (15-37) U/L ALT (12-78) U/L Alkaline Phosphatase (46-116) U/L Lactate Dehydrogenase (85-227) U/L Troponin I 0.199 H* (0.000-0.056) ng/mL C-Reactive Protein (0.0-0.3) mg/dL Total Protein (6.4-8.2) g/dL Albumin (3.4-5.0) g/dL Globulin (2.3-3.5) g/dL Albumin/Globulin Ratio (1.2-2.2) Procalcitonin ng/mL SARS-CoV-2 RNA ([facility]) Negative (NEGATIVE) SARS CoV-2 RNA Rapid [facility] Meds: Medications Generic Name Dose Route Start Last Admin Trade Name Freq PRN Reason Stop Dose Admin Acetaminophen 650 mg 11/19/20 11:17 Tylenol PO Q4H PRN Fever Greater Than 101 Ceftriaxone Sodium 1 gm/ 50 mls @ 100 mls/hr 10/12/20 15:00 10/12/20 15:00 Sodium Chloride IV Not Given Q24H NORAH Sodium Chloride 89 mls @ 3 mls/sec 10/12/20 16:30 10/12/20 16:50 Normal Saline IV 4 mls/sec ASDIRECTED NORAH Administration Iopamidol 50 ml 10/12/20 16:30 10/12/20 16:50 Isovue-370 (76%) IV 50 ml . DIRECTED NORAH Administration Discontinued Medications Generic Name Dose Route Start Last Admin Trade Name Freq PRN Reason Stop Dose Admin Ceftriaxone Sodium 1 gm/ 50 mls @ 100 mls/hr 10/12/20 13:45 10/12/20 15:00 Sodium Chloride IV Not Given Q24H NORAH Departure - Departure Time of Disposition: 18:13 Disposition: Admitted As Inpatient 67 Condition: Poor Clinical Impression: Pneumonia Qualifiers: Pneumonia type: due to unspecified organism Laterality: unspecified laterality Lung location: unspecified part of lung Qualified Code(s): J18.9 - Pneumonia, unspecified organism - Discharge Information Referrals: Dayron Waterman MD [Primary Care Provider] - Forms: ED Department Discharge Sepsis Event Note (ED) - Evaluation Sepsis Screening Result: No Definite Risk - Focused Exam Vital Signs: Vital Signs Temp Pulse Resp BP Pulse Ox 10/12/20 17:02 73 131/61 86 L 10/12/20 13:30 60 107/44 L 94 L 10/12/20 13:00 62 98/43 L 10/12/20 11:19 62 100/41 L 87 L 10/12/20 10:36 95.5 F L 75 18 110/45 L 91 L 10/12/20 10:35 95.5 F L 75 18 110/45 L 91 L - My Orders Last 24 Hours: My Active Orders 10/12/20 11:17 Acetaminophen [TylenoL] 650 mg PO Q4H PRN Isolation [COMM] Routine Isolation [COMM] Stat 10/12/20 14:37 CORONAVIRUS COVID-19, [facility] Stat 10/12/20 15:00 cefTRIAXone [Rocephin] 1 gm Sodium Chloride 0.9% [Normal Saline] 50 ml IV Q24H 10/12/20 16:30 Iopamidol [Isovue-370 (76%)] 50 ml IV . DIRECTED Sodium Chloride 0.9% [Normal Saline] 89 ml IV ASDIRECTED 10/12/20 17:18 UA W/MICROSCOPIC [URIN] Urgent - Assessment/Plan Last 24 Hours: My Active Orders 10/12/20 11:17 Acetaminophen [TylenoL] 650 mg PO Q4H PRN Isolation [COMM] Routine Isolation [COMM] Stat 10/12/20 14:37 CORONAVIRUS COVID-19, [facility]NA Stat 10/12/20 15:00 cefTRIAXone [Rocephin] 1 gm Sodium Chloride 0.9% [Normal Saline] 50 ml IV Q24H 10/12/20 16:30 Iopamidol [Isovue-370 (76%)] 50 ml IV . DIRECTED Sodium Chloride 0.9% [Normal Saline] 89 ml IV ASDIRECTED 10/12/20 17:18 UA W/MICROSCOPIC [URIN] Urgent Plan: Assessment Acuity = acute Site and laterality = pneumonia complicated patient with severe end-stage COPD Etiology = probable bacterial cause Manifestations = dyspnea Location of injury = Home Lab values = WBC low at 2.1 consistent with leukopenia platelets low at 37 consistent with thrombocytopenia D-dimer greater than 10,000 of unclear etiology VBG pH 7.43 sodium low at 134 consistent hyponatremia potassium low at 3.5 consistent with hypokalemia creatinine elevated 1.6 consistent with acute renal failure stage G3 B lactic acid normal at 1.7 ferritin elevated at greater than 20,000 LDH elevated 859 troponin elevated 0.199 consistent with inflammatory type marker CRP elevated 16.3 procalcitonin elevated 31.4 Covid test was negative x2 CT scan describes a small pneumothorax no pulmonary embolism and severe COPD Plan Call discussed case hospitalist on-call at 1810 kindly agreed to come and evaluate the patient in the emergency department for admission urinalysis pending This note was dictated using [employer] voice recognition software please call with any questions on syntax or grammar.
--- NOTE | 2020-10-12 12:45 | CR ---
CHEST: Portable 10/12/2020 11:38 AM CLINICAL HISTORY:Respiratory failure COMPARISON:March 2020 FINDINGS: Patient is status post partial left pneumonectomy. Remaining lungs are generally hyperaerated. There is some patchy density in both infrahilar regions. Some of this is chronic. There are atherosclerotic changes in the aorta. IMPRESSION: Previous left partial pneumonectomy COPD Patchy infrahilar densities bilaterally may represent some superimposed pneumonitis or pneumonia If clinical symptomatology persists or worsens a repeat exam is recommended.
[2020-10-12] MEDS ORDERED: cefTRIAXone 1 GM in Sodium Chloride 0.9% 50 ML IV SCH (13:45)
[2020-10-12] MEDS: cefTRIAXone 1 GM in Sodium Chloride 0.9% 50 ML IV SCH ×2 (14:50→15:00)
[2020-10-12] MEDS ORDERED: Iopamidol 755 Mg/ML 100 ML Bottle IV SCH (16:30)
--- NOTE | 2020-10-12 17:42 | CRLCT ---
INDICATION: Dyspnea COMPARISON: September 19, 2020 TECHNIQUE: : CT examination of the chest was performed with the uneventful intravenous administration of 5 0 cc of Isovue 370 while thin axial sections were obtained from above the apices of the lungs to the lung bases. Please note that all CT scans at this facility use dose modulation, iterative reconstruction, and/or weight-based dosing when appropriate to reduce radiation dose to as low as reasonably achievable. FINDINGS: : HEART and MEDIASTINUM: Heart size is top normal. There are postoperative changes of the left hilum related to partial left lung resection. The appearance of the heart and mediastinum is unchanged. No adenopathy or mass PULMONARY ARTERIAL CIRCULATION: There is no visible intraluminal filling defect to suggest pulmonary embolus. LUNGS: Background of severe centrilobular and paraseptal emphysema. Right upper lobe granuloma. Left base findings probably largely related postoperative scarring and atelectasis. There is no convincing focal finding in the lungs. It should be noted that diffuse lung disease is like COVID are sometimes difficult to visualize in lungs that are severely emphysematous. PLEURAL SPACES: The right pleural space is normal. There is mild circumferential pleural thickening and loculated pleural fluid which was present on September 19, 2020 and is probably related to surgery and treatment of the patient`s malignancy. However, there is a small diffuse pneumothorax scattered throughout the left pleural space which is new. This is most pronounced at the left lateral base. VISUALIZED UPPER ABDOMEN: The limited visualized upper abdominal structures appear normal. Incidental right renal cyst OSSEOUS STRUCTURES: Age-appropriate appearance. No acute fracture or destructive process. TUBES and LINES: None. IMPRESSION: 1. There is no evidence of pulmonary embolus. 2. Postoperative changes on the left consisting of partial left lung resection and chronic left pleural thickening and small loculated pleural fluid collection. 3. There is a small pneumothorax identified that is diffusely spread throughout the left pleural thickening and left pleural fluid. This is new since the prior study. 4. Severe emphysema. Aside from left basilar atelectasis and other postoperative changes on the left, there is no definite acute focal lung finding Please note that all CT scans at this facility use dose modulation, iterative reconstruction, and/or weight-based dosing when appropriate to reduce radiation dose to as low as reasonably achievable. Dictated by Philipp Cavazos MD @ Oct 12 2020 5:25PM Signed by Dr. Philipp Cavazos @ Oct 12 2020 5:40PM
[2020-10-12] MEDS: Levofloxacin/Dextrose 5%-Water 750 MG in Premix Bag 1 BAG IV SCH (19:25)
[2020-10-12] MEDS ORDERED: Nitroglycerin 0.4 MG Tab.SL SL PRN (19:45)
--- NOTE | 2020-10-12 19:54 | PCM.HP.2 ---
H&P History of Present Illness - General Date of Service: 10/12/20 Admit Problem/Dx: Admission Diagnosis/Problem Admission Diagnosis/Problem Pneumonia Source of Information: Patient, Family ( [facility]) History Limitations: Reports: Respiratory Distress (shortness of breath and hard of hearing.) - History of Present Illness Initial Comments - Free Text/Narative: chief complaint: flu like illness This is a 84 year old male in ER with his , reports has been sick since Friday with flu-like symptoms, fever temp 100.8, body aches, shortness of breath, no appetite - has not eating all day. decreased urination. weakness reports he has lung cancer this summer, had surgery to removed a spot on lung and [address] Rooney, Surgeon on February 2020, last radiation treatment was June 2020. was a smoker of 60 years but quit 8 years ago. Onset of Symptoms: Reports: Gradual Symptom Onset Date: 10/08/20 Duration of Symptoms: Reports: Day(s):, Getting Worse Location: Reports: Chest, Generalized Quality: Reports: Other (flu like illness) Severity: Moderate Improves with: Reports: None Worsens with: Reports: Movement Context: Reports: Other (past history of recent lung cancer ) Associated Symptoms: Reports: Cough, Fever/Chills (temp 101.8 in ER), Loss of Appetite, Shortness of Breath, Weakness - Related Data Allergies/Adverse Reactions: Allergies Allergy/AdvReac Type Severity Reaction Status Date / Time naproxen sodium [From Aleve] Allergy Intermediate Other Verified 04/10/20 15:35 Sulfa (Sulfonamide Allergy Other Verified 04/10/20 09:24 Antibiotics) Home Medications: Home Meds Aspirin [Halfprin] 81 mg PO DAILY 03/24/16 [History] Simvastatin [Zocor] 20 mg PO BEDTIME 03/24/16 [History] Clopidogrel Bisulfate [Clopidogrel] 75 mg PO DAILY 01/12/20 [History] Mag Hydrox/Aluminum Hyd/Simeth [Mylanta Maximum Strength Liq] 15 ml PO Q6H PRN 01/12/20 [History] Nitroglycerin 0.4 mg SL ASDIRECTED 01/27/20 [History] Acetaminophen 500 mg PO BID PRN 03/22/20 [History] Pantoprazole Sodium [Protonix] 40 mg PO BID 03/22/20 [History] Aspirin 1 tab PO DAILY 10/12/20 [History] Cholecalciferol (Vitamin D3) [Cholecalciferol] 1 dose PO ASDIRECTED 10/12/20 [History] Cyanocobalamin (Vitamin B-12) [Vitamin B-12] 8,000 mg PO DAILY 10/12/20 [History] Past Medical History HEENT History: Reports: Cataract, Impaired Vision Other HEENT History: wears glasses Cardiovascular History: Reports: CAD, High Cholesterol, Hypertension, Stents, Syncope, Other (See Below) Other Cardiovascular History: [facility]ialized at [facility] June 13 to .for syncopy Respiratory History: Reports: None Gastrointestinal History: Reports: GERD Genitourinary History: Reports: Renal Calculus Musculoskeletal History: Reports: Back Pain, Chronic Neurological History: Reports: None Psychiatric History: Reports: None Endocrine/Metabolic History: Reports: None Hematologic History: Reports: Anticoagulation Therapy Immunologic History: Reports: None Oncologic (Cancer) History: Reports: Lung Dermatologic History: Reports: None - Infectious Disease History Infectious Disease History: Reports: Chicken Pox, Measles, Mumps - Past Surgical History Head Surgeries/Procedures: Reports: None HEENT Surgical History: Reports: Cataract Surgery Cardiovascular Surgical History: Reports: Carotid Endarterectomy, Carotid Stents Other Cardiovascular Surgeries/Procedures: cardiac catherization, coronary angiography Respiratory Surgical History: Reports: None, Lung Biopsies, Lung Resection GI Surgical History: Reports: Cholecystectomy, Colonoscopy, EGD Male Surgical History: Reports: Vasectomy Endocrine Surgical History: Reports: None Neurological Surgical History: Reports: None Musculoskeletal Surgical History: Reports: None Dermatological Surgical History: Reports: None Social & Family History - Family History Family Medical History: No Pertinent Family History - Tobacco Use Tobacco Use Status *Q: Unknown Ever Used Tobacco - Caffeine Use Caffeine Use: Reports: Coffee Caffeine Use Comment: couple cups of coffee per day, one soda in afternoon - Living Situation & Occupation Living situation: Reports: Occupation: Retired (lives with [employer], [place] of [place], [place]. near [place], [place].) H&P Review of Systems - Review of Systems: Review Of Systems: See Below General: Reports: Fever, Chills, Malaise, Weakness, Fatigue, Decreased Appetite HEENT: Reports: Glasses, Other (natural teeth) Pulmonary: Reports: Shortness of Breath, Cough, Sputum (clear thick) Cardiovascular: Reports: Other (reports 2 stents x 2 with AR, has intermittent chest pain which in "normal" for Mr. Walker) Gastrointestinal: Reports: Abdominal Pain, Diarrhea (report normal color, no black or tarry stools noted), Decreased Appetite, Nausea Genitourinary: Reports: Other (has voided only once today) Musculoskeletal: Reports: Other (bodyaches and chills.) Skin: Reports: Bruising (bruises easily, hand with dark bruising.) Neurological: Reports: Weakness ( reports has been weak since the start of illness, otherwise before illness walked without assistance.) Hematologic/Lymphatic: Reports: Easy Bleeding, Easy Bruising Immunologic: Reports: No Symptoms Exam - Exam Exam: See Below - Vital Signs Vital Signs: Last Vital Signs Temp 37.5 C 10/12/20 19:25 Pulse 73 10/12/20 17:02 Resp 18 10/12/20 10:36 BP 131/61 10/12/20 17:02 Pulse Ox 86 L 10/12/20 17:02 Weight: 66.224 kg - Exam Quality Assessment: Supplemental Oxygen (oxygen saturation on room air 83%, appl ied oxygen nasal cannula at 2 liter, increase to 92%) General: Alert, Moderate Distress (thin, frail, elderly male, appears ill. able to speak in full sentence but is hard of hearing even with bilateral hearing aides.) HEENT: PERRLA, EOMI, Glasses, Other (sclera injected, mouth is dry. bilateral hearing aides are in place. ) Neck: Supple, Trachea Midline Lungs: Decreased Breath Sounds Cardiovascular: Regular Rate, Regular Rhythm, Normal S1, Normal S2 GI/Abdominal Exam: Normal Bowel Sounds, Soft, Tender (Male) Exam: Rash (scrotal ) Rectal (Males) Exam: Normal Exam, Deferred Back Exam: Normal Inspection, Full Range of Motion Extremities: Normal Inspection, Normal Range of Motion, Non-Tender, No Pedal Edema, Normal Capillary Refill Peripheral Pulses: 2+: Brachial (L), Brachial (R), Dorsalis Pedis (L), Dorsalis Pedis (R) Skin: Warm (skin is red and warm to touch-fever of 101.8 noted), Dry, Intact, Ecchymosis (hands) Neurological: Strength Equal Bilateral (weakness noted), Normal Speech, Normal Tone Neuro Extensive - Mental Status: Alert, Oriented x3, Normal Mood/Affect, Normal Cognition Psychiatric: Alert, Normal Affect, Normal Mood - Patient Data Lab Results Last 24 hrs: Laboratory Results - last 24 hr 10/12/20 10/12/20 10/12/20 Range/Units 11:17 11:48 11:48 WBC (4.5-11.0) K/uL RBC (4.30-5.90) M/uL Hgb (12.0-15.0) g/dL Hct (40.0-54.0) % MCV (80-98) fL MCH (27-31) pg MCHC (32-36) % Plt Count (150-400) K/uL Neut % (Auto) (36-66) % Lymph % (Auto) (24-44) % [place] % (Auto) (2-6) % Eos % (Auto) (2-4) % Baso % (Auto) (0-1) % PT 10.7 (9.5-12.0) sec INR 0.98 (0.80-1.20) D-Dimer, Quantitative (0.0-500.0) ng/mL ABG Hemoglobin 13.8 (13.5-18.0) g/dL ABG Oxyhemoglobin 60.4 % ABG Carboxyhemoglobin 1.1 (0.0-1.6) % ABG Methemoglobin 0.9 % VBG pH 7.418 (7.350-7.450) VBG pCO2 37.7 mm/Hg VBG pO2 34.7 mm/Hg VBG HCO3 23.9 mmol/L VBG Total CO2 21.3 mmol/L VBG O2 Saturation 61.6 VBG O2 Content 11.6 %vol VBG Base Excess 0.1 mm/L O2 Delivery Device Room air Sodium (140-148) mmol/L Potassium (3.6-5.2) mmol/L Chloride (100-108) mmol/L Carbon Dioxide (21-32) mmol/L Anion Gap (5.0-14.0) mmol/L BUN (7-18) mg/dL Creatinine (0.8-1.3) mg/dL Est Cr Clr Drug Dosing mL/min Estimated GFR (MDRD) (>60) Glucose (74-106) mg/dL Lactic Acid (0.4-2.0) mmol/L Calcium (8.5-10.1) mg/dL Ferritin > 09438 H (8-388) ng/ml Total Bilirubin (0.2-1.0) mg/dL Direct Bilirubin (0.0-0.2) mg/dL Indirect Bilirubin AST (15-37) U/L ALT (12-78) U/L Alkaline Phosphatase (46-116) U/L Lactate Dehydrogenase (85-227) U/L Troponin I (0.000-0.056) ng/mL C-Reactive Protein (0.0-0.3) mg/dL Total Protein (6.4-8.2) g/dL Albumin (3.4-5.0) g/dL Globulin (2.3-3.5) g/dL Albumin/Globulin Ratio (1.2-2.2) Procalcitonin ng/mL Urine Color (YELLOW) Urine Appearance (CLEAR) Urine pH (5.0-8.0) Ur Specific [place] (1.008-1.030) Urine Protein (NEGATIVE) mg/dL Urine Glucose (UA) (NEGATIVE) mg/dL Urine Ketones (NEGATIVE) mg/dL Urine Occult Blood (NEGATIVE) Urine Nitrite (NEGATIVE) Urine Bilirubin (NEGATIVE) Urine Urobilinogen (0.2-1.0) EU/dL Ur Leukocyte Esterase (NEGATIVE) Urine RBC (0-5) Urine WBC (0-5) Ur Epithelial Cells Amorphous Sediment Urine Bacteria Urine Mucus SARS-CoV-2 RNA (DENA) (NEGATIVE) SARS CoV-2 RNA Rapid DENA 10/12/20 10/12/20 10/12/20 Range/Units 11:48 11:48 11:48 WBC 2.1 L (4.5-11.0) K/uL RBC 4.60 (4.30-5.90) M/uL Hgb 13.4 D (12.0-15.0) g/dL Hct 39.9 L (40.0-54.0) % MCV 87 (80-98) fL MCH 29 (27-31) pg MCHC 34 (32-36) % Plt Count 37 L (150-400) K/uL Neut % (Auto) 82 H (36-66) % Lymph % (Auto) 10 L (24-44) % [place] % (Auto) 5 (2-6) % Eos % (Auto) 1 L (2-4) % Baso % (Auto) 2 H (0-1) % PT (9.5-12.0) sec INR (0.80-1.20) D-Dimer, Quantitative > 21816.00 H (0.0-500.0) ng/mL ABG Hemoglobin (13.5-18.0) g/dL ABG Oxyhemoglobin % ABG Carboxyhemoglobin (0.0-1.6) % ABG Methemoglobin % VBG pH (7.350-7.450) VBG pCO2 mm/Hg VBG pO2 mm/Hg VBG HCO3 mmol/L VBG Total CO2 mmol/L VBG O2 Saturation VBG O2 Content %vol VBG Base Excess mm/L O2 Delivery Device Sodium 133 L (140-148) mmol/L Potassium 3.9 (3.6-5.2) mmol/L Chloride 99 L (100-108) mmol/L Carbon Dioxide 23 (21-32) mmol/L Anion Gap 14.9 H (5.0-14.0) mmol/L BUN 48 H D (7-18) mg/dL Creatinine 2.1 H D (0.8-1.3) mg/dL Est Cr Clr Drug Dosing 24.97 mL/min Estimated GFR (MDRD) 30 L (>60) Glucose 122 H (74-106) mg/dL Lactic Acid (0.4-2.0) mmol/L Calcium 8.3 L (8.5-10.1) mg/dL Ferritin (8-388) ng/ml Total Bilirubin 0.7 (0.2-1.0) mg/dL Direct Bilirubin 0.45 H (0.0-0.2) mg/dL Indirect Bilirubin 0.25 AST 158 H D (15-37) U/L ALT 49 (12-78) U/L Alkaline Phosphatase 96 (46-116) U/L Lactate Dehydrogenase 859 H (85-227) U/L Troponin I (0.000-0.056) ng/mL C-Reactive Protein 16.29 H (0.0-0.3) mg/dL Total Protein 5.9 L (6.4-8.2) g/dL Albumin 3.0 L (3.4-5.0) g/dL Globulin 2.9 (2.3-3.5) g/dL Albumin/Globulin Ratio 1.0 L (1.2-2.2) Procalcitonin ng/mL Urine Color (YELLOW) Urine Appearance (CLEAR) Urine pH (5.0-8.0) Ur Specific [place] (1.008-1.030) Urine Protein (NEGATIVE) mg/dL Urine Glucose (UA) (NEGATIVE) mg/dL Urine Ketones (NEGATIVE) mg/dL Urine Occult Blood (NEGATIVE) Urine Nitrite (NEGATIVE) Urine Bilirubin (NEGATIVE) Urine Urobilinogen (0.2-1.0) EU/dL Ur Leukocyte Esterase (NEGATIVE) Urine RBC (0-5) Urine WBC (0-5) Ur Epithelial Cells Amorphous Sediment Urine Bacteria Urine Mucus SARS-CoV-2 RNA (DENA) (NEGATIVE) SARS CoV-2 RNA Rapid DENA 10/12/20 10/12/20 10/12/20 Range/Units 11:48 11:48 12:03 WBC (4.5-11.0) K/uL RBC (4.30-5.90) M/uL Hgb (12.0-15.0) g/dL Hct (40.0-54.0) % MCV (80-98) fL MCH (27-31) pg MCHC (32-36) % Plt Count (150-400) K/uL Neut % (Auto) (36-66) % Lymph % (Auto) (24-44) % [place] % (Auto) (2-6) % Eos % (Auto) (2-4) % Baso % (Auto) (0-1) % PT (9.5-12.0) sec INR (0.80-1.20) D-Dimer, Quantitative (0.0-500.0) ng/mL ABG Hemoglobin (13.5-18.0) g/dL ABG Oxyhemoglobin % ABG Carboxyhemoglobin (0.0-1.6) % ABG Methemoglobin % VBG pH (7.350-7.450) VBG pCO2 mm/Hg VBG pO2 mm/Hg VBG HCO3 mmol/L VBG Total CO2 mmol/L VBG O2 Saturation VBG O2 Content %vol VBG Base Excess mm/L O2 Delivery Device Sodium (140-148) mmol/L Potassium (3.6-5.2) mmol/L Chloride (100-108) mmol/L Carbon Dioxide (21-32) mmol/L Anion Gap (5.0-14.0) mmol/L BUN (7-18) mg/dL Creatinine (0.8-1.3) mg/dL Est Cr Clr Drug Dosing mL/min Estimated GFR (MDRD) (>60) Glucose (74-106) mg/dL Lactic Acid 1.7 (0.4-2.0) mmol/L Calcium (8.5-10.1) mg/dL Ferritin (8-388) ng/ml Total Bilirubin (0.2-1.0) mg/dL Direct Bilirubin (0.0-0.2) mg/dL Indirect Bilirubin AST (15-37) U/L ALT (12-78) U/L Alkaline Phosphatase (46-116) U/L Lactate Dehydrogenase (85-227) U/L Troponin I (0.000-0.056) ng/mL C-Reactive Protein (0.0-0.3) mg/dL Total Protein (6.4-8.2) g/dL Albumin (3.4-5.0) g/dL Globulin (2.3-3.5) g/dL Albumin/Globulin Ratio (1.2-2.2) Procalcitonin 31.14 H* ng/mL Urine Color (YELLOW) Urine Appearance (CLEAR) Urine pH (5.0-8.0) Ur Specific [place] (1.008-1.030) Urine Protein (NEGATIVE) mg/dL Urine Glucose (UA) (NEGATIVE) mg/dL Urine Ketones (NEGATIVE) mg/dL Urine Occult Blood (NEGATIVE) Urine Nitrite (NEGATIVE) Urine Bilirubin (NEGATIVE) Urine Urobilinogen (0.2-1.0) EU/dL Ur Leukocyte Esterase (NEGATIVE) Urine RBC (0-5) Urine WBC (0-5) Ur Epithelial Cells Amorphous Sediment Urine Bacteria Urine Mucus SARS-CoV-2 RNA (DENA) (NEGATIVE) SARS CoV-2 RNA Rapid DENA Negative 10/12/20 10/12/20 10/12/20 Range/Units 14:00 14:43 15:55 WBC (4.5-11.0) K/uL RBC (4.30-5.90) M/uL Hgb (12.0-15.0) g/dL Hct (40.0-54.0) % MCV (80-98) fL MCH (27-31) pg MCHC (32-36) % Plt Count (150-400) K/uL Neut % (Auto) (36-66) % Lymph % (Auto) (24-44) % [place] % (Auto) (2-6) % Eos % (Auto) (2-4) % Baso % (Auto) (0-1) % PT (9.5-12.0) sec INR (0.80-1.20) D-Dimer, Quantitative (0.0-500.0) ng/mL ABG Hemoglobin (13.5-18.0) g/dL ABG Oxyhemoglobin % ABG Carboxyhemoglobin (0.0-1.6) % ABG Methemoglobin % VBG pH (7.350-7.450) VBG pCO2 mm/Hg VBG pO2 mm/Hg VBG HCO3 mmol/L VBG Total CO2 mmol/L VBG O2 Saturation VBG O2 Content %vol VBG Base Excess mm/L O2 Delivery Device Sodium 134 L (140-148) mmol/L Potassium 3.5 L (3.6-5.2) mmol/L Chloride 100 (100-108) mmol/L Carbon Dioxide 24 (21-32) mmol/L Anion Gap 13.5 (5.0-14.0) mmol/L BUN 44 H (7-18) mg/dL Creatinine 1.6 H (0.8-1.3) mg/dL Est Cr Clr Drug Dosing 32.77 mL/min Estimated GFR (MDRD) 41 L (>60) Glucose 112 H (74-106) mg/dL Lactic Acid (0.4-2.0) mmol/L Calcium 8.0 L (8.5-10.1) mg/dL Ferritin (8-388) ng/ml Total Bilirubin (0.2-1.0) mg/dL Direct Bilirubin (0.0-0.2) mg/dL Indirect Bilirubin AST (15-37) U/L ALT (12-78) U/L Alkaline Phosphatase (46-116) U/L Lactate Dehydrogenase (85-227) U/L Troponin I 0.199 H* (0.000-0.056) ng/mL C-Reactive Protein (0.0-0.3) mg/dL Total Protein (6.4-8.2) g/dL Albumin (3.4-5.0) g/dL Globulin (2.3-3.5) g/dL Albumin/Globulin Ratio (1.2-2.2) Procalcitonin ng/mL Urine Color (YELLOW) Urine Appearance (CLEAR) Urine pH (5.0-8.0) Ur Specific [place] (1.008-1.030) Urine Protein (NEGATIVE) mg/dL Urine Glucose (UA) (NEGATIVE) mg/dL Urine Ketones (NEGATIVE) mg/dL Urine Occult Blood (NEGATIVE) Urine Nitrite (NEGATIVE) Urine Bilirubin (NEGATIVE) Urine Urobilinogen (0.2-1.0) EU/dL Ur Leukocyte Esterase (NEGATIVE) Urine RBC (0-5) Urine WBC (0-5) Ur Epithelial Cells Amorphous Sediment Urine Bacteria Urine Mucus SARS-CoV-2 RNA (DENA) Negative (NEGATIVE) SARS CoV-2 RNA Rapid DENA 10/12/20 Range/Units 17:18 WBC (4.5-11.0) K/uL RBC (4.30-5.90) M/uL Hgb (12.0-15.0) g/dL Hct (40.0-54.0) % MCV (80-98) fL MCH (27-31) pg MCHC (32-36) % Plt Count (150-400) K/uL Neut % (Auto) (36-66) % Lymph % (Auto) (24-44) % [place] % (Auto) (2-6) % Eos % (Auto) (2-4) % Baso % (Auto) (0-1) % PT (9.5-12.0) sec INR (0.80-1.20) D-Dimer, Quantitative (0.0-500.0) ng/mL ABG Hemoglobin (13.5-18.0) g/dL ABG Oxyhemoglobin % ABG Carboxyhemoglobin (0.0-1.6) % ABG Methemoglobin % VBG pH (7.350-7.450) VBG pCO2 mm/Hg VBG pO2 mm/Hg VBG HCO3 mmol/L VBG Total CO2 mmol/L VBG O2 Saturation VBG O2 Content %vol VBG Base Excess mm/L O2 Delivery Device Sodium (140-148) mmol/L Potassium (3.6-5.2) mmol/L Chloride (100-108) mmol/L Carbon Dioxide (21-32) mmol/L Anion Gap (5.0-14.0) mmol/L BUN (7-18) mg/dL Creatinine (0.8-1.3) mg/dL Est Cr Clr Drug Dosing mL/min Estimated GFR (MDRD) (>60) Glucose (74-106) mg/dL Lactic Acid (0.4-2.0) mmol/L Calcium (8.5-10.1) mg/dL Ferritin (8-388) ng/ml Total Bilirubin (0.2-1.0) mg/dL Direct Bilirubin (0.0-0.2) mg/dL Indirect Bilirubin AST (15-37) U/L ALT (12-78) U/L Alkaline Phosphatase (46-116) U/L Lactate Dehydrogenase (85-227) U/L Troponin I (0.000-0.056) ng/mL C-Reactive Protein (0.0-0.3) mg/dL Total Protein (6.4-8.2) g/dL Albumin (3.4-5.0) g/dL Globulin (2.3-3.5) g/dL Albumin/Globulin Ratio (1.2-2.2) Procalcitonin ng/mL Urine Color Yellow (YELLOW) Urine Appearance Slightly cloudy A (CLEAR) Urine pH 5.5 (5.0-8.0) Ur Specific [place] 1.025 (1.008-1.030) Urine Protein 100 H (NEGATIVE) mg/dL Urine Glucose (UA) Negative (NEGATIVE) mg/dL Urine Ketones Negative (NEGATIVE) mg/dL Urine Occult Blood Moderate H (NEGATIVE) Urine Nitrite Negative (NEGATIVE) Urine Bilirubin Negative (NEGATIVE) Urine Urobilinogen 0.2 (0.2-1.0) EU/dL Ur Leukocyte Esterase Negative (NEGATIVE) Urine RBC 5-10 H (0-5) Urine WBC 0-5 (0-5) Ur Epithelial Cells Few Amorphous Sediment Moderate Urine Bacteria Moderate Urine Mucus Not seen SARS-CoV-2 RNA (DENA) (NEGATIVE) SARS CoV-2 RNA Rapid DENA Result Diagrams: 10/12/20 11:48 10/12/20 15:55 Clint Results Last 24 hrs: Microbiology 10/12/20 11:17 Influenza Type A Antigen Screen - Final Nasal Aspirate, Unspecified NEGATIVE INFLUENZA A VIRUS AG REFERENCE RANGE: NEGATIVE Influenza Type B Antigen Screen - Final NEGATIVE INFLUENZA B VIRUS AG REFERENCE RANGE: NEGATIVE Sepsis Event Note - Evaluation Sepsis Screening Result: No Definite Risk - Focused Exam Vital Signs: Vital Signs Temp Temp Pulse Resp BP Pulse Ox 10/12/20 19:25 37.5 C 10/12/20 17:02 73 131/61 86 L 10/12/20 13:30 60 107/44 L 94 L 10/12/20 13:00 62 98/43 L 10/12/20 11:19 62 100/41 L 87 L 10/12/20 10:36 35.3 C L 75 18 110/45 L 91 L 10/12/20 10:35 35.3 C L 75 18 110/45 L 91 L - Problem List (1) Pneumonia SNOMED Code(s): 434094019 ICD Code: J18.9 - PNEUMONIA, UNSPECIFIED ORGANISM Status: Acute Priority: High Current Visit: Yes Qualifiers: Pneumonia type: due to unspecified organism Laterality: unspecified laterality Lung location: unspecified part of lung Qualified Code(s): J18.9 - Pneumonia, unspecified organism (2) Cardiovascular disease Status: Chronic Priority: Medium Current Visit: Yes (3) Rash of genital area SNOMED Code(s): 819601424 ICD Code: R21 - RASH AND OTHER NONSPECIFIC SKIN ERUPTION Status: Acute Priority: Low Current Visit: Yes Problem List Initiated/Reviewed/Updated: Yes Orders Last 24hrs: Active Orders 24 hr Category Date Time Status Patient Status Manage Transfer [TRANSFER] Routine ADT 10/12/20 19:31 Active CORONAVIRUS COVID-19, [facility] Stat Lab 10/12/20 14:37 Ordered CULTURE BLOOD [BC] Urgent Lab 10/12/20 18:20 Received CULTURE BLOOD [BC] Urgent Lab 10/12/20 18:25 Received TROPONIN I [CHEM] Routine Lab 10/12/20 20:10 Ordered Acetaminophen [TylenoL] Med 10/12/20 11:17 Active 650 mg PO Q4H PRN Clopidogrel [Plavix] Med 10/13/20 09:00 Ordered 75 mg PO DAILY Cyanocobalamin (Vitamin B12) [Vitamin B12] Med 10/13/20 09:00 Ordered 8,000,000 mcg PO DAILY Iopamidol [Isovue-370 (76%)] Med 10/12/20 16:30 Active 50 ml IV . DIRECTED Levofloxacin/Dextrose 5%-Water [Levaquin in D5W 750 MG/ Med 10/12/20 18:30 Active 150 ML] 750 mg Premix Bag 1 bag IV Q48H Nitroglycerin [Nitrostat] Med 10/12/20 19:45 Ordered 0.4 mg SL ASDIRECTED Sodium Chloride 0.9% [Normal Saline] 89 ml Med 10/12/20 16:30 Active IV ASDIRECTED cefTRIAXone [Rocephin] 1 gm Med 10/12/20 15:00 Active Sodium Chloride 0.9% [Normal Saline] 50 ml IV Q24H Blood Culture x2 Reflex Set [OM.PC] Urgent Oth 10/12/20 18:12 Ordered Isolation [COMM] Routine Oth 10/12/20 11:17 Ordered Isolation [COMM] Stat Oth 10/12/20 11:17 Ordered Resuscitation Status Routine Resus Stat 10/12/20 19:32 Ordered Medication Orders Acetaminophen (Tylenol) 650 mg PO Q4H PRN PRN Reason: Fever Greater Than 101 Last Admin: 10/12/20 19:25 Dose: 650 mg Documented by: ISABEL Clopidogrel Bisulfate (Plavix) 75 mg PO DAILY [facility] Cyanocobalamin (Vitamin B12) 8,000,000 mcg PO DAILY [facility] Ceftriaxone Sodium 1 gm/ (Sodium Chloride) 50 mls @ 100 mls/hr IV Q24H [facility] Last Admin: 10/12/20 15:00 Dose: Not Given Documented by: Admin: 10/12/20 14:50 Dose: 100 mls/hr Documented by: GODFREY Sodium Chloride (Normal Saline) 89 mls @ 3 mls/sec IV ASDIRECTED [facility] Last Admin: 10/12/20 16:50 Dose: 4 mls/sec Documented by: CINDY Levofloxacin/Dextrose 750 mg/ (Premix) 150 mls @ 100 mls/hr IV Q48H [facility] Last Admin: 10/12/20 19:25 Dose: 100 mls/hr Documented by: ISABEL Iopamidol (Isovue-370 (76%)) 50 ml IV . DIRECTED [facility] Last Admin: 10/12/20 16:50 Dose: 50 ml Documented by: CINDY Nitroglycerin (Nitrostat) 0.4 mg SL ASDIRECTED [facility] Assessment/Plan Comment:: Assessment/Plan Comment:: ASSESSMENT AND PLAN OF CARE Mr. Walker reports being sick for the past 5 day, but today symptoms are worse with shaking chills, fever, shortness of breath and coughing. He reports no chest pain except when takes a deep breath or coughs. He has no appetite and has not eating today. denies nausea and vomiting, had diarrhea for the past two days. ER workup shows WBC 2.1, hgb 13.4, hct 39.9, platelets 37, Ferritin >58802, D Dimer >17053 Chemistry Na+ 134, K+ 3.5, cl 100, anion gap 24, BUN 44, Cr 1.6, glucose 112, Urine negative WBC, + occult blood, CRP 16.29, negative Covid-19 and influenza A&B, blood cultures pending. Lactic acid 1.7, procalcitonin 31.14 elevated. Troponin at 1400 0.199 and at 8 pm. 0.215 without chest pain. X-ray chest Radiology report bilateral patchy infiltrates. Medication given IV Rocephin 1 gram, IV Levoquin 750 mg., IV fluids, Tylenol in ER. Plan to hospital for further care and treatment. and Mrs. Walker agree with plan of care. Pneumonia, with recent history of lung cancer, last radiation treatment June 2020. -Admit to [address] [place] [address] for further monitoring -IV Fluids for rehydration NS at 100 mL per hour -IV Antibiotic; Rocephin 1 gram IV every 24 hours -IV Levoquin 750mg every 48 hours -Lovenox 40 mg subcut daily -oxygen to keep sats greater than 95%, currently nasal cannula at 2 liter with oxygen sat at 92% -PO Dexamethasone 6 mg daily - give first dose tonight -Duo nebs every 6 hours prn , Albuterol nebs every 4 hours prn -Advise to notify nurses of any chest pain or other symptoms -blood cultures x2 pending -And a.m. labs: CBC, BMP, Lactic acid Coronary artery disease- cardiac history positive for cardiac stents x 2. denies any history of AR -continue Plavix daily -ordered home medications Rash scrotum -apply clotrimazole 1% to rash two times a day Maintenance issues -Orders home meds: chronic medication -Nutrition: clear liquids advance as tolerated. -Dunn catheter -not indicated at this time -DVT: Lovenox 40 mg subcut -PPI; IV Protonix 40mg bid CODE STATUS: FULL Admission status: Admit to [address] [place] [address] Admission justification. This patient will be admitted for inpatient services and is medically appropriate meeting medical necessity for inpatient admission as outlined in my documentation. I reasonably expect the patient will require inpatient services that span. Time over 2 midnights. I reasonably expect this patient to be discharged or transferred within 96 hours after admission to the [facility]. Disposition: home with Ember Primary care provider: Dr. Waterman, [facility] Hospitalist: Dr. Yusuf - Mortality Measure Prognosis:: Good
[2020-10-12] MEDS ORDERED: Albuterol 0.083% 2.5 MG/3 ML Neb Soln NEB PRN (20:10)
[2020-10-12] MEDS ORDERED: Ondansetron 4 MG Tab.DIS PO PRN (20:10)
[2020-10-12] MEDS ORDERED: Sodium Chloride 0.9% 1,000 ML IV SCH (20:10)
[2020-10-12] MEDS ORDERED: Acetaminophen/HYDROcodone 325-5 MG Tab PO PRN (20:10)
[2020-10-12] MEDS ORDERED: Docusate Sodium 100 MG Cap PO PRN (20:10)
[2020-10-12] MEDS ORDERED: Ondansetron 4 MG/2 ML SDV IV PRN (20:10)
[2020-10-12] MEDS ORDERED: Dexamethasone 2 MG Tab PO SCH (20:10)
[2020-10-12] MEDS ORDERED: Bisacodyl 5 MG Tab PO PRN (20:10)
[2020-10-12] MEDS ORDERED: Albuterol/Ipratropium 3.0-0.5 MG/3 ML Neb Soln NEB PRN (20:10)
[2020-10-12] MEDS ORDERED: Morphine 2 MG/ML SYRINGE IVPUSH PRN (20:10)
[2020-10-12] MEDS ORDERED: Melatonin 3 MG Tab PO PRN (20:10)
[2020-10-12] MEDS: Clotrimazole 1% Crm 30 GM Tube TOP SCH ×2 (22:18→22:25)
[2020-10-12] MEDS: Pantoprazole 40 MG Vial IV SCH (22:18)
[2020-10-13] MEDS ORDERED: Cyanocobalamin (Vitamin B12) 1,000 MCG Tab PO SCH (09:00)
[2020-10-13] MEDS: Clopidogrel 75 MG Tab PO SCH (09:20)
[2020-10-13] MEDS: Enoxaparin 40 MG/0.4 ML Syringe SUBCUT SCH (09:21)
[2020-10-13] MEDS: Pantoprazole 40 MG Vial IV SCH (09:21)
[2020-10-13] MEDS: Cyanocobalamin (Vitamin B12) 1,000 MCG Tab PO SCH (13:11)
--- NOTE | 2020-10-13 13:28 | PCM.PN ---
- General Info Date of Service: 10/13/20 Subjective Update: No acute events overnight. Patient is feeling a fair amount better today. He feels less short of breath. Appetite and energy are little better. Body aches are better. No fevers overnight. Still requiring supplemental oxygen but respiratory status has been stable. White count and platelets remain quite low today. Functional Status: Reports: Pain Controlled, Tolerating Diet - Review of Systems General: Reports: Weakness. Denies: Fever Pulmonary: Reports: Shortness of Breath, Cough - Patient Data Vitals - Most Recent: Last Vital Signs Temp 35.9 C L 10/13/20 10:46 Pulse 60 10/13/20 10:46 Resp 18 10/13/20 10:46 BP 100/33 L 10/13/20 10:46 Pulse Ox 100 10/13/20 10:46 Weight - Most Recent: 68.039 kg I&O - Last 24 Hours: Intake & Output 10/12/20 10/13/20 10/13/20 22:59 06:59 14:59 Intake Total 200 865 265 Output Total 250 400 Balance 200 615 -135 Lab Results Last 24 Hours: Laboratory Results - last 24 hr 10/12/20 10/12/20 10/12/20 Range/Units 14:00 14:43 15:55 WBC (4.5-11.0) K/uL RBC (4.30-5.90) M/uL Hgb (12.0-15.0) g/dL Hct (40.0-54.0) % MCV (80-98) fL MCH (27-31) pg MCHC (32-36) % Plt Count (150-400) K/uL Neut % (Auto) (36-66) % Lymph % (Auto) (24-44) % [place] % (Auto) (2-6) % Eos % (Auto) (2-4) % Baso % (Auto) (0-1) % Sodium 134 L (140-148) mmol/L Potassium 3.5 L (3.6-5.2) mmol/L Chloride 100 (100-108) mmol/L Carbon Dioxide 24 (21-32) mmol/L Anion Gap 13.5 (5.0-14.0) mmol/L BUN 44 H (7-18) mg/dL Creatinine 1.6 H (0.8-1.3) mg/dL Est Cr Clr Drug Dosing 32.77 mL/min Estimated GFR (MDRD) 41 L (>60) Glucose 112 H (74-106) mg/dL Lactic Acid (0.4-2.0) mmol/L Calcium 8.0 L (8.5-10.1) mg/dL Troponin I 0.199 H* (0.000-0.056) ng/mL C-Reactive Protein (0.0-0.3) mg/dL Urine Color (YELLOW) Urine Appearance (CLEAR) Urine pH (5.0-8.0) Ur Specific [place] (1.008-1.030) Urine Protein (NEGATIVE) mg/dL Urine Glucose (UA) (NEGATIVE) mg/dL Urine Ketones (NEGATIVE) mg/dL Urine Occult Blood (NEGATIVE) Urine Nitrite (NEGATIVE) Urine Bilirubin (NEGATIVE) Urine Urobilinogen (0.2-1.0) EU/dL Ur Leukocyte Esterase (NEGATIVE) Urine RBC (0-5) Urine WBC (0-5) Ur Epithelial Cells Amorphous Sediment Urine Bacteria Urine Mucus SARS-CoV-2 RNA (DENA) Negative (NEGATIVE) 10/12/20 10/12/20 10/12/20 Range/Units 17:18 20:05 20:08 WBC (4.5-11.0) K/uL RBC (4.30-5.90) M/uL Hgb (12.0-15.0) g/dL Hct (40.0-54.0) % MCV (80-98) fL MCH (27-31) pg MCHC (32-36) % Plt Count (150-400) K/uL Neut % (Auto) (36-66) % Lymph % (Auto) (24-44) % [place] % (Auto) (2-6) % Eos % (Auto) (2-4) % Baso % (Auto) (0-1) % Sodium (140-148) mmol/L Potassium (3.6-5.2) mmol/L Chloride (100-108) mmol/L Carbon Dioxide (21-32) mmol/L Anion Gap (5.0-14.0) mmol/L BUN (7-18) mg/dL Creatinine (0.8-1.3) mg/dL Est Cr Clr Drug Dosing mL/min Estimated GFR (MDRD) (>60) Glucose (74-106) mg/dL Lactic Acid 1.7 (0.4-2.0) mmol/L Calcium (8.5-10.1) mg/dL Troponin I 0.215 H* (0.000-0.056) ng/mL C-Reactive Protein (0.0-0.3) mg/dL Urine Color Yellow (YELLOW) Urine Appearance Slightly cloudy A (CLEAR) Urine pH 5.5 (5.0-8.0) Ur Specific [place] 1.025 (1.008-1.030) Urine Protein 100 H (NEGATIVE) mg/dL Urine Glucose (UA) Negative (NEGATIVE) mg/dL Urine Ketones Negative (NEGATIVE) mg/dL Urine Occult Blood Moderate H (NEGATIVE) Urine Nitrite Negative (NEGATIVE) Urine Bilirubin Negative (NEGATIVE) Urine Urobilinogen 0.2 (0.2-1.0) EU/dL Ur Leukocyte Esterase Negative (NEGATIVE) Urine RBC 5-10 H (0-5) Urine WBC 0-5 (0-5) Ur Epithelial Cells Few Amorphous Sediment Moderate Urine Bacteria Moderate Urine Mucus Not seen SARS-CoV-2 RNA (DENA) (NEGATIVE) 10/13/20 10/13/20 10/13/20 Range/Units 02:06 05:54 05:54 WBC 1.9 L (4.5-11.0) K/uL RBC 4.20 L (4.30-5.90) M/uL Hgb 12.3 (12.0-15.0) g/dL Hct 36.3 L (40.0-54.0) % MCV 86 (80-98) fL MCH 29 (27-31) pg MCHC 34 (32-36) % Plt Count 31 L (150-400) K/uL Neut % (Auto) 53 (36-66) % Lymph % (Auto) 22 L (24-44) % [place] % (Auto) 16 H (2-6) % Eos % (Auto) 0 L (2-4) % Baso % (Auto) 9 H (0-1) % Sodium 134 L (140-148) mmol/L Potassium 3.8 (3.6-5.2) mmol/L Chloride 101 (100-108) mmol/L Carbon Dioxide 25 (21-32) mmol/L Anion Gap 11.8 (5.0-14.0) mmol/L BUN 33 H (7-18) mg/dL Creatinine 1.1 (0.8-1.3) mg/dL Est Cr Clr Drug Dosing 48.97 mL/min Estimated GFR (MDRD) > 60 (>60) Glucose 124 H (74-106) mg/dL Lactic Acid (0.4-2.0) mmol/L Calcium 7.8 L (8.5-10.1) mg/dL Troponin I 0.259 H* (0.000-0.056) ng/mL C-Reactive Protein 15.08 H (0.0-0.3) mg/dL Urine Color (YELLOW) Urine Appearance (CLEAR) Urine pH (5.0-8.0) Ur Specific [place] (1.008-1.030) Urine Protein (NEGATIVE) mg/dL Urine Glucose (UA) (NEGATIVE) mg/dL Urine Ketones (NEGATIVE) mg/dL Urine Occult Blood (NEGATIVE) Urine Nitrite (NEGATIVE) Urine Bilirubin (NEGATIVE) Urine Urobilinogen (0.2-1.0) EU/dL Ur Leukocyte Esterase (NEGATIVE) Urine RBC (0-5) Urine WBC (0-5) Ur Epithelial Cells Amorphous Sediment Urine Bacteria Urine Mucus SARS-CoV-2 RNA (DENA) (NEGATIVE) 10/13/20 Range/Units 08:06 WBC (4.5-11.0) K/uL RBC (4.30-5.90) M/uL Hgb (12.0-15.0) g/dL Hct (40.0-54.0) % MCV (80-98) fL MCH (27-31) pg MCHC (32-36) % Plt Count (150-400) K/uL Neut % (Auto) (36-66) % Lymph % (Auto) (24-44) % [place] % (Auto) (2-6) % Eos % (Auto) (2-4) % Baso % (Auto) (0-1) % Sodium (140-148) mmol/L Potassium (3.6-5.2) mmol/L Chloride (100-108) mmol/L Carbon Dioxide (21-32) mmol/L Anion Gap (5.0-14.0) mmol/L BUN (7-18) mg/dL Creatinine (0.8-1.3) mg/dL Est Cr Clr Drug Dosing mL/min Estimated GFR (MDRD) (>60) Glucose (74-106) mg/dL Lactic Acid (0.4-2.0) mmol/L Calcium (8.5-10.1) mg/dL Troponin I 0.141 H* (0.000-0.056) ng/mL C-Reactive Protein (0.0-0.3) mg/dL Urine Color (YELLOW) Urine Appearance (CLEAR) Urine pH (5.0-8.0) Ur Specific [place] (1.008-1.030) Urine Protein (NEGATIVE) mg/dL Urine Glucose (UA) (NEGATIVE) mg/dL Urine Ketones (NEGATIVE) mg/dL Urine Occult Blood (NEGATIVE) Urine Nitrite (NEGATIVE) Urine Bilirubin (NEGATIVE) Urine Urobilinogen (0.2-1.0) EU/dL Ur Leukocyte Esterase (NEGATIVE) Urine RBC (0-5) Urine WBC (0-5) Ur Epithelial Cells Amorphous Sediment Urine Bacteria Urine Mucus SARS-CoV-2 RNA (DENA) (NEGATIVE) Clint Results Last 24 Hours: Microbiology 10/12/20 11:17 Influenza Type A Antigen Screen - Final Nasal Aspirate, Unspecified NEGATIVE INFLUENZA A VIRUS AG REFERENCE RANGE: NEGATIVE Influenza Type B Antigen Screen - Final NEGATIVE INFLUENZA B VIRUS AG REFERENCE RANGE: NEGATIVE Med Orders - Current: Current Medications Acetaminophen (Tylenol) 650 mg PO Q4H PRN PRN Reason: Fever Greater Than 101 Last Admin: 10/12/20 19:25 Dose: 650 mg Documented by: Hydrocodone Bitart/Acetaminophen ([place] 325-5 Mg) 1 tab PO Q4H PRN PRN Reason: Pain (moderate 4-6) Albuterol (Proventil Neb Soln) 2.5 mg NEB Q4H PRN PRN Reason: Shortness Of Breath/wheezing Albuterol/Ipratropium (Duoneb 3.0-0.5 Mg/3 Ml) 3 ml NEB QID PRN PRN Reason: Shortness Of Breath/wheezing Bisacodyl (Dulcolax) 5 mg PO DAILY PRN PRN Reason: Constipation Clopidogrel Bisulfate (Plavix) 75 mg PO DAILY [facility] Last Admin: 10/13/20 09:20 Dose: 75 mg Documented by: Clotrimazole (Lotrimin Af 1% Crm) 0 gm TOP BID [facility] Last Admin: 10/12/20 22:25 Dose: 1 applic Documented by: Dexamethasone (Dexamethasone) 6 mg PO BEDTIME [facility] Docusate Sodium (Colace) 100 mg PO BID PRN PRN Reason: Constipation Enoxaparin Sodium (Lovenox) 40 mg SUBCUT DAILY [facility] Last Admin: 10/13/20 09:21 Dose: 40 mg Documented by: Ceftriaxone Sodium 1 gm/ (Sodium Chloride) 50 mls @ 100 mls/hr IV Q24H [facility] Last Admin: 10/12/20 15:00 Dose: Not Given Documented by: Levofloxacin/Dextrose 750 mg/ (Premix) 150 mls @ 100 mls/hr IV Q48H [facility] Last Admin: 10/12/20 19:25 Dose: 100 mls/hr Documented by: Sodium Chloride (Normal Saline) 1,000 mls @ 100 mls/hr IV ASDIRECTED [facility] Last Admin: 10/13/20 04:39 Dose: 100 mls/hr Documented by: Melatonin (Melatonin) 6 mg PO BEDTIME PRN PRN Reason: Insomnia Morphine Sulfate (Morphine) 2 mg IVPUSH Q2H PRN PRN Reason: Pain (severe 7-10) Nitroglycerin (Nitrostat) 0.4 mg SL ASDIRECTED PRN PRN Reason: CHEST DISCOMFORT Felodipine ( Felodipine Er) 10 Mg Pom 10 mg PO DAILY [facility] Ondansetron HCl (Zofran Odt) 4 mg PO Q6H PRN PRN Reason: Nausea able to take PO Ondansetron HCl (Zofran) 4 mg IV Q4H PRN PRN Reason: Nausea/Vomiting Pantoprazole Sodium (Protonix Iv) 40 mg IV Q12H [facility] Last Admin: 10/13/20 09:21 Dose: 40 mg Documented by: Discontinued Medications Cyanocobalamin (Vitamin B12) 8,000,000 mcg PO DAILY [facility] Cyanocobalamin (Vitamin B12) 8,000 mcg PO DAILY [facility] Last Admin: 10/13/20 13:11 Dose: Not Given Documented by: Dexamethasone (Dexamethasone) 6 mg PO DAILY [facility] Last Admin: 10/12/20 22:25 Dose: 6 mg Documented by: Ceftriaxone Sodium 1 gm/ (Sodium Chloride) 50 mls @ 100 mls/hr IV Q24H [facility] Last Admin: 10/12/20 15:00 Dose: Not Given Documented by: Sodium Chloride (Normal Saline) 89 mls @ 3 mls/sec IV ASDIRECTED [facility] Last Admin: 10/12/20 16:50 Dose: 4 mls/sec Documented by: Iopamidol (Isovue-370 (76%)) 50 ml IV . DIRECTED [facility] Last Admin: 10/12/20 16:50 Dose: 50 ml Documented by: - Exam Quality Assessment: Supplemental Oxygen General: Alert, Oriented, Cooperative, No Acute Distress Lungs: Normal Respiratory Effort, Crackles (few both bases). No: Wheezing Cardiovascular: Regular Rate, Regular Rhythm GI/Abdominal Exam: Soft, No Distention Extremities: No Pedal Edema. No: Increased Warmth Skin: Warm, Dry Psy/Mental Status: Alert, Normal Affect Sepsis Event Note - Evaluation Sepsis Screening Result: No Definite Risk - Focused Exam Vital Signs: Vital Signs Temp Pulse Resp BP Pulse Ox 10/13/20 10:46 35.9 C L 60 18 100/33 L 100 10/13/20 06:51 36.4 C 63 18 111/44 L 98 10/13/20 03:00 36.4 C 66 16 110/42 L 91 L - Problem List Review Problem List Initiated/Reviewed/Updated: Yes - My Orders Last 24 Hours: My Active Orders 10/13/20 13:25 Discontinue Telemetry Monitoring [Cardiac Monitoring Discontinue] [RC] Click to Edit 10/13/20 13:27 Convert IV to Saline Lock [OM.PC] Routine 10/13/20 14:00 Felodipine [Felodipine ER] 10 mg PO DAILY 10/13/20 16:30 Pantoprazole [ProTONIX] 40 mg PO BIDAC 10/13/20 Dinner Regular Diet [DIET] 10/14/20 05:00 BASIC METABOLIC PANEL,BMP [CHEM] Timed C-REACTIVE PROTEIN [CHEM] Timed CBC W/O DIFF,HEMOGRAM [HEME] Timed (1) D-DIMER QUANTITATIVE [COAG] Timed - Plan Plan:: Assessment/Plan Comment:: Right lung pneumonia-history very consistent and labs very consistent with COVID-19 infection but he has had 3 - tests. We are going to continue to keep him as a person under investigation. He is on dexamethasone. Clinically he is better today. 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 -Continue outpatient management History of squamous cell lung cancer-he has had a partial lobectomy on the left as well as some radiation treatment. Coronary artery disease- cardiac history positive for cardiac stents x 2. -continue Plavix daily -Continue home medications Rash on scrotum -apply clotrimazole 1% to rash two times a day Maintenance issues -Nutrition: clear liquids advance as tolerated. -Dunn catheter -not indicated at this time -DVT: Lovenox 40 mg subcut -GI;PPI Disposition: I would anticipate discharge home after the hospital stay Silverio Yusuf MD
[2020-10-13] MEDS ORDERED: FELODIPINE 10 MG PO SCH (14:00)
[2020-10-13] MEDS: Clotrimazole 1% Crm 30 GM Tube TOP SCH ×2 (15:04→20:00)
[2020-10-13] MEDS: cefTRIAXone 1 GM in Sodium Chloride 0.9% 50 ML IV SCH (15:53)
[2020-10-13] MEDS: Pantoprazole 40 MG Tab.CR PO SCH (15:53)
[2020-10-13] MEDS: Albuterol/Ipratropium 4 GM Inhalation Spray INH SCH ×2 (15:55→23:06)
[2020-10-13] MEDS: Dexamethasone 2 MG Tab PO SCH (20:00)
[2020-10-14] MEDS: Albuterol/Ipratropium 4 GM Inhalation Spray INH SCH ×4 (07:37→21:24)
[2020-10-14] MEDS: Pantoprazole 40 MG Tab.CR PO SCH ×2 (07:38→16:36)
[2020-10-14] MEDS: Clopidogrel 75 MG Tab PO SCH ×2 (07:38→11:39)
[2020-10-14] MEDS: Enoxaparin 40 MG/0.4 ML Syringe SUBCUT SCH ×2 (07:38→11:39)
[2020-10-14] MEDS: Clotrimazole 1% Crm 30 GM Tube TOP SCH ×2 (11:39→20:06)
--- NOTE | 2020-10-14 13:00 | PCM.PN ---
- General Info Date of Service: 10/14/20 Subjective Update: No acute events overnight. Patient feels quite a bit better today. No complaints of shortness of breath beyond his baseline. No fevers. No headache or chest pain. His appetite is good. He is off supplemental oxygen. White count is now normal. D-dimer is improving. A third test for COVID-19 was negative. Functional Status: Reports: Pain Controlled, Tolerating Diet - Review of Systems General: Reports: Weakness. Denies: Fever Pulmonary: Denies: Shortness of Breath - Patient Data Vitals - Most Recent: Last Vital Signs Temp 36.3 C 10/14/20 11:00 Pulse 63 10/14/20 11:00 Resp 16 10/14/20 11:00 BP 133/58 L 10/14/20 11:00 Pulse Ox 93 L 10/14/20 11:00 Weight - Most Recent: 68.039 kg I&O - Last 24 Hours: Intake & Output 10/13/20 10/14/20 10/14/20 22:59 06:59 14:59 Intake Total 1324 300 400 Balance 1324 300 400 Lab Results Last 24 Hours: Laboratory Results - last 24 hr 10/14/20 10/14/20 10/14/20 Range/Units 04:10 04:10 04:10 WBC 5.2 (4.5-11.0) K/uL RBC 4.45 (4.30-5.90) M/uL Hgb 12.9 (12.0-15.0) g/dL Hct 38.3 L (40.0-54.0) % MCV 86 (80-98) fL MCH 29 (27-31) pg MCHC 34 (32-36) % Plt Count 46 L (150-400) K/uL D-Dimer, Quantitative 9744.28 H (0.0-500.0) ng/mL Sodium 138 L (140-148) mmol/L Potassium 3.8 (3.6-5.2) mmol/L Chloride 102 (100-108) mmol/L Carbon Dioxide 25 (21-32) mmol/L Anion Gap 14.8 H (5.0-14.0) mmol/L BUN 27 H (7-18) mg/dL Creatinine 1.1 (0.8-1.3) mg/dL Est Cr Clr Drug Dosing 48.97 mL/min Estimated GFR (MDRD) > 60 (>60) Glucose 158 H (74-106) mg/dL Calcium 8.3 L (8.5-10.1) mg/dL C-Reactive Protein 9.81 H (0.0-0.3) mg/dL Clint Results Last 24 Hours: Microbiology 10/12/20 18:25 Aerobic Blood Culture - Preliminary Blood - Arm, Right NO GROWTH AFTER 1 DAY Anaerobic Blood Culture - Preliminary NO GROWTH AFTER 1 DAY 10/12/20 18:20 Aerobic Blood Culture - Preliminary Blood - Arm, Right NO GROWTH AFTER 1 DAY Anaerobic Blood Culture - Preliminary NO GROWTH AFTER 1 DAY Med Orders - Current: Current Medications Acetaminophen (Tylenol) 650 mg PO Q4H PRN PRN Reason: Fever Greater Than 101 Last Admin: 10/12/20 19:25 Dose: 650 mg Documented by: Hydrocodone Bitart/Acetaminophen ([place] 325-5 Mg) 1 tab PO Q4H PRN PRN Reason: Pain (moderate 4-6) Albuterol/Ipratropium (Combivent Respimat) 0 gm INH QID [facility] Last Admin: 10/14/20 12:01 Dose: 1 puff Documented by: Bisacodyl (Dulcolax) 5 mg PO DAILY PRN PRN Reason: Constipation Clopidogrel Bisulfate (Plavix) 75 mg PO DAILY [facility] Last Admin: 10/14/20 11:39 Dose: Not Given Documented by: Clotrimazole (Lotrimin Af 1% Crm) 0 gm TOP BID [facility] Last Admin: 10/14/20 11:39 Dose: Not Given Documented by: Dexamethasone (Dexamethasone) 6 mg PO BEDTIME [facility] Last Admin: 10/13/20 20:00 Dose: 6 mg Documented by: Docusate Sodium (Colace) 100 mg PO BID PRN PRN Reason: Constipation Enoxaparin Sodium (Lovenox) 40 mg SUBCUT DAILY [facility] Last Admin: 10/14/20 11:39 Dose: Not Given Documented by: Ceftriaxone Sodium 1 gm/ (Sodium Chloride) 50 mls @ 100 mls/hr IV Q24H [facility] Last Admin: 10/13/20 15:53 Dose: 100 mls/hr Documented by: Levofloxacin/Dextrose 750 mg/ (Premix) 150 mls @ 100 mls/hr IV Q48H [facility] Last Admin: 10/12/20 19:25 Dose: 100 mls/hr Documented by: Melatonin (Melatonin) 6 mg PO BEDTIME PRN PRN Reason: Insomnia Morphine Sulfate (Morphine) 2 mg IVPUSH Q2H PRN PRN Reason: Pain (severe 7-10) Nitroglycerin (Nitrostat) 0.4 mg SL ASDIRECTED PRN PRN Reason: CHEST DISCOMFORT Felodipine ( Felodipine Er) 10 Mg Pom 10 mg PO DAILY [facility] Last Admin: 10/13/20 15:04 Dose: Not Given Documented by: Ondansetron HCl (Zofran Odt) 4 mg PO Q6H PRN PRN Reason: Nausea able to take PO Ondansetron HCl (Zofran) 4 mg IV Q4H PRN PRN Reason: Nausea/Vomiting Pantoprazole Sodium (Protonix) 40 mg PO BIDAC [facility] Last Admin: 10/14/20 07:38 Dose: 40 mg Documented by: Discontinued Medications Albuterol (Proventil Neb Soln) 2.5 mg NEB Q4H PRN PRN Reason: Shortness Of Breath/wheezing Albuterol/Ipratropium (Duoneb 3.0-0.5 Mg/3 Ml) 3 ml NEB QID PRN PRN Reason: Shortness Of Breath/wheezing Cyanocobalamin (Vitamin B12) 8,000,000 mcg PO DAILY [facility] Cyanocobalamin (Vitamin B12) 8,000 mcg PO DAILY [facility] Last Admin: 10/13/20 13:11 Dose: Not Given Documented by: Dexamethasone (Dexamethasone) 6 mg PO DAILY [facility] Last Admin: 10/12/20 22:25 Dose: 6 mg Documented by: Ceftriaxone Sodium 1 gm/ (Sodium Chloride) 50 mls @ 100 mls/hr IV Q24H [facility] Last Admin: 10/12/20 15:00 Dose: Not Given Documented by: Sodium Chloride (Normal Saline) 89 mls @ 3 mls/sec IV ASDIRECTED [facility] Last Admin: 10/12/20 16:50 Dose: 4 mls/sec Documented by: Sodium Chloride (Normal Saline) 1,000 mls @ 100 mls/hr IV ASDIRECTED [facility] Last Admin: 10/13/20 04:39 Dose: 100 mls/hr Documented by: Iopamidol (Isovue-370 (76%)) 50 ml IV . DIRECTED [facility] Last Admin: 10/12/20 16:50 Dose: 50 ml Documented by: Pantoprazole Sodium (Protonix Iv) 40 mg IV Q12H [facility] Last Admin: 10/13/20 09:21 Dose: 40 mg Documented by: - Exam Quality Assessment: No: Supplemental Oxygen General: Alert, Oriented, Cooperative, No Acute Distress Lungs: Clear to Auscultation, Normal Respiratory Effort. No: Wheezing Cardiovascular: Regular Rate, Regular Rhythm GI/Abdominal Exam: Soft, No Distention Extremities: No Pedal Edema. No: Increased Warmth Skin: Warm, Dry Psy/Mental Status: Alert, Normal Affect Sepsis Event Note - Evaluation Sepsis Screening Result: No Definite Risk - Focused Exam Vital Signs: Vital Signs Temp Pulse Resp BP Pulse Ox 10/14/20 11:00 36.3 C 63 16 133/58 L 93 L 10/14/20 07:40 36.3 C 63 16 121/95 H 95 10/14/20 07:30 91 L 10/14/20 02:44 36.4 C 66 18 119/49 L 93 L - Problem List Review Problem List Initiated/Reviewed/Updated: Yes - My Orders Last 24 Hours: My Active Orders 10/13/20 13:27 Convert IV to Saline Lock [OM.PC] Routine 10/13/20 14:00 Felodipine [Felodipine ER] 10 mg PO DAILY 10/13/20 15:24 RT Post Treatment Assessment [RC] Click to Edit 10/13/20 16:00 Albuterol/Ipratropium [Combivent Respimat] 0 gm INH QID 10/13/20 16:30 Pantoprazole [ProTONIX] 40 mg PO BIDAC 10/13/20 Dinner Regular Diet [DIET] 10/14/20 12:21 CORONAVIRUS COVID-19 DENA [MOLEC] Stat - Plan Plan:: Assessment/Plan Comment:: Right lung pneumonia-history very consistent and labs very consistent with COVID-19 infection but he has had 4 - tests. He is off oxygen and doing quite well. 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 -Continue outpatient management History of squamous cell lung cancer-he has had a partial lobectomy on the left as well as some radiation treatment. Coronary artery disease- cardiac history positive for cardiac stents x 2. -continue Plavix daily -Continue home medications Rash on scrotum -apply clotrimazole 1% to rash two times a day Maintenance issues -Nutrition: clear liquids advance as tolerated. -Dunn catheter -not indicated at this time -DVT: Lovenox 40 mg subcut -GI;PPI Disposition: I would anticipate discharge home after the hospital stay, possibly tomorrow if stable overnight Silverio Yusuf MD
[2020-10-14] MEDS: Levofloxacin/Dextrose 5%-Water 750 MG in Premix Bag 1 BAG IV SCH (18:31)
[2020-10-14] MEDS: Dexamethasone 2 MG Tab PO SCH (20:31)
[2020-10-15] MEDS: Albuterol/Ipratropium 4 GM Inhalation Spray INH SCH ×2 (05:33→11:22)
[2020-10-15 07:52] VITALS: BP 134/59; PULSE 58
[2020-10-15] MEDS: Clopidogrel 75 MG Tab PO SCH ×2 (07:54→08:00)
[2020-10-15] MEDS: Enoxaparin 40 MG/0.4 ML Syringe SUBCUT SCH ×2 (07:54→08:00)
[2020-10-15] MEDS: Pantoprazole 40 MG Tab.CR PO SCH (07:55)
[2020-10-15] MEDS: Clotrimazole 1% Crm 30 GM Tube TOP SCH (08:00)
--- NOTE | 2020-10-15 11:00 | PCM.DCSUM1 ---
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 He was admitted for management of an atypical right lower lung pneumonia complicated by acute respiratory failure with hypoxia and suspicion for Covid. Diagnosis: Stroke: No - Discharge Data Discharge Date: 10/15/20 Discharge Disposition: Home, Self-Care 01 Condition: Good - Referral to Home Health Primary Care Physician: Dayron Waterman MD - Discharge Diagnosis/Problem(s) (1) Pneumonia SNOMED Code(s): 109699480 ICD Code: J18.9 - PNEUMONIA, UNSPECIFIED ORGANISM Status: Acute Priority: High Qualifiers: Pneumonia type: due to unspecified organism Laterality: right Lung location: lower lobe of lung Qualified Code(s): J18.9 - Pneumonia, unspecified organism (2) COPD with emphysema SNOMED Code(s): 26718138 ICD Code: J43.9 - EMPHYSEMA, UNSPECIFIED Status: Chronic Qualifiers: Emphysema type: unspecified Qualified Code(s): J43.9 - Emphysema, unspecified (3) Squamous cell lung cancer SNOMED Code(s): 455407526, 095538995 ICD Code: C34.90 - MALIGNANT NEOPLASM OF UNSP PART OF UNSP BRONCHUS OR LUNG Status: Chronic Qualifiers: Laterality: left Qualified Code(s): C34.92 - Malignant neoplasm of unspecified part of left bronchus or lung (4) Systolic CHF SNOMED Code(s): 12063335, 097275641 ICD Code: I50.20 - UNSPECIFIED SYSTOLIC (CONGESTIVE) HEART FAILURE Status: Chronic Qualifiers: Heart failure chronicity: chronic Qualified Code(s): I50.22 - Chronic systolic (congestive) heart failure - Patient Summary/Data Hospital Course: Ivan presented to the emergency room with weakness, cough and shortness of breath. Work-up in the emergency room raised concern for COVID-19 infection with low white count, low platelets, significantly elevated D-dimer and significantly elevated C-reactive protein. Procalcitonin level was quite elevated. Chest x-ray did not show any acute findings. With the greatly elevated D-dimer a CT pulmonary angiogram was completed. This did not show any evidence for pulmonary embolism. The appearance did not fit with Covid infection but he did have a small right lower lung pneumonia. He had to test for COVID-19 in the emergency room and both of which were negative. With the elevated procalcitonin we did elect to start him on steroids and antibiotics and he was admitted to the hospital for further management. We did keep him in precautions because of the strong suspicion for Covid despite 2 negative tests in the emergency room and a negative outpatient test. He was hypoxic in the emergency room and over the first 36 hours or so of the hospital stay. We did see a steady improvement throughout the course of the hospital stay. We were able to wean him off his supplemental oxygen. His shortness of breath and cough improved dramatically. Shortness of breath seems to be back to baseline. He has not had any fevers. His white count has normalized. His D-dimer is still quite elevated but is less than at the time of admission. He is feeling much better. Cultures have been negative. This sure looked and sounded like Covid but he has had multiple test that were negative and we did retest him 3 days after admission and this was negative. I think this probably represents more of an atypical bacterial infection. The plan is for him to continue 3 more days of steroids and 2 more doses of antibiotics after hospital discharge. He will be following up with his primary care next week. - Patient Instructions Diet: Regular Diet as Tolerated Activity: As Tolerated Showering/Bathing: May Shower Notify Provider of: Fever, Increased Pain Other/Special Instructions: 1. You were in the hospital for management of a right lower lung pneumonia. Your laboratory studies and clinical picture fit well with a Covid infection but you have tested negative 4 times. This likely represents an atypical bacterial pneumonia. Your condition has been improving with steroids and antibiotics. I do recommend that you continue to take these medications after hospital discharge. Please take levofloxacin 750 mg with supper on Friday and Friday. Please take dexamethasone 6mg with supper on Friday, Friday and Friday. You had your dose of steroids before you left the hospital on Friday. You had your last dose of antibiotics Friday evening. You may resume your usual activities and try to increase your stamina towards normal but this will likely take a couple of weeks. 2. Continue your usual home medications as previously prescribed. 3. Follow up with Dr Waterman in about 10 days to ensure that you continue to improve after your hospital discharge. - Discharge Plan *PRESCRIPTION DRUG MONITORING PROGRAM REVIEWED*: Not Applicable *COPY OF PRESCRIPTION DRUG MONITORING REPORT IN PATIENT FILIBERTO: Not Applicable Prescriptions/Med Rec: dexAMETHasone [Dexamethasone] 6 mg PO Q24H #9 tablet Levofloxacin 750 mg PO Q48H #2 tablet Home Medications: Home Meds Aspirin [Halfprin] 81 mg PO DAILY 03/24/16 [History] Simvastatin [Zocor] 20 mg PO BEDTIME 03/24/16 [History] Clopidogrel Bisulfate [Clopidogrel] 75 mg PO DAILY 01/12/20 [History] Mag Hydrox/Aluminum Hyd/Simeth [Mylanta Maximum Strength Liq] 15 ml PO Q6H PRN 01/12/20 [History] Nitroglycerin 0.4 mg SL ASDIRECTED 01/27/20 [History] Acetaminophen 500 mg PO BID PRN 03/22/20 [History] Pantoprazole Sodium [Protonix] 40 mg PO BID 03/22/20 [History] Aspirin 1 tab PO DAILY 10/12/20 [History] Cholecalciferol (Vitamin D3) [Cholecalciferol] 1 dose PO ASDIRECTED 10/12/20 [History] Cyanocobalamin (Vitamin B-12) [Vitamin B-12] 8,000 mg PO DAILY 10/12/20 [Histor y] Felodipine [Felodipine ER] 10 mg PO DAILY 10/13/20 [History] Levofloxacin 750 mg PO Q48H #2 tablet 10/15/20 [Rx] dexAMETHasone [Dexamethasone] 6 mg PO Q24H #9 tablet 10/15/20 [Rx] Oxygen Therapy Mode: Room Air Patient Handouts: Levofloxacin tablets, Community-Acquired Pneumonia, Adult Referrals: Dayron Waterman MD [Primary Care Provider] - (1-2 weeks - f/u hospital stay for pneumonia Please contact the clinic to make this appointment) - Discharge Summary/Plan Comment DC Time >30 min.: No - Patient Data Vitals - Most Recent: Last Vital Signs Temp 36.4 C 10/15/20 07:50 Pulse 58 L 10/15/20 07:50 Resp 16 10/15/20 03:32 BP 134/59 L 10/15/20 07:50 Pulse Ox 98 10/15/20 07:50 Weight - Most Recent: 68.039 kg I&O - Last 24 hours: Intake & Output 10/14/20 10/15/20 10/15/20 22:59 06:59 14:59 Intake Total 240 240 Balance 240 240 Lab Results - Last 24 hrs: Laboratory Results - last 24 hr 10/14/20 Range/Units 12:21 SARS-CoV-2 RNA (DENA) Negative (NEGATIVE) JEFF Results - Last 24 hrs: Microbiology 10/12/20 18:20 Aerobic Blood Culture - Preliminary Blood - Arm, Right NO GROWTH AFTER 2 DAYS Anaerobic Blood Culture - Preliminary NO GROWTH AFTER 2 DAYS 10/12/20 18:25 Aerobic Blood Culture - Preliminary Blood - Arm, Right NO GROWTH AFTER 2 DAYS Anaerobic Blood Culture - Preliminary NO GROWTH AFTER 2 DAYS Med Orders - Current: Current Medications Acetaminophen (Tylenol) 650 mg PO Q4H PRN PRN Reason: Fever Greater Than 101 Last Admin: 10/12/20 19:25 Dose: 650 mg Documented by: Hydrocodone Bitart/Acetaminophen ([place] 325-5 Mg) 1 tab PO Q4H PRN PRN Reason: Pain (moderate 4-6) Albuterol/Ipratropium (Combivent Respimat) 0 gm INH QID [facility] Last Admin: 10/15/20 05:33 Dose: 1 puff Documented by: Bisacodyl (Dulcolax) 5 mg PO DAILY PRN PRN Reason: Constipation Clopidogrel Bisulfate (Plavix) 75 mg PO DAILY [facility] Last Admin: 10/15/20 08:00 Dose: Not Given Documented by: Clotrimazole (Lotrimin Af 1% Crm) 0 gm TOP BID [facility] Last Admin: 10/15/20 08:00 Dose: Not Given Documented by: Docusate Sodium (Colace) 100 mg PO BID PRN PRN Reason: Constipation Enoxaparin Sodium (Lovenox) 40 mg SUBCUT DAILY [facility] Last Admin: 10/15/20 08:00 Dose: Not Given Documented by: Levofloxacin/Dextrose 750 mg/ (Premix) 150 mls @ 100 mls/hr IV Q48H [facility] Last Admin: 10/14/20 18:31 Dose: 100 mls/hr Documented by: Melatonin (Melatonin) 6 mg PO BEDTIME PRN PRN Reason: Insomnia Morphine Sulfate (Morphine) 2 mg IVPUSH Q2H PRN PRN Reason: Pain (severe 7-10) Nitroglycerin (Nitrostat) 0.4 mg SL ASDIRECTED PRN PRN Reason: CHEST DISCOMFORT Felodipine ( Felodipine Er) 10 Mg Pom 10 mg PO DAILY [facility] Last Admin: 10/13/20 15:04 Dose: Not Given Documented by: Ondansetron HCl (Zofran Odt) 4 mg PO Q6H PRN PRN Reason: Nausea able to take PO Ondansetron HCl (Zofran) 4 mg IV Q4H PRN PRN Reason: Nausea/Vomiting Pantoprazole Sodium (Protonix) 40 mg PO BIDAC [facility] Last Admin: 10/15/20 07:55 Dose: 40 mg Documented by: Discontinued Medications Albuterol (Proventil Neb Soln) 2.5 mg NEB Q4H PRN PRN Reason: Shortness Of Breath/wheezing Albuterol/Ipratropium (Duoneb 3.0-0.5 Mg/3 Ml) 3 ml NEB QID PRN PRN Reason: Shortness Of Breath/wheezing Cyanocobalamin (Vitamin B12) 8,000,000 mcg PO DAILY [facility] Cyanocobalamin (Vitamin B12) 8,000 mcg PO DAILY [facility] Last Admin: 10/13/20 13:11 Dose: Not Given Documented by: Dexamethasone (Dexamethasone) 6 mg PO DAILY [facility] Last Admin: 10/12/20 22:25 Dose: 6 mg Documented by: Dexamethasone (Dexamethasone) 6 mg PO BEDTIME [facility] Last Admin: 10/14/20 20:31 Dose: 6 mg Documented by: Ceftriaxone Sodium 1 gm/ (Sodium Chloride) 50 mls @ 100 mls/hr IV Q24H [facility] Last Admin: 10/12/20 15:00 Dose: Not Given Documented by: Ceftriaxone Sodium 1 gm/ (Sodium Chloride) 50 mls @ 100 mls/hr IV Q24H [facility] Last Admin: 10/13/20 15:53 Dose: 100 mls/hr Documented by: Sodium Chloride (Normal Saline) 89 mls @ 3 mls/sec IV ASDIRECTED [facility] Last Admin: 10/12/20 16:50 Dose: 4 mls/sec Documented by: Sodium Chloride (Normal Saline) 1,000 mls @ 100 mls/hr IV ASDIRECTED [facility] Last Admin: 10/13/20 04:39 Dose: 100 mls/hr Documented by: Iopamidol (Isovue-370 (76%)) 50 ml IV . DIRECTED NORAH Last Admin: 10/12/20 16:50 Dose: 50 ml Documented by: Pantoprazole Sodium (Protonix Iv) 40 mg IV Q12H [facility] Last Admin: 10/13/20 09:21 Dose: 40 mg Documented by:
[2020-10-15] MEDS ORDERED: Dexamethasone 2 MG Tab PO ONE (11:30)
== END 2020-10-15 11:49 | disposition home or self-care (01) | DRG 193 ==
LOC: JP.ED 10:32 → JP.MS 19:31
PROVIDERS: ADMIT Internal Medicine; ATTEND Internal Medicine
DX: J18.9 Pneumonia, unspecified organism (principal); H54.7 Unspecified visual loss; I25.10 Atherosclerotic heart disease of native coronary artery without angina pectoris; I10 Essential (primary) hypertension; E78.00 Pure hypercholesterolemia, unspecified; J96.01 Acute respiratory failure with hypoxia; C34.90 Malignant neoplasm of unspecified part of unspecified bronchus or lung; G89.29 Other chronic pain; M54.9 Dorsalgia, unspecified; I50.22 Chronic systolic (congestive) heart failure; Z88.8 Allergy status to other drugs, medicaments and biological substances; Z88.2 Allergy status to sulfonamides; Z79.02 Long term (current) use of antithrombotics/antiplatelets; Z79.82 Long term (current) use of aspirin; Z79.899 Other long term (current) drug therapy; J43.9 Emphysema, unspecified; I25.5 Ischemic cardiomyopathy; R21 Rash and other nonspecific skin eruption; I11.0 Hypertensive heart disease with heart failure; Z90.49 Acquired absence of other specified parts of digestive tract; Z98.42 Cataract extraction status, left eye; Z98.41 Cataract extraction status, right eye; Z98.52 Vasectomy status; Z95.5 Presence of coronary angioplasty implant and graft; E78.5 Hyperlipidemia, unspecified; K21.9 Gastro-esophageal reflux disease without esophagitis; Z79.01 Long term (current) use of anticoagulants; Z20.828 Contact with and (suspected) exposure to other viral communicable diseases
CPT/HCPCS: 36415; 71045; 71045-26; 71275; 80048; 80076; 81001; 82728; 82803; 83605; 83615; 84145; 84484; 85025; 85027; 85379; 85610; 86140; 87040; 87804; 87804-59; 94640; 94762; 99285-25; A9270-GY; C9113; J0696; J1650; J1956; J7030; J8540; Q9967; U0002

== ENCOUNTER 2020-10-24 08:53 | Emergency (ER) | payer MEDICARE, OTHER ==
[2020-10-24 09:11] VITALS: BP 106/48
[2020-10-24] MEDS ORDERED: Sodium Chloride 0.9% 1,000 ML IV STA (09:47)
[2020-10-24] MEDS ORDERED: fentaNYL 100 MCG/2 ML SDV IVPUSH ONE (09:48)
--- NOTE | 2020-10-24 09:53 | EDM.PDOC ---
ED HPI GENERAL MEDICAL PROBLEM - General Chief Complaint: General Stated Complaint: ABDOMINAL PAIN, SOB, DIZZINESS Time Seen by Provider: 10/24/20 09:36 Source of Information: Reports: Patient, Family, Old Records, RN Notes Reviewed History Limitations: Reports: No Limitations - History of Present Illness INITIAL COMMENTS - FREE TEXT/NARRATIVE: 84-year-old gentleman presents emergency department a complaint of abdominal pain, he has had abdominal pain on and off for the last year recently underwent cholecystectomy January of this year does have appointment with gastroenterology within the next month. He states his abdominal pain started over the last couple days has gotten progressively worse rates it 7 out of 10 he was recently mated to the hospital 2 weeks prior for pneumonia. He denies any shortness of breath or chest pain he had a normal bowel movement last night but does have diarrhea today he is still passing gas no fevers no change with food Upper Abdomen Pain Score (Numeric/FACES): 7 - Related Data Allergies Allergy/AdvReac Type Severity Reaction Status Date / Time naproxen sodium [From Aleve] Allergy Intermediate Other Verified 04/10/20 15:35 Sulfa (Sulfonamide Allergy Other Verified 04/10/20 09:24 Antibiotics) Home Meds: Home Meds Aspirin [Halfprin] 81 mg PO DAILY 03/24/16 [History] Simvastatin [Zocor] 20 mg PO BEDTIME 03/24/16 [History] Clopidogrel Bisulfate [Clopidogrel] 75 mg PO DAILY 01/12/20 [History] Mag Hydrox/Aluminum Hyd/Simeth [Mylanta Maximum Strength Liq] 15 ml PO Q6H PRN 01/12/20 [History] Nitroglycerin 0.4 mg SL ASDIRECTED 01/27/20 [History] Acetaminophen 500 mg PO BID PRN 03/22/20 [History] Pantoprazole Sodium [Protonix] 40 mg PO BID 03/22/20 [History] Cyanocobalamin (Vitamin B-12) [Vitamin B-12] 8,000 mg PO DAILY 10/12/20 [History] Felodipine [Felodipine ER] 10 mg PO DAILY 10/13/20 [History] Albuterol/Ipratropium [Combivent Respimat] 1 puff INH BID 10/24/20 [History] Past Medical History HEENT History: Reports: Cataract, Impaired Vision Other HEENT History: wears glasses Cardiovascular History: Reports: CAD, High Cholesterol, Hypertension, Stents, Syncope, Other (See Below) Other Cardiovascular History: Hospitialized at [facility] June 13 to .for syncopy Gastrointestinal History: Reports: GERD Genitourinary History: Reports: Renal Calculus Musculoskeletal History: Reports: Back Pain, Chronic Hematologic History: Reports: Anticoagulation Therapy Oncologic (Cancer) History: Reports: Lung - Infectious Disease History Infectious Disease History: Reports: Chicken Pox, Measles, Mumps - Past Surgical History Head Surgeries/Procedures: Reports: None HEENT Surgical History: Reports: Cataract Surgery Cardiovascular Surgical History: Reports: Carotid Endarterectomy, Carotid Stents Other Cardiovascular Surgeries/Procedures: cardiac catherization, coronary angiography Respiratory Surgical History: Reports: None, Lung Biopsies, Lung Resection GI Surgical History: Reports: Cholecystectomy, Colonoscopy, EGD Male Surgical History: Reports: Vasectomy Endocrine Surgical History: Reports: None Neurological Surgical History: Reports: None Musculoskeletal Surgical History: Reports: None Oncologic Surgical History: Reports: None Dermatological Surgical History: Reports: None Social & Family History - Family History Family Medical History: No Pertinent Family History - Tobacco Use Tobacco Use Status *Q: Former Tobacco User Used Tobacco, but Quit: Yes Month/Year Tobacco Last Used: 8 years ago - Caffeine Use Caffeine Use: Reports: Coffee Caffeine Use Comment: couple cups of coffee per day, one soda in afternoon - Recreational Drug Use Recreational Drug Use: No - Living Situation & Occupation Living situation: Reports: Occupation: Retired (lives with [employer], [place] of [place], [place]. near [facility]) ED ROS GENERAL - Review of Systems Review Of Systems: See Below Constitutional: Reports: No Symptoms Respiratory: Reports: No Symptoms Cardiovascular: Reports: No Symptoms GI/Abdominal: Reports: Abdominal Pain, Diarrhea, Flatus. Denies: Nausea, Vomiting : Reports: No Symptoms Musculoskeletal: Reports: No Symptoms Skin: Reports: No Symptoms Neurological: Reports: No Symptoms ED EXAM, GENERAL - Physical Exam Exam: See Below Exam Limited By: No Limitations General Appearance: Alert, WD/WN, No Apparent Distress Neck: Normal Inspection, Supple, Non-Tender, Full Range of Motion Respiratory/Chest: No Respiratory Distress, Lungs Clear, Normal Breath Sounds, No Accessory Muscle Use, Chest Non-Tender Cardiovascular: Regular Rate, Rhythm, No Murmur GI/Abdominal: Normal Bowel Sounds, Soft, No Distention, No Abnormal Bruit, Tender (Epigastric periumbilical region) Course - Vital Signs Last Recorded V/S: Last Vital Signs Temp 98.2 F 10/24/20 09:10 Pulse 105 H 10/24/20 09:10 Resp 21 H 10/24/20 09:10 BP 106/48 L 10/24/20 09:10 Pulse Ox 95 10/24/20 09:10 - Orders/Labs/Meds Orders: Active Orders 24 hr Category Date Time Status Peripheral IV Care [RC] . DIRECTED Care 10/24/20 09:48 Active Sodium Chloride 0.9% [Saline Flush] Med 10/24/20 09:47 Active 10 ml FLUSH ASDIRECTED PRN Sodium Chloride 0.9% [Saline Flush] Med 10/24/20 10:16 Active 10 ml FLUSH ONETIME PRN Peripheral IV Insertion Adult [OM.PC] Urgent Oth 10/24/20 09:47 Ordered Medication Orders Sodium Chloride (Saline Flush) 10 ml FLUSH ASDIRECTED PRN PRN Reason: Keep Vein Open Last Admin: 10/24/20 10:10 Dose: 10 ml Documented by: Admin: 10/24/20 10:09 Dose: 10 ml Documented by: PEARL Sodium Chloride (Saline Flush) 10 ml FLUSH ONETIME PRN PRN Reason: PER RADIOLOGY PROTOCOL Last Admin: 10/24/20 10:26 Dose: 10 ml Documented by: [place] Labs: Laboratory Tests 10/24/20 10/24/20 10/24/20 Range/Units 10:03 10:03 10:03 WBC 25.4 H (4.5-11.0) K/uL RBC 4.83 (4.30-5.90) M/uL Hgb 14.1 (12.0-15.0) g/dL Hct 42.0 (40.0-54.0) % MCV 87 (80-98) fL MCH 29 (27-31) pg MCHC 34 (32-36) % Plt Count 266 (150-400) K/uL Neut % (Auto) 92 H (36-66) % Lymph % (Auto) 2 L (24-44) % [place] % (Auto) 7 H (2-6) % Eos % (Auto) 0 L (2-4) % Baso % (Auto) 0 (0-1) % Sodium 139 L (140-148) mmol/L Potassium 4.2 (3.6-5.2) mmol/L Chloride 105 (100-108) mmol/L Carbon Dioxide 26 (21-32) mmol/L Anion Gap 12.2 (5.0-14.0) mmol/L BUN 23 H (7-18) mg/dL Creatinine 1.2 (0.8-1.3) mg/dL Est Cr Clr Drug Dosing 43.69 mL/min Estimated GFR (MDRD) 58 L (>60) Glucose 111 H (74-106) mg/dL Lactic Acid 1.6 (0.4-2.0) mmol/L Calcium 8.4 L (8.5-10.1) mg/dL Total Bilirubin 4.6 H D (0.2-1.0) mg/dL AST 418 H D (15-37) U/L ALT 493 H (12-78) U/L Alkaline Phosphatase 500 H D (46-116) U/L Troponin I < 0.017 (0.000-0.056) ng/mL Total Protein 5.9 L (6.4-8.2) g/dL Albumin 2.8 L (3.4-5.0) g/dL Globulin 3.1 (2.3-3.5) g/dL Albumin/Globulin Ratio 0.9 L (1.2-2.2) Lipase 02092 H (73-393) U/L Urine Color (YELLOW) Urine Appearance (CLEAR) Urine pH (5.0-8.0) Ur Specific [place] (1.008-1.030) Urine Protein (NEGATIVE) mg/dL Urine Glucose (UA) (NEGATIVE) mg/dL Urine Ketones (NEGATIVE) mg/dL Urine Occult Blood (NEGATIVE) Urine Nitrite (NEGATIVE) Urine Bilirubin (NEGATIVE) Urine Urobilinogen (0.2-1.0) EU/dL Ur Leukocyte Esterase (NEGATIVE) Urine RBC (0-5) Urine WBC (0-5) Ur Epithelial Cells Amorphous Sediment Urine Bacteria Urine Mucus 10/24/20 Range/Units 12:31 WBC (4.5-11.0) K/uL RBC (4.30-5.90) M/uL Hgb (12.0-15.0) g/dL Hct (40.0-54.0) % MCV (80-98) fL MCH (27-31) pg MCHC (32-36) % Plt Count (150-400) K/uL Neut % (Auto) (36-66) % Lymph % (Auto) (24-44) % [place] % (Auto) (2-6) % Eos % (Auto) (2-4) % Baso % (Auto) (0-1) % Sodium (140-148) mmol/L Potassium (3.6-5.2) mmol/L Chloride (100-108) mmol/L Carbon Dioxide (21-32) mmol/L Anion Gap (5.0-14.0) mmol/L BUN (7-18) mg/dL Creatinine (0.8-1.3) mg/dL Est Cr Clr Drug Dosing mL/min Estimated GFR (MDRD) (>60) Glucose (74-106) mg/dL Lactic Acid (0.4-2.0) mmol/L Calcium (8.5-10.1) mg/dL Total Bilirubin (0.2-1.0) mg/dL AST (15-37) U/L ALT (12-78) U/L Alkaline Phosphatase (46-116) U/L Troponin I (0.000-0.056) ng/mL Total Protein (6.4-8.2) g/dL Albumin (3.4-5.0) g/dL Globulin (2.3-3.5) g/dL Albumin/Globulin Ratio (1.2-2.2) Lipase (73-393) U/L Urine Color Yellow (YELLOW) Urine Appearance Slightly cloudy A (CLEAR) Urine pH 8.5 H (5.0-8.0) Ur Specific [place] 1.015 (1.008-1.030) Urine Protein Negative (NEGATIVE) mg/dL Urine Glucose (UA) Negative (NEGATIVE) mg/dL Urine Ketones Negative (NEGATIVE) mg/dL Urine Occult Blood Trace-intact H (NEGATIVE) Urine Nitrite Negative (NEGATIVE) Urine Bilirubin Moderate H (NEGATIVE) Urine Urobilinogen 1.0 (0.2-1.0) EU/dL Ur Leukocyte Esterase Negative (NEGATIVE) Urine RBC 0-5 (0-5) Urine WBC 0-5 (0-5) Ur Epithelial Cells Not seen Amorphous Sediment Not seen Urine Bacteria Not seen Urine Mucus Not seen Meds: Medications Generic Name Dose Route Start Last Admin Trade Name Freq PRN Reason Stop Dose Admin Sodium Chloride 10 ml 10/24/20 09:47 10/24/20 10:10 Saline Flush FLUSH 10 ml ASDIRECTED PRN Administration Keep Vein Open Sodium Chloride 10 ml 10/24/20 10:16 10/24/20 10:26 Saline Flush FLUSH 10 ml ONETIME PRN Administration PER RADIOLOGY PROTOCOL Discontinued Medications Generic Name Dose Route Start Last Admin Trade Name Freq PRN Reason Stop Dose Admin Fentanyl 50 mcg 10/24/20 09:48 10/24/20 10:09 Sublimaze IVPUSH 10/24/20 09:49 50 mcg ONETIME ONE Administration Sodium Chloride 1,000 mls @ 500 mls/hr 10/24/20 09:47 10/24/20 10:10 Normal Saline IV 10/24/20 11:46 500 mls/hr .BOLUS STA Administration Sodium Chloride 70 mls @ 3 mls/sec 10/24/20 10:16 10/24/20 10:26 Normal Saline IV 10/24/20 10:17 3 mls/sec ONETIME ONE Administration Iopamidol 99 ml 10/24/20 10:16 10/24/20 10:27 Isovue-300 (61%) IV 99 ml . DIRECTED PRN Administration RADIOLOGY EXAM Departure - Departure Time of Disposition: 14:11 Disposition: DC/Tfer to Acute Hospital 02 Condition: Fair Clinical Impression: Pancreatitis Qualifiers: Chronicity: acute Pancreatitis type: unspecified pancreatitis type Acute pancreatitis complication: uninfected necrosis Qualified Code(s): K85.91 - Acute pancreatitis with uninfected necrosis, unspecified - Discharge Information Referrals: Dayron Waterman MD [Primary Care Provider] - Forms: ED Department Discharge Sepsis Event Note (ED) - Evaluation Sepsis Screening Result: Possible Sepsis Risk - Focused Exam Vital Signs: Vital Signs Temp Pulse Resp BP Pulse Ox 10/24/20 09:10 98.2 F 105 H 21 H 106/48 L 95 - My Orders Last 24 Hours: My Active Orders 10/24/20 09:47 Sodium Chloride 0.9% [Saline Flush] 10 ml FLUSH ASDIRECTED PRN Peripheral IV Insertion Adult [OM.PC] Urgent 10/24/20 09:48 Peripheral IV Care [RC] . DIRECTED 10/24/20 10:16 Sodium Chloride 0.9% [Saline Flush] 10 ml FLUSH ONETIME PRN - Assessment/Plan Last 24 Hours: My Active Orders 10/24/20 09:47 Sodium Chloride 0.9% [Saline Flush] 10 ml FLUSH ASDIRECTED PRN Peripheral IV Insertion Adult [OM.PC] Urgent 10/24/20 09:48 Peripheral IV Care [RC] . DIRECTED 10/24/20 10:16 Sodium Chloride 0.9% [Saline Flush] 10 ml FLUSH ONETIME PRN Plan: Assessment Acuity = acute Site and laterality = pancreatitis complicated patient with known history of coronary artery disease dyslipidemia hypertension and recent cholecystectomy early part of this year Etiology = unknown suspicious for obstructive pathology Manifestations = abdominal pain Location of injury = Home Lab values = WBC elevated 25.4 consistent leukocytosis lactic acid normal 1.6 total bilirubin elevated at 4.6 consistent hyperbilirubinemia AST at 418 ALT 493 alk phos elevated at 500 consistent with elevated liver enzymes troponin is negative albumin low at 2.8 consistent hypoalbuminemia lipase 15,335 consistent with a pancreatitis type pattern urinalysis unremarkable CT scan abdomen shows bladder wall thickening of uncertain significance punctate calcifications in the kidneys 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 Ultrasound unremarkable Plan Initially called [facility] for transfer they declined as they have no ERCP capabilities [facility] declined as they have no beds, I did contact [facility] spoke with Dr. Lyles hospitalist at 1400 he kindly accept the patient in transport will be transported via EMS ground This note was dictated using [employer] voice recognition software please call with any questions on syntax or grammar.
[2020-10-24] MEDS: Sodium Chloride 0.9% 10 ML Syringe FLUSH PRN ×2 (10:09→10:10)
[2020-10-24] MEDS ORDERED: Iopamidol 612 MG/ML 100 ML Bottle IV PRN (10:16)
[2020-10-24] MEDS ORDERED: Sodium Chloride 0.9% 10 ML Syringe FLUSH PRN (10:16)
--- NOTE | 2020-10-24 11:45 | CRLCT ---
INDICATION: Midline abdominal pain. TECHNIQUE: Contiguous axial CT images the abdomen and pelvis are acquired after the uneventful administration of IV contrast. Coronal and sagittal reformations generated and reviewed. COMPARISON: 03/17/2020. FINDINGS: Status post cholecystectomy. Minimal intra and extrahepatic biliary prominence within normal limits for cholecystectomy patient. There are no liver lesions identified. The pancreas is normal. Calcified granulomas in spleen which is otherwise unremarkable. Adrenal glands are normal. Kidneys enhance symmetrically. A few benign cysts are noted on the right kidney. A few punctate 3-4 mm nonobstructing stones are noted in the upper pole of the left kidney. No obstructing stones are identified over the course of either ureter. Mild prostatic hypertrophy. There is thickening of the bladder wall there is no evidence of bowel obstruction. The appendix is normal. Sigmoid diverticulosis without evidence of diverticulitis. No adenopathy in the abdomen or pelvis. Extensive aortic atherosclerosis without aneurysm. Celiac trunk is patent. 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 Renal arteries are patent. Bilateral common and external iliac arteries are patent with heavily calcified disease. No pneumoperitoneum. No free fluid. Visualized lung bases demonstrate extensive emphysema without acute opacity. Unchanged volume loss in left hemithorax. Normal heart size. There is no compression deformity in the lumbar spine. Mild multilevel degenerative changes. No acute or aggressive osseous abnormalities are noted. IMPRESSION: 1. Bladder wall thickening could be due to underdistention or hypertrophy due to outlet obstruction from prostatic hypertrophy. Correlate with urinalysis if there is concern for urinary tract infection. 2. Few punctate nonobstructing stones in upper pole of left kidney. No hydronephrosis or ureterolithiasis. 3. Sigmoid diverticulosis without evidence of diverticulitis. 4. Emphysema. Unchanged volume loss in left hemithorax from prior surgery. 5. 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 Celiac trunk and MORENA are patent. Please note that all CT scans at this facility use dose modulation, iterative reconstruction, and/or weight-based dosing when appropriate to reduce radiation dose to as low as reasonably achievable. Dictated by Ifeanyi Ruiz MD @ Oct 24 2020 11:30AM Signed by Dr. Ifeanyi Ruiz @ Oct 24 2020 11:44AM
--- NOTE | 2020-10-24 13:45 | CRLUS ---
Examination: US right upper quadrant Indication: Abnormal liver function test. Evaluate for obstruction. Technique: Multiple grayscale and color Doppler images of the right upper quadrant are acquired. Comparison: Abdomen/pelvis CT from earlier same day and from 03/17/2020. Findings: Liver: Normal liver echogenicity and contour. No liver lesions. No intra or extrahepatic biliary dilation. The portion of the common bile duct imaged by the assessment clinician measured 4 mm in diameter. On a CT earlier the same day, it measures up to 8 mm in diameter which is within normal limits for a cholecystectomy patient and unchanged from a CT in February. Main portal vein is patent with hepatopetal flow. Gallbladder: Surgically absent Pancreas: Largely obscured by bowel gas. Appearance was unremarkable on CT earlier same day. Right kidney: Limited views of the right kidney show no pelvocaliectasis. Right kidney measures 11.0 cm. Aorta: Largely obscured by bowel gas. No aneurysm identified on CT earlier same day. IVC: Patent Impression: 1. Status post cholecystectomy. No biliary dilation. 2. Otherwise unremarkable exam. Dictated by Ifeanyi Ruiz MD @ Oct 24 2020 1:35PM Signed by Dr. Ifeanyi Ruiz @ Oct 24 2020 1:43PM
[2020-10-24 14:53] VITALS: PULSE 66
== END 2020-10-24 15:13 ==
LOC: JP.ED 08:53
DX: K85.91 Acute pancreatitis with uninfected necrosis, unspecified (principal); I25.10 Atherosclerotic heart disease of native coronary artery without angina pectoris; E78.00 Pure hypercholesterolemia, unspecified; I10 Essential (primary) hypertension; K21.9 Gastro-esophageal reflux disease without esophagitis; Z87.891 Personal history of nicotine dependence; Z79.01 Long term (current) use of anticoagulants; Z95.5 Presence of coronary angioplasty implant and graft; Z88.6 Allergy status to analgesic agent; Z88.2 Allergy status to sulfonamides; Z79.82 Long term (current) use of aspirin; Z79.899 Other long term (current) drug therapy; Z79.02 Long term (current) use of antithrombotics/antiplatelets
CPT/HCPCS: 36415; 74177; 76705; 80053; 81001; 83605; 83690; 84484; 85025; 96374; 99285; J3010; J7030; Q9967

== ENCOUNTER 2021-03-23 14:51 | Emergency (ER) | payer MEDICARE, OTHER ==
[2021-03-23] MEDS ORDERED: Aluminum Hydroxide/Magnesium Hydroxide/Simethicone Susp 30 ML Cup PO ONE (15:15)
--- NOTE | 2021-03-23 15:25 | EDM.PDOC ---
ED HPI GENERAL MEDICAL PROBLEM - General Chief Complaint: Abdominal Pain Stated Complaint: CHEST PAINS Time Seen by Provider: 03/23/21 15:05 Source of Information: Reports: Patient, Family History Limitations: Reports: No Limitations - History of Present Illness INITIAL COMMENTS - FREE TEXT/NARRATIVE: 85-year-old male took some Tylenol with codeine on an empty stomach other than the Mountain Dew earlier today, and developed some epigastric discomfort radiating up under his chest over the past hour. No shortness of breath or diaphoresis. Symptoms are waxing and waning, last about 10 minutes and then go away, no radiation to his arms or neck, a small amount of pain in his back. He has had some persistent chest and back pain since a pneumonectomy, a CT scan of the chest done just 2 days ago was stable. No fevers or chills, no significant shortness of breath. He did not try any antacids. On arrival to the emergency room he looked comfortable but said his stomach still feels a little "sour". Onset: Sudden (Symptoms started fairly suddenly about an hour and a half ago) Location: Reports: Chest (Epigastric into the substernal area), Abdomen Improves with: Reports: None Worsens with: Reports: Movement (Movement makes him uncomfortable) Associated Symptoms: Reports: Chest Pain, Other (Mild nausea). Denies: Cough, Diaphoresis, Fever/Chills, Headaches, Shortness of Breath - Related Data Allergies Allergy/AdvReac Type Severity Reaction Status Date / Time naproxen sodium [From Aleve] Allergy Intermediate Other Verified 03/23/21 14:55 Sulfa (Sulfonamide Allergy Other Verified 03/23/21 14:55 Antibiotics) Home Meds: Home Meds Aspirin [Halfprin] 81 mg PO DAILY 03/24/16 [History] Simvastatin [Zocor] 20 mg PO BEDTIME 03/24/16 [History] Clopidogrel Bisulfate [Clopidogrel] 75 mg PO DAILY 01/12/20 [History] Nitroglycerin 0.4 mg SL ASDIRECTED 01/27/20 [History] Acetaminophen 500 mg PO BID PRN 03/22/20 [History] Felodipine [Felodipine ER] 10 mg PO DAILY 10/13/20 [History] Albuterol/Ipratropium [Combivent Respimat] 1 puff INH BID 10/24/20 [History] Acetaminophen with Codeine [Acetaminophen-Cod #3] 1 - 2 tab PO Q6H PRN 03/23/21 [History] Albuterol Sulfate [Albuterol Sulfate Hfa] 1 - 2 puff IH Q4H PRN 03/23/21 [History] Tiotropium [Spiriva Handihaler] 1 cap IH DAILY 03/23/21 [History] Past Medical History HEENT History: Reports: Cataract, Impaired Vision Other HEENT History: wears glasses Cardiovascular History: Reports: CAD, Heart Murmur, High Cholesterol, Hypertension, Stents, Syncope, Other (See Below) Other Cardiovascular History: Hospitialized at [facility] June 13 to .for syncopy Respiratory History: Reports: None Gastrointestinal History: Reports: GERD Genitourinary History: Reports: Renal Calculus Musculoskeletal History: Reports: Back Pain, Chronic Neurological History: Reports: None Psychiatric History: Reports: None Endocrine/Metabolic History: Reports: None Hematologic History: Reports: Anticoagulation Therapy Immunologic History: Reports: None Oncologic (Cancer) History: Reports: Lung Dermatologic History: Reports: None - Infectious Disease History Infectious Disease History: Reports: Chicken Pox, Measles, Mumps - Past Surgical History Head Surgeries/Procedures: Reports: None HEENT Surgical History: Reports: Cataract Surgery Cardiovascular Surgical History: Reports: Carotid Endarterectomy, Carotid Stents Other Cardiovascular Surgeries/Procedures: cardiac catherization, coronary angiography Respiratory Surgical History: Reports: Lung Biopsies, Lung Resection GI Surgical History: Reports: Cholecystectomy, Colonoscopy, EGD Male Surgical History: Reports: Vasectomy Endocrine Surgical History: Reports: None Neurological Surgical History: Reports: None Musculoskeletal Surgical History: Reports: None Oncologic Surgical History: Reports: None Dermatological Surgical History: Reports: None Social & Family History - Family History Family Medical History: No Pertinent Family History - Tobacco Use Tobacco Use Status *Q: Former Tobacco User Used Tobacco, but Quit: Yes Month/Year Tobacco Last Used: 2011 Second Hand Smoke Exposure: No - Caffeine Use Caffeine Use: Reports: Coffee, Soda Caffeine Use Comment: couple cups of coffee per day, one soda in afternoon - Recreational Drug Use Recreational Drug Use: No - Living Situation & Occupation Living situation: Reports: Occupation: Retired (lives with [employer], 10 [place] south of [place], [place]. near [place], [place] ED ROS GENERAL - Review of Systems Review Of Systems: See Below Constitutional: Denies: Fever, Chills HEENT: Reports: No Symptoms Respiratory: Denies: Shortness of Breath Cardiovascular: Reports: Chest Pain (Substernal radiating up from his upper abdomen, also some chronic right chest pain since surgery) GI/Abdominal: Reports: Abdominal Pain (Epigastric area only) : Reports: No Symptoms Musculoskeletal: Reports: Back Pain (Chronic back pain) Skin: Reports: No Symptoms Neurological: Reports: No Symptoms ED EXAM, GENERAL - Physical Exam Exam: See Below Exam Limited By: No Limitations General Appearance: Alert, No Apparent Distress (Looks entirely comfortable) Head: Atraumatic Neck: Supple, Non-Tender Respiratory/Chest: No Respiratory Distress, Chest Non-Tender (I cannot reproduce chest tenderness with palpation), Other (Decreased breath sounds in the right base which is chronic) Cardiovascular: Regular Rate, Rhythm. No: Gallop/S4 GI/Abdominal: Normal Bowel Sounds, Soft, Tender (Does have tenderness to palpation directly over the epigastric area) Extremities: No: Pedal Edema Neurological: Alert, Oriented Psychiatric: Normal Affect, Normal Mood Skin Exam: Warm, Dry Course - Vital Signs Last Recorded V/S: Last Vital Signs Temp 98 F 03/23/21 15:03 Pulse 65 03/23/21 16:01 Resp 18 03/23/21 16:01 BP 151/60 H 03/23/21 16:01 Pulse Ox 93 L 03/23/21 16:01 - Orders/Labs/Meds Labs: Laboratory Tests 03/23/21 03/23/21 Range/Units 15:15 15:15 WBC 5.0 (4.5-11.0) K/uL RBC 4.28 L (4.30-5.90) M/uL Hgb 12.6 (12.0-15.0) g/dL Hct 38.7 L (40.0-54.0) % MCV 90 (80-98) fL MCH 29 (27-31) pg MCHC 33 (32-36) % Plt Count 177 (150-400) K/uL Neut % (Auto) 62 (36-66) % Lymph % (Auto) 25 (24-44) % [place] % (Auto) 12 H (2-6) % Eos % (Auto) 1 L (2-4) % Baso % (Auto) 0 (0-1) % Sodium 145 (140-148) mmol/L Potassium 4.2 (3.6-5.2) mmol/L Chloride 105 (100-108) mmol/L Carbon Dioxide 31 (21-32) mmol/L Anion Gap 9.0 (5.0-14.0) mmol/L BUN 30 H (7-18) mg/dL Creatinine 1.0 (0.8-1.3) mg/dL Est Cr Clr Drug Dosing 52.21 mL/min Estimated GFR (MDRD) > 60 (>60) Glucose 92 (74-106) mg/dL Calcium 8.8 (8.5-10.1) mg/dL Troponin I < 0.017 (0.000-0.056) ng/mL Lipase 164 (73-393) U/L Meds: Medications Discontinued Medications Generic Name Dose Route Start Last Admin Trade Name Freq PRN Reason Stop Dose Admin Al Hydroxide/Mg Hydroxide 30 ml 03/23/21 15:15 03/23/21 15:21 Aluminum Hydroxide/Magnesium Hydroxide/Simethicone Susp 30 Ml Cup PO 03/23/21 15:16 30 ml ONETIME ONE Administration Fentanyl 50 mcg 03/23/21 16:10 03/23/21 16:15 Fentanyl 100 Mcg/2 Ml Sdv IM 03/23/21 16:11 50 mcg ONETIME ONE Administration - Re-Assessments/Exams Free Text/Narrative Re-Assessment/Exam: 03/23/21 16:11 30 cc of Maalox was given, CBC BMP and lipase were obtained as well as troponin. 30 minutes later he said it helped "some" but when he was still having pain, his labs returned reassuring with a troponin of 0. He was then given 50 mcg of fentanyl IM and told to return tomorrow if pain is persistent but to avoid any spicy meals tonight and to continue with antacids. Departure - Departure Time of Disposition: 16:37 Disposition: Home, Self-Care 01 Clinical Impression: Abdominal pain Qualifiers: Abdominal location: epigastric Qualified Code(s): R10.13 - Epigastric pain - Discharge Information Instructions: Abdominal Pain, Adult, [id number] Referrals: Dayron Waterman MD [Primary Care Provider] - Forms: ED Department Discharge Care Plan Goals: Continue with your current medications, consider an antacid if pain starts worsening and avoid any spicy meals for the next few days. Take your Tylenol with codeine with food. Return in 24 to 48 hours if not improving satisfactorily. Sepsis Event Note (ED) - Evaluation Sepsis Screening Result: No Definite Risk
[2021-03-23 16:02] VITALS: BP 151/60; PULSE 65
[2021-03-23] MEDS ORDERED: fentaNYL 100 MCG/2 ML SDV IM ONE (16:10)
== END 2021-03-23 16:44 | disposition home or self-care (01) ==
LOC: JP.ED 14:51
DX: R10.13 Epigastric pain (principal); I25.10 Atherosclerotic heart disease of native coronary artery without angina pectoris; E78.00 Pure hypercholesterolemia, unspecified; I10 Essential (primary) hypertension; Z79.82 Long term (current) use of aspirin; Z79.02 Long term (current) use of antithrombotics/antiplatelets; Z88.8 Allergy status to other drugs, medicaments and biological substances; Z79.899 Other long term (current) drug therapy; Z95.5 Presence of coronary angioplasty implant and graft; Z87.891 Personal history of nicotine dependence; Z88.2 Allergy status to sulfonamides
CPT/HCPCS: 36415; 80048; 83690; 84484; 85025; 96372; 99284; A9270; J3010

== ENCOUNTER 2021-06-28 13:44 | Emergency (ER) | payer MEDICARE, OTHER ==
[2021-06-28 15:26] VITALS: BP 142/62; PULSE 61
--- NOTE | 2021-06-28 16:53 | EDM.PDOC ---
ED HPI GENERAL MEDICAL PROBLEM - General Chief Complaint: Flank Pain Stated Complaint: PAIN IN CHEST ARM AND UNDER ARMPIT Time Seen by Provider: 06/28/21 16:00 Source of Information: Reports: Patient, Family, RN Notes Reviewed - History of Present Illness INITIAL COMMENTS - FREE TEXT/NARRATIVE: 85-year-old male with a history of lung cancer with lung resection with Dr. Rooney here in [place] has now been followed with oncology hematology in [place] and apparently got an infusion today. Subsequent to the infusion the patient noted some chest pain on the left or in the flank and call Dr. Galaviz office in [place] and they suggested that the patient be seen in the emergency department. This pain is something the patient has had before since the incision and lung resection. It is not new. He does not have any increase shortness of breath. He is on oxygen that has been for months. He otherwise has not noticed any change. No fever or chills. No increasing fatigue - Related Data Allergies Allergy/AdvReac Type Severity Reaction Status Date / Time naproxen sodium [From Aleve] Allergy Intermediate Other Verified 06/28/21 15:06 Sulfa (Sulfonamide Allergy Other Verified 06/28/21 15:06 Antibiotics) Home Meds: Home Meds RX: Aspirin [Halfprin] 81 mg PO DAILY 03/24/16 [History] RX: Simvastatin [Zocor] 20 mg PO BEDTIME 03/24/16 [History] RX: Clopidogrel Bisulfate [Clopidogrel] 75 mg PO DAILY 01/12/20 [History] RX: Nitroglycerin 0.4 mg SL ASDIRECTED 01/27/20 [History] RX: Acetaminophen 500 mg PO BID PRN 03/22/20 [History] RX: Felodipine [Felodipine ER] 10 mg PO DAILY 10/13/20 [History] Albuterol/Ipratropium [Combivent Respimat] 1 puff INH BID 10/24/20 [History] Albuterol Sulfate [Albuterol Sulfate Hfa] 1 - 2 puff IH Q4H PRN 03/23/21 [History] Tiotropium [Spiriva Handihaler] 1 cap IH DAILY 03/23/21 [History] Past Medical History HEENT History: Reports: Cataract, Impaired Vision Other HEENT History: wears glasses Cardiovascular History: Reports: CAD, Heart Murmur, High Cholesterol, Hypertension, Stents, Syncope, Other (See Below) Other Cardiovascular History: Hospitialized at [facility] June 13 to .for syncopy Respiratory History: Reports: None Gastrointestinal History: Reports: GERD Genitourinary History: Reports: Renal Calculus Musculoskeletal History: Reports: Back Pain, Chronic Neurological History: Reports: None Psychiatric History: Reports: None Endocrine/Metabolic History: Reports: None Hematologic History: Reports: Anticoagulation Therapy Immunologic History: Reports: None Oncologic (Cancer) History: Reports: Lung Dermatologic History: Reports: None - Infectious Disease History Infectious Disease History: Reports: Chicken Pox, Measles, Mumps - Past Surgical History Head Surgeries/Procedures: Reports: None HEENT Surgical History: Reports: Cataract Surgery Cardiovascular Surgical History: Reports: Carotid Endarterectomy, Carotid Stents Other Cardiovascular Surgeries/Procedures: cardiac catherization, coronary angiography Respiratory Surgical History: Reports: Lung Biopsies, Lung Resection Other Respiratory Surgeries/Procedures: lung ca keytruda infusion 06/27/21 GI Surgical History: Reports: Cholecystectomy, Colonoscopy, EGD Male Surgical History: Reports: Vasectomy Endocrine Surgical History: Reports: None Neurological Surgical History: Reports: None Musculoskeletal Surgical History: Reports: None Oncologic Surgical History: Reports: None Dermatological Surgical History: Reports: None Social & Family History - Family History Family Medical History: No Pertinent Family History - Tobacco Use Tobacco Use Status *Q: Former Tobacco User Years of Tobacco use: 60 Packs/Tins Daily: 1 Used Tobacco, but Quit: Yes Month/Year Tobacco Last Used: 08/2013 - Caffeine Use Caffeine Use: Reports: Coffee Caffeine Use Comment: couple cups of coffee per day, one soda in afternoon - Recreational Drug Use Recreational Drug Use: No - Living Situation & Occupation Living situation: Reports: Occupation: Retired (lives with [employer], 10 miles south of [place], [place]. near [place], [place].) ED ROS GENERAL - Review of Systems Review Of Systems: Comprehensive ROS is negative, except as noted in HPI. ED EXAM, GI/ABD - Physical Exam Exam: See Below Text/Narrative:: 85-year-old male sitting quietly on the gurney with normal vital signs. HEENT is okay without evidence of trauma. Neck is supple normal range of motion Chest is generally clear with a regular rate and rhythm except that he has no breath sounds below the scar from prior surgery on the left side of his chest. No pain on compression Abdomen soft active bowel sounds skin extremities otherwise normal neurologic physiologic DTR and tone Course - Vital Signs Text/Narrative:: Chest x-ray does show possible fluid on the left but also reflection of lung resection. Picture is somewhat similar to prior imaging of about a year ago. Patient is referred back to his primary with no other interventions at the moment Last Recorded V/S: Last Vital Signs Temp 36.5 C 06/28/21 15:24 Pulse 61 06/28/21 15:25 Resp 16 06/28/21 15:25 BP 142/62 H 06/28/21 15:25 Pulse Ox 96 06/28/21 15:25 - Orders/Labs/Meds Orders: Active Orders 24 hr Category Date Time Status Chest 1V Frontal [CR] Stat Exams 06/28/21 16:45 Taken Departure - Departure Time of Disposition: 18:00 Disposition: Home, Self-Care 01 Clinical Impression: Chest pain, History of pneumonectomy - Discharge Information Referrals: Dayron Waterman MD [Primary Care Provider] - Forms: ED Department Discharge Sepsis Event Note (ED) - Evaluation Sepsis Screening Result: No Definite Risk - Focused Exam Vital Signs: Vital Signs Temp Pulse Resp BP Pulse Ox 06/28/21 15:25 61 16 142/62 H 96 06/28/21 15:24 36.5 C 71 15 157/56 H 91 L 06/28/21 15:10 36.5 C 71 15 157/56 H 91 L - My Orders Last 24 Hours: My Active Orders 06/28/21 16:45 Chest 1V Frontal [CR] Stat - Assessment/Plan Last 24 Hours: My Active Orders 06/28/21 16:45 Chest 1V Frontal [CR] Stat
--- NOTE | 2021-06-29 09:32 | CR ---
CHEST: Portable chest 06/28/2021 at 5:03 PM CLINICAL HISTORY:Pain COMPARISON:November 2020 FINDINGS: Patient is status post partial left pneumonectomy. Right lung is mildly hyperaerated. Heart and pulmonary vascularity appear normal as seen. There are atherosclerotic changes in the aorta. Impression: Status post partial left pneumonectomy No acute cardiopulmonary process.
== END 2021-06-28 18:28 | disposition home or self-care (01) ==
LOC: JP.ED 13:44
DX: R07.9 Chest pain, unspecified (principal); I25.10 Atherosclerotic heart disease of native coronary artery without angina pectoris; E78.00 Pure hypercholesterolemia, unspecified; I10 Essential (primary) hypertension; Z95.5 Presence of coronary angioplasty implant and graft; Z88.5 Allergy status to narcotic agent; Z88.2 Allergy status to sulfonamides; Z79.899 Other long term (current) drug therapy; Z79.82 Long term (current) use of aspirin; Z79.02 Long term (current) use of antithrombotics/antiplatelets; Z87.891 Personal history of nicotine dependence; Z90.2 Acquired absence of lung [part of]
CPT/HCPCS: 71045; 71045-26; 99284-25